=== PATIENT | female | born 1995 | race Two or more races ===

== ENCOUNTER 2023-05-14 10:37 | Outpatient (OUT) | payer BC, SELFPAY ==
--- NOTE | 2023-05-14 | US_ITS ---
[address] [address] Patient Name: EMIGDIO AMES MRN: [id number] date: 1995 Sex: F Assigned Patient Location: US Current Patient Location: LAB Accession/Order Number: [id number] Exam Date: 05/14/2023 10:40 Report Date: 05/14/2023 11:39 At the request of: SKYE GOINS Procedure: US OB transvaginal EXAMINATION: US OB transvaginal HISTORY: ANATOMY COMPARISON: No relevant comparison available. FINDINGS: Claros intrauterine gestation Gestational sac: 4.6 cm, 10 weeks 1 day CRL: 4.2 cm, 11 weeks 1 day Yolk sac: 4.5 mm Heart rate: 162 bpm. Cervix: Closed, 3.2 cm Uterus: Normal, anteverted, anteflexed The ovaries are normal Clinical age: 14 weeks 1 day Clinical GANESH: 11/11/2023 Ultrasound age: 11 weeks 1 day Ultrasound GANESH: 12/02/2023 US/US OB transvaginal IMPRESSION: Viable claros intrauterine gestation measuring 11 weeks 1 day Electronically authenticated by: ZHEN MATT Date: 05/14/2023 11:39
== END 2023-05-14 10:38 | disposition home or self-care (01) ==
LOC: US 10:37
PROVIDERS: Visit Provider Obstetrics & Gynecology
DX: Z34.80 Encounter for supervision of other normal pregnancy, unspecified trimester (principal); Z3A.10 10 weeks gestation of pregnancy; N92.6 Irregular menstruation, unspecified
CPT/HCPCS: 36415; 76817; 83036; 84443; 85025; 86592; 86762; 86803; 86850; 86900; 86901; 87086; 87340; 87389

== ENCOUNTER 2023-05-14 11:35 | Outpatient (OUT) | payer BC, SELFPAY ==
[2023-05-14 12:11] LABS: Basophils Absolute Auto 0.1 10^3/uL (0.0-0.1); Basophils Percent Auto 0.8 % (0.2-2.0); Eosinophils Absolute Auto 0.1 10^3/uL (0.0-0.7); Eosinophils Percent Auto 0.8 % (0.9-7.0); Hematocrit 39.3 % (36.0-48.0); Hemoglobin 13.3 g/dL (12.0-16.0); Immature Granulocytes Abs Auto 0.02 10^3/uL (0.00-0.03); Immature Granulocytes Pct Auto 0.3 % (0.0-0.5); Lymphocytes Absolute Auto 1.6 10^3/uL (1.2-3.8); Lymphocytes Percent Auto 26.5 % (20.5-60.0); Mean Corpuscular HGB Conc 33.8 g/dL (29.9-35.2); Mean Corpuscular Hemoglobin 31.7 pg (26.7-34.0); Mean Corpuscular Volume 93.8 fL (81.0-99.0); Mean Platelet Volume 8.8 fL (9.5-13.5); Monocytes Absolute Auto 0.4 10^3/uL (0.3-0.8); Monocytes Percent Auto 6.2 % (1.7-12.0); Neutrophils Percent Auto 65.4 % (43.0-75.0); Platelet Count 332 10^3/uL (150-450); Red Blood Count 4.19 10^6/uL (4.20-5.40); Red Cell Distribution Width 11.1 % (11.0-15.0); White Blood Count 6.1 10^3/uL (4.0-11.0)
[2023-05-14 12:41] LABS: Estimated Average Glucose 108 mg/dL; Glycohemoglobin A1C 5.4 % (4.5-6.2)
[2023-05-14 12:50] LABS: Thyroid Stimulating Hormone 1.303 uIU/mL (0.358-3.740)
[2023-05-15 06:08] LABS: HBsAg Screen Negative (Negative); HCV Ab Non Reactive (Non Reactive); HIV Ab/p24 Ag Screen Non Reactive (Non Reactive); Rubella Antibodies, IgG 3.23 index (Immune >0.99)
[2023-05-15 11:08] LABS: Rapid Plasma Reagin, Quant Non Reactive titer (NonRea<1:1)
== END 2023-05-14 11:36 | disposition home or self-care (01) ==
LOC: LAB 11:36
PROVIDERS: Visit Provider Obstetrics & Gynecology
DX: Z34.80 Encounter for supervision of other normal pregnancy, unspecified trimester (principal)
CPT/HCPCS: 36415; 83036; 84443; 85025; 86592; 86762; 86803; 86850; 86900; 86901; 87086; 87340; 87389

== ENCOUNTER 2023-06-14 20:32 | Outpatient (REF) | payer BC, SELFPAY ==
[2023-06-17 13:10] LABS: Age Gdln ACOG Testing Note (.); IGP, rfx Aptima HPV ASCU Note (.)
== END 2023-06-14 20:33 | disposition home or self-care (01) ==
LOC: LAB 20:32
PROVIDERS: Visit Provider Obstetrics & Gynecology
DX: Z01.419 Encounter for gynecological examination (general) (routine) without abnormal findings (principal)
CPT/HCPCS: G0145

== ENCOUNTER 2023-09-10 11:15 | Outpatient (OUT) | payer BC, SELFPAY ==
--- OUTSIDE RECORDS SUMMARY | 2023-09-10 11:25 | XMS_ITS | CCD ---
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 0 07/14/2023 Discontinued (Therapy completed) 24 hr buPROPion hydrochloride 150 mg extended release oral tablet (4 sources) Aminoketone take 1 tablet by mouth every twenty-four hours in the morning buPROPion XL (Wellbutrin XL) 150 MG 24 hr tablet Take 150 mg by mouth in the morning. 0 Active dextroamphetamine/amphe tamine (ADDERALL XR ORAL) (2 sources) take 30 mg by mouth every other day, then take 10 mg by mouth every other day dextroamphetamine /amphetamine (ADDERALL XR ORAL) Take 30 mg by mouth every other day. 10mg on every other day 0 Active take 30 mg by mouth in the morning dextroamphetamine/amphetamine (ADDERALL XR ORAL) Take 30 mg by mouth in the morning. 0 Active docusate sodium 100 mg oral capsule (4 sources) Start: 03-31-2023 take 1 capsule by mouth in the morning docusate sodium (Colace) 100 MG capsule Take 100 mg by mouth in the morning. 0 03/31/2023 Active docusate sodium (COLACE ORAL) Take by mouth. 0 Active ondansetron 4 mg oral tablet (2 sources) Serotonin-3 Receptor Antagonist take 1 tablet by mouth every eight hours as needed for nausea and vomiting ondansetron (ZOFRAN) 4 mg tablet Take 1 tablet (4 mg total) by mouth every 8 (eight) hours as needed for nausea or vomiting. 0 Active PNV no.95/ferrous fum/folic ac ( ORAL) (2 sources) PNV no.95/ferrou s fum/folic ac ( ORAL) Take by mouth. 0 Active MV-Min-Fe Fum-FA-DHA ( 1 PO) (2 sources) MV-Min- Fe Fum-FA-DHA ( 1 PO) Take by mouth 0 Active valACYclovir 500 mg oral tablet (4 sources) Herpesvirus Nucleoside Analog DNA Polymerase Inhibitor, Herpes Simplex Virus Nucleoside Analog DNA Polymerase Inhibitor, Herpes Zoster Virus Nucleoside Analog DNA Polymerase Inhibitor take 1 tablet by mouth in the morning valACYclovir (Valtrex) 500 MG tablet Take 500 mg by mouth in the morning. 0 Active valacyclovir HCl (VALTREX ORAL) Take by mouth. 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 ; Translations: [Other mental disorders complicating , unspecified trimester] Onset: 07-05-2023 07-05-2023 Episodic Other complications of (1 source) Maternal drug exposure; Translations: [Supervision of other high risk pregnancies, first trimester] 07-06-2023 Episodic Other and delivery including normal (2 sources) Second trimester ; Translations: [Encounter for supervision of normal , unspecified, second trimester] 07-09-2023 Episodic Other screening for suspected conditions (not mental disorders or infectious disease) (1 source) Patient encounter status; Translations: [Encounter for other specified screening] 07-06-2023 Episodic Residual codes; unclassified (1 source) Gestation period, 18 weeks; Translations: [18 weeks gestation of ] 07-05-2023 Episodic Results Test Name Value Interpretation Reference Range Facil ity Urinalysis macro (dipstick) panel (U)Ordered By: Celia Chou on 07-14-2023 Bilirubin, UA Negative Negative - 4(70) +++ mg/dL [facility] Blood, UA Negative Negative - 50 Jer/mcL [facility] Clarity, UA Clear [facility] Color, UA Yellow [facility] Glucose, UA Negative Negative - 1999(110) ++++ mg/dL [facility] Interpretation and review of laboratory results Abnormal [facility] Ketones, UA Negative Negative - 160(16) ++++ mg/dL [facility] Leukocytes, UA Positive Negative - 500+++ Aretha/mcL [facility] Nitrite, UA Negative Negative - Positive [facility] pH, UA 6.5 5 - 9 [facility] [place] Protein, UA Negative Negative - 1999(20) ++++ mg/dL [facility] Spec Grav, UA 1.010 1 - 1.03 [facility] Urobilinogen, UA 0.2 0.2 - 12 mg/dL [facility] with or without consu lton 07-06-2023 IMPRESSION: 1. Single intrauterine size consistent with dates. 2. Transvaginal Cervical Length = 3.1 cm. RECOMMENDATIONS: 1. Please see M consultation documentation from today's encounter. 2. Subsequent follow up or other follow up as clinically determined by primary OB provider unless otherwise specified by [facility]. 3. Results forwarded to ordering provider so they can follow up with the patient as necessary. [facility] OBSTETRICS REPORT (Signed Final 07/06/2023 11:40) PATIENT INFO: ID #: [id number] : [birth year] (28 yrs)(F) Name: EMIGDIO VAZQUEZ Visit Date: 07/06/2023 10:12 PERFORMED BY: Attending: Frandy Zavala MD Performed By: Dinorah Rivers RDMS Referred By: Juan Weaver. Address: [address] [place] [address] [place] [address] Location: [facility] SERVICE(S) PROVIDED: Comprehensive Anatomic Survey 15567 OB Transvaginal 74028 INDICATIONS: Screening for anatomic survey Z36.89 Screening for cervical length Z36.86 Known or suspected damage to fetus by O35.5XX0 drugs ; adderall use VITAL SIGNS: Weight (lb): 141.2 Height: 5'4 BMI: 24.23 EVALUATION: Num Of Fetuses: 1 Heart Rate(bpm): 149 Cardiac Activity: Present & appears normal Presentation: Cephalic Placenta: Anterior, away from cervical os P. Cord Insertion: Eccentric (>2cm from edge) Amniotic Fluid BRITTNI FV: Subjectively within normal limits BIOMETRY: BPD: 40.7 mm G.Age: 18w 2d 53 % OFD: 53.9 mm HC: 153 mm G.Age: 18w 2d 43 % AC: 130.6 mm G.Age: 18w 4d 58 % FL: 25.8 mm G.Age: 17w 6d 27 % HUM: 25.5 mm G.Age: 18w 0d 46 % CER: 18.6 mm G.Age: 18w 2d 53 % NFT: 4.28 mm LV: 5.7 mm CM: 6.3 mm TIB: 22.9 mm G.Age: 18w 1d 50 % CI: 75.5 % 70 - 86 FL/HC: 16.9 % 15.8 - 18 HC/AC: 1.17 1.07 - 1.29 FL/BPD: 63.4 % FL/AC: 19.8 % 20 - 24 Est. FW: 230 gm 0 lb 8 oz 42 % OB HISTORY: : 2 SAB: 1 GESTATIONAL AGE: LMP: 18w 2d Date: 02/28/23 GANESH: 12/05/23 U/S Today: 18w 2d GANESH: 12/05/23 Best: 18w 2d Det. By: LMP (02/28/23) GANESH: 12/05/23 TARGETED ANATOMY: Central Nervous System Calvarium/Cranial V.: Appears normal Intracranial Eliza: Appears normal Cavum: Appears normal Parenchyma: Appears Normal Lateral Ventricles: Appears normal Choroid Plexus: Appears normal Cereb./Vermis: Appears normal Cisterna Magna: Appears normal Midline Falx: Appears Normal Spine Cervical: Appears normal Thoracic: Appears normal Lumbar: Appears normal Sacral: Appears normal Shape/Curvature: Appears Normal Head/Neck Face: Not well visualized Lips: Appears normal Neck: Could not document Nuchal Fold: Appears normal Nasal Bone: Could Not Document Profile: Could not document Orbits/Eyes: Could not document Mandible: Could not document Maxilla: Could not document Thorax Thoracic Contour: Could not document Lungs: Could not document 4 Chamber View: Appears normal Cardiac Activity: Appears Normal Cardiac Rhythm: Normal Cardiac Situs: Appears normal Rt Outflow Tract: Could not document Lt Outflow Tract: Could not document Aortic Arch: Could not document Ductal Arch: Could not document SVC: Could not document Interventr. Septum: Not well visualized Cardiac [place]: Appears normal Diaphragm: Not well visualized 3 Vessel View: Appears normal 3 V Trachea View: Not well visualized IVC: Could not document Crossing: Could not document Abdomen Ventral Wall: Appears normal Cord Insertion: Appears normal Situs: Ap (more content not included)... [facility] Frandy Zavala MD - 07/06/2023 OBSTETRICS REPORT (Signed Final 07/06/2023 11:40) PATIENT INFO: ID #: [id number] : [birth year] (28 yrs)(F) Name: EMIGDIO VAZQUEZ Visit Date: 07/06/2023 10:12 PERFORMED BY: Attending: Frandy Zavala MD Performed By: Dinorah Rivers RDMS Referred By: Juan Palafox DO Ref. Address: [address] [place] [address] [place] [address] Location: [facility] SERVICE(S) PROVIDED: Comprehensive Anatomic Survey 21202 OB Transvaginal 19733 INDICATIONS: Screening for anatomic survey Z36.89 Screening for cervical length Z36.86 Known or suspected damage to fetus by O35.5XX0 drugs ; adderall use VITAL SIGNS: Weight (lb): 141.2 Height: 5'4 BMI: 24.23 EVALUATION: Num Of Fetuses: 1 Heart Rate(bpm): 149 Cardiac Activity: Present & appears normal Presentation: Cephalic Placenta: Anterior, away from cervical os P. Cord Insertion: Eccentric (>2cm from edge) Amniotic Fluid BRITTNI FV: Subjectively within normal limits BIOMETRY: BPD: 40.7 mm G.Age: 18w 2d 53 % OFD: 53.9 mm HC: 153 mm G.Age: 18w 2d 43 % AC: 130.6 mm G.Age: 18w 4d 58 % FL: 25.8 mm G.Age: 17w 6d 27 % HUM: 25.5 mm G.Age: 18w 0d 46 % CER: 18.6 mm G.Age: 18w 2d 53 % NFT: 4.28 mm LV: 5.7 mm CM: 6.3 mm TIB: 22.9 mm G.Age: 18w 1d 50 % CI: 75.5 % 70 - 86 FL/HC: 16.9 % 15.8 - 18 HC/AC: 1.17 1.07 - 1.29 FL/BPD: 63.4 % FL/AC: 19.8 % 20 - 24 Est. FW: 230 gm 0 lb 8 oz 42 % OB HISTORY: : 2 SAB: 1 GESTATIONAL AGE: LMP: 18w 2d Date: 02/28/23 GANESH: 12/05/23 U/S Today: 18w 2d GANESH: 12/05/23 Best: 18w 2d Det. By: LMP (02/28/23) GANESH: 12/05/23 TARGETED ANATOMY: Central Nervous System Calvarium/Cranial V.: Appears normal Intracranial Eliza: Appears normal Cavum: Appears normal Parenchyma: Appears Normal Lateral Ventricles: Appears normal Choroid Plexus: Appears normal Cereb./Vermis: Appears normal Cisterna Magna: Appears normal Midline Falx: Appears Normal Spine Cervical: Appears normal Thoracic: Appears normal Lumbar: Appears normal Sacral: Appears normal Shape/Curvature: Appears Normal Head/Neck Face: Not well visualized Lips: Appears normal Neck: Could not document Nuchal Fold: Appears normal Nasal Bone: Could Not Document Profile: Could not document Orbits/Eyes: Could not document Mandible: Could not document Maxilla: Could not document Thorax Thoracic Contour: Could not document Lungs: Could not document 4 Chamber View: Appears normal Cardiac Activity: Appears Normal Cardiac Rhythm: Normal Cardiac Situs: Appears normal Rt Outflow Tract: Could not document Lt Outflow Tract: Could not document Aortic Arch: Could not document Ductal Arch: Could not document SVC: Could not document Interventr. Septum: Not well visualized Cardiac [place]: Appears normal Diaphragm: Not well visualized 3 Vessel View: Appears normal 3 V Trachea View: Not well visualized IVC: Could not document Crossing: Could not document Abdomen Ventral Wall: Appears normal Cord Insertion: Appears normal Situs: Appears normal Stomach: Appears normal Lt Kidney: Appears normal Rt Kidney: Appears normal Bladder: Appears normal Bowel: Appears normal Extremities Lt Humerus: Appears normal Rt Humerus: Appears normal Lt Forearm: Appears normal Rt Forearm: Appears normal Lt Hand: Not well visualized Rt Hand: Appears normal Lt Femur: Appears normal Rt Femur: Appears normal Lt Lower Leg: Appears normal Rt Lower Leg: Appears normal Lt Foot: Appears normal Rt Foot: Appears normal Other Umbilical Cord: Appears normal Genitalia: Male CERVIX UTERUS ADNEXA: Cervix Length: 3.11 cm. Appears closed, without funnelling Uterus Gravid uterus Right Ovary Not visualized Left Ovary Not visualized [place] No fluid seen Adnexa No adnexal masses identified COMMENTS: 1. Ultrasound is not diagnostic for feta (more content not included)... [facility] Radiology Study observation (narrative) [facility] Unlisted Genetic Teston 05-01 SEE SCANNED REPORT MANUAL LY TRANSCRIBED RESULTS [facility] HIV 1&2 AB/AG Screen (P24 AG )on 05-18-2023 HIV 1&2 AB/AG Non-Reactive [facility] Hepatitis B surface antigeno n 05-18-2023 Hepatitis B Surface Antigen Negative [facility] No Panel Informationon 05-18 [facility] Rubella IGG immune statuson 05-18-2023 Rubella immune IgG immune [facility] Syphilis Total(Unknown Syphi lis Status)on 05-18-2023 Syphilis Non-Reactive [facility] TSHon 05-14-2023 Thyroid Stimulating (3Rd Generation) Hormone/ Tsh 1.303 [facility] Ultrasound officeon 05-14-20 SEE SCANNED REPORT MANUAL LY TRANSCRIBED RESULTS [facility] Radiology Study observation (narrative) [facility] Vital Signs Date Time Vital Sign Value Performing Clinician Faci lity 07-14-2023 09:45-0500 Body weight 64.77 kg Geovanna HUIZAR Work Phone: [facility] 07-14-2023 09:45-0500 Diastolic blood pressure 70 mm[Hg] Geovanna HUIZAR Work Phone: [facility] 07-14-2023 09:45-0500 Systolic blood pressure 112 mm[Hg] Geovanna HUIZAR Work Phone: [facility] 07-06-2023 10:17-0500 Body height 162.6 cm Frandy Zavala MD Work Phone: [facility] 07-06-2023 10:17-0500 Body mass index (BMI) [Ratio] 24.2 kg/m2 Frandy Zavala MD Work Phone: [facility] 07-06-2023 10:17-0500 Body weight 63.96 kg Frandy Zavala MD Work Phone: [facility] 07-06-2023 10:17-0500 Diastolic blood pressure 82 mm[Hg] Frandy Zavala MD Work Phone: [facility] 07-06-2023 10:17-0500 Heart rate 88 /min Frandy Zavala MD Work Phone: [facility] 07-06-2023 10:17-0500 Systolic blood pressure 127 mm[Hg] Frandy Zavala MD Work Phone: [facility] Encounters Encounter Date Encounter Type Care Provider Facility Start: 07-14-2023 End: 07-14-2023 flow sheet Geovanna HUIZAR Work Phone: [facility] Comment on above: Second trimester pre gnancy Start: 07-06-2023 End: 07-06-2023 Office consultation new/estab patient 60 min Frandy Zavala MD Work Phone: [facility] Comment on above: 18 weeks gestation o f (Primary Dx); Attention deficit hyperactivity disorder (ADHD), unspecified ADHD type; Depression affecting ; Medication exposure during first trimester of ; Encounter for anatomic survey Start: 06-18-2023 Chart abstracting Frandy chilel MD Work Phone: [facility] Procedures Date Procedure Procedure Detail Performing Clinician Start: 07-14-2023 Urnls dip stick/tabl et rgnt non-auto w/o micrscp Geovanna HUIZAR Work Phone: Start: 05-18-2023 HIV 1&2 AB/AG SCREEN (P24 AG) Not In System Ref Prov Start: 05-18-2023 [place] hepatitis b surface antigen Not In System Ref Prov Start: 05-18-2023 Syphilis test non-treponemal antibody qual Not In System Ref Prov Start: 05-14-2023 Assay of thyroid stimulating hormone tsh Not In System Ref Prov Start: 05-14-2023 UNLISTED GENETIC TEST N ot In System Ref Prov Start: 05-14-2023 US OFFICE Not In Sys tem Ref Prov Plan of Treatment Date Care Activity Detail Author Start: 07-06-2024 Adult BMI Screening Adult BMI Screen ing [facility] Start: 07-06-2024 Tobacco Screening Tobacco Screening [facility] Start: 07-06-2024 End: 07-06-2024 US MFM with or without consult US MFM with or without consult Imaging Routine Encounter for anatomic survey Expected: 07/06/2024 (Approximate), Expires: 07/06/2024 [facility] Work Phone: Comment on above: Expected: 07/06/2024 (Approximate), Expires: 07/06/2024 Start: 08-12-2023 End: 08-12-2023 Patient encounter procedure 08/12/2023 2:15 PM EDT Appointment [facility] [address] [place] [address] [facility] Start: 08-11-2023 End: 08-11-2023 Patient encounter procedure 08/11/2023 1:50 PM EDT Routine [facility] [address] [place] [address] Juan Palafox, [address] [place] [address] [facility] Start: 07-06-2023 End: 07-06-2023 Patient encounter procedure 07/06/2023 10:30 AM EST Office Visit [facility] [address] [place] [address] Frandy Zavala MD [address] [facility], [address] [place] [address] [facility] Start: 07-06-2023 End: 07-06-2023 Patient encounter procedure 07/06/2023 9:15 AM EST Appointment [facility] [address] [place] [address] [facility] Start: 01-29-2023 COVID-19 Vaccine ( season) COVID-19 Vaccine ( season) [facility] Start: 01-29-2023 Influenza vaccination Influenza Vacc ine [facility] Start: 01-03-2017 DTaP,Tdap and Td Vaccines (7 - Td or Tdap) DTaP,Tdap and Td Vaccines (7 - Td or Tdap) [facility] Start: 2015 Screening for malign ant neoplasm of cervix Pap Smear [facility] Start: 2013 DTaP,Tdap and Td Vaccines (1 - Tdap) DTaP,Tdap and Td Vaccines (1 - Tdap) [facility] Start: 02-05-2012 Adult BMI Screening Adult BMI Screen ing [facility] Start: 2006 Depression Screening Depression Scre ening [facility] Start: 2006 Tobacco Screening Tobacco Screening [facility] Payers Date Payer Category Payer Unknown [id number] Social History Date Type Detail Facility Start: 06-18-2023 Tobacco smoking stat [facility] Tobacco smoking consumption unknown [facility] Start: 03-11-2023 [facility] Start: 1995 Sex Assigned At Female P [facility] Start: 12-03-2022 Gender identity Identifies as female gender (finding) [facility] Start: 07-06-2023 Sexual orientation Not on file [facility] Start: 07-06-2023 Tobacco smoking stat [facility] Ex-smoker [facility] History of tobacco use Current smoker [facility] History of tobacco use Cigarette Smoker P [facility] Start: 07-06-2023 Tobacco use and exposure Smoke less tobacco non-user [facility] Start: 07-06-2023 Alcohol intake Ex-drinker (finding) [facility] Start: 07-06-2023 History of Social function [facility] Within the past 12 months we worried whether our food would run out before we got money to buy more. Never True [facility] History of Present illness Narrative 07-14-2023 BHUPENDRA Spicer - 07/14/2023 9:30 AM EST Note Date & Type Note Facility 07-14-2023 History of Presen t illness Narrative Reason for Appointment: Patient ID: Emigdio Vazquez is a 28 y.o. female who presents for Routine Visit Patient presents today for Return OB appointment. Current Medications: has a current medication list which includes the following prescription(s): bupropion xl, docusate sodium, mv-min-fe fum-fa-dha, and valacyclovir. Medical History: Active Ambulatory Problems Diagnosis Date Noted No Active Ambulatory Problems Resolved Ambulatory Problems Diagnosis Date Noted No Resolved Ambulatory Problems No Additional Past Medical History Family History Problem Relation Name Age of Onset Cervical cancer Mother Hypertension Mother Heart attack Father Social History Tobacco Use Smoking status: Not on file Smokeless tobacco: Not on file Substance Use Topics Alcohol use: Not on file Drug use: Not on file History reviewed. No pertinent surgical history. No Known Allergies Review of Systems: Review of Systems Constitutional: Negative. HENT: Negative. Eyes: Negative. Respiratory: Negative. Cardiovascular: Negative. Gastrointestinal: Negative. Musculoskeletal: Negative. Skin: Negative. Neurological: Negative. Psychiatric/Behavioral: Negative. All other systems reviewed and are negative. Hematological: Negative. Endocrine: Negative. Objective Physical Exam Constitutional: Appearance: Normal appearance. She is normal weight. HENT: Head: Normocephalic. Cardiovascular: Rate and Rhythm: Normal rate. Pulses: Normal pulses. Pulmonary: Effort: Pulmonary effort is normal. Breath sounds: Normal breath sounds. Abdominal: Palpations: Abdomen is soft. Musculoskeletal: General: Normal range of motion. Neurological: General: No focal deficit present. Mental Status: She is alert and oriented to person, place, and time. Psychiatric: Mood and Affect: Mood normal. Behavior: Behavior normal. Thought Content: Thought content normal. Judgment: Judgment normal. Vitals and nursing note reviewed. Vitals: There is no height or weight on file to calculate BMI. BP: 112/70 Patient's last menstrual period was 2023. Assessment/Plan Encounter Diagnosis Name Primary? Second trimester Patient presents today for a routine obstetrics appointment. Patient is currently 19w6d . Patient states she is doing well but has complaints of being tired due to current . Patient has verbalizes frequent movement. labor precautions was discussed/given. Follow Up: Patient is to return to office in 2 week for routine OB appointment. Patient presents today for a routine obstetrics appointment. Patient is currently 19w6d with a Estimated Date of Delivery: 12/02/23. Documented by BHUPENDRA Spicer on behalf of: BHUPENDRA Spicer documented in this encounter [facility] History of Present illness Narrative 07-06-2023 Frandy Zavala MD - 07/06/2023 10:30 AM Bib Kearney RN - 07/06/2023 10:30 AM EST Note Date & Type Note Facility 07-06-2023 History of Present illness Narrative [facility] Consult Note Reason For Consult: medication management HPI: Emigdio Vazquez is a 28 y.o. at 18w2d with Estimated Date of Delivery: 12/02/23 based on who presented for consultation from Juan Silva DO regarding Chief Complaint Patient presents with Med Management I have reviewed the pertinent available patient records including but not limited to notes, labs and images She presents today with her . She reports that she is doing well. She reports normal movements and she denies leakage of fluid, contractions or vaginal bleeding. She denies fever, chills, nausea, vomiting, shortness of breath, chest pain, headache, blurry vision, right upper quadrant pain or edema. Complications: ADHD on adderall. On adderall 4 years. Depression/anixety on buprioprion 6 years. Reports stable mood denies any SI Denies family history of: Learning difficulties, congenital anomalies, DVT/VTE, early-onset cancer, early-onset cardiac disease or other inherited conditions Denies smoking, alcohol or other substance use in She has had low risk aneuploidy screen for select aneuploidy of chromosomes 21, 13, 18 and sex chromosomes. 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 No pertinent surgical history. Allergies: No Known Allergies Meds: Prior to Admission medications Medication Sig Start Date End Date Taking? Authorizing Provider buPROPion XL (WELLBUTRIN XL) 150 mg 24 hr tablet Take 1 tablet (150 mg total) by mouth in the morning. Not In System Ref Prov dextroamphetamine/amphetamine (ADDERALL XR ORAL) Take 30 mg by mouth in the morning. Not In System Ref Prov docusate sodium (COLACE ORAL) Take by mouth. Not In System Ref Prov ondansetron (ZOFRAN) 4 mg tablet Take 1 tablet (4 mg total) by mouth every 8 (eight) hours as needed for nausea or vomiting. Not In System Ref Prov PNV no.95/ferrous fum/folic ac ( ORAL) Take by mouth. Not In System Ref Prov valacyclovir HCl (VALTREX ORAL) Take by mouth. Not In System Ref Prov SH: Social History Socioeconomic History Marital status: Spouse name: Not on file Number of children: Not on file Years of education: Not on file Highest education level: Not on file Occupational History Not on file Tobacco Use Smoking status: Former Types: Cigarettes Smokeless tobacco: Never Vaping Use Vaping Use: Never used Substance and Sexual Activity Alcohol use: Not Currently Drug use: Never Sexual activity: Yes Partners: Male Other Topics Concern Not on file Social History Narrative Not on file Social Determinants of Health Financial Resource Strain: Not on file Food Insecurity: No Food Insecurity (07/06/2023) Hunger Screening Food Insecurity - Worry: Never True Food Insecurity - Inability: Never True Transportation Needs: Not on file Physical Activity: Not on file Stress: Not on file Social Connections: Not on file Interpersonal Safety: Not on file Housing Instability: Not on file Physical Exam: Vital Signs Vitals: 07/06/23 1017 BP: 127/82 BP Site: Right Arm BP Postition: Lying BP CUFF SIZE: Other Pulse: 88 Weight: 64 kg (141 lb) Height: 162.6 cm (5' 4 ) Physical Exam: Gen: Not in acute distress, alert and oriented. Eyes: Pupils equal and reactive Chest: Nonlabored breathing Cardiac: Pulse was regular on vital signs assessment Abdomen: Gravid Skin/extremities: Appears intact. No visible lesions MS:no visible edema Neuro: No focal deficits Notes/Imaging/Labs reviewed Abstract on 06/18/2023 Component Date Value Ref Range Status Syphilis 05/18/2023 non-reactive Final Rubella immune IgG 05/18/2023 immune Final HIV 1&2 AB/AG 05/18/2023 non-reactive Final Hepatitis B Surface Antigen 05/18/2023 negative Final Thyroid Stimulating (3Rd Generatio* 05/14/2023 1.303 Final Ultrasound findings Pertinent Ultrasound findings are see report Assessment/Plan 28 y.o. @ at 18w2d with Estimated Date of Delivery: 12/02/23 here for consultation regardin. 18 weeks gestation of 2. Attention deficit hyperactivity disorder (ADHD), unspecified ADHD type 3. Depression affecting 4. Medication exposure during first trimester of - [facility] with or without consult; Future I reviewed with the patient the diagnosis of attention deficit hyperactivity disorder as well as depression during the . Amphetamines and their byproducts cross the placenta. Early ADHD medication use was more commonly reported by mothers of infants/fetuses with gastroschisis (crude odds ratio [cOR]: 2.9, 95% confidence interval [CI] = [1.2, 6.9]), omphalocele (cOR: 4.0, 95% CI = [1.2, 13.6]), and transverse limb deficiency (cOR: 3.3, 95% CI = [1.1, 9.6]) [PMID: 52466507]. Also methamphetamine exposure during has been associated with maternal and morbidity and mortality. In studies that controlled for confounders, methamphetamine exposure was associated with a two- to fourfold increase in risk of growth restriction, gestational hypertension, preeclampsia, abruption, , intrauterine demise, , and infant . [PMIDs: 70310230; 47596308;32926054] A meta-analysis of eight studies that compared outcomes for females using methamphetamines with control individuals also reported younger gestational age at , lower weight, smaller head circumference, shorter body length, and lower scores for exposed infants. The meta-analysis did not find significant differences in the rates of preeclampsia and hypertensive disorders. [PMID 62581588]. Amphetamines, including methamphetamine, are excreted into breast milk. Would not recommend if active use. Reviewed with the patient that most of the data regarding exposure in come from studies where the patients were using other substances including but not limited to smoking and alcohol. There are not enough data on the use of ADHD medications in to make a clear statement about their safety. Available evidence for amphetamines suggests no increased risk of malformations with use of therapeutic doses, and inadvertent exposure during is unlikely to be harmful. Exposed infants might have slightly lower weights, but the clinical relevance of this is unclear. I reviewed with the patient that my recommendation is for her to come off Adderall and her ADHD to be closely monitored. During most patients that come off the Adderall do well. If the ADHD becomes poorly-controlled and affects her quality of life then the medication should be readdressed. There have been patients that have been successfully on Adderall during with overall good outcomes, however each patient should be individualized and risks should be readdressed again. The patient agrees to come off the Adderall. She will follow-up with her PCP and OBGYN further. Bupropion is a non - stimulant drug acting as a norepinephrine-dopamine reuptake inhibitor (NDRI), primarily affecting the reward-pleasure mesolimbic dopaminergic system. Bupropion, similar to other antidepressants is not associated with an increased rate of congenital anomalies. Thus, women treated with bupropion can continue treatment during . Practically, there is no data on long-term development. Although cumulative data are limited, maternal bupropion doses of up to 300 mg are associated with low levels of detection in breastmilk that are unlikely to cause adverse effects in infants Reviewed aneuploidy testing that could be performed during . I explained that definitive testing can be obtained by an amniocentesis, which has a 1/800 risk of loss. The limitations of cell free DNA were reviewed. The patient declined amniocentesis Carrier screening in was reviewed. Carrier screening is a type of genetic testing often utilized by those that are or desire that identifies individuals who are heterozygous (carry 1 mutation) in an autosomal recessive or X-linked condition. Carriers are typically asymptomatic and family history is not a good indicator of carrier status. There are many different options as far as how many different conditions can be screened for ranging from the most common conditions (hemoglobinopathies, SMA, and CF) to hundreds of conditions depending on the company. Results take on average 2-3 weeks to receive. Risks, benefits, and limitations of carrier screening were discussed in detail. To think about it. She was given further information Recommendations: Stop Adderall Continue to monitor the patient ADHD symptoms To return in about 4 weeks for completion of the anatomy survey Serial growth ultrasounds every 4 weeks following the anatomy survey can be done in OB office. Weekly NST and DVP from 36 weeks until delivery (to be done in OB office) Continue to address carrier screen with the patient Continue to monitor patient mood. Due to the history of depression she is at risk of depression. Delivery at or after 39 weeks or sooner if clinically indicated Vaginal delivery preferred reserve section for routine indications Notified the sr. merchandise planner about medication exposure Plan reviewed with patient. She vocalized understanding all questions answered. The patient is to continue with routine care in your office Thank you for allowing me to participate in her care. Please contact me if you have any concerns. Frandy Zavala MD, FACOG (she/hers) Maternal- Medicine [facility] [address] [place] [address] This document was created with [email or web address] technology. Though I make every effort to review the dictation as it is transcribed, on occasion the spoken word can be misinterpreted by the technology leading to inappropriate words, phrases, or sentences. This note is addressed to the requesting provider as a consultation for clinical guidance. Specific medical abbreviations are occasionally used and those are generally approved by the [place]?Board of?Obstetrics and?Gynecology?as well as?Kimmie dennison abbreviations. The above plan of care was based solely on the diagnoses for which a consultation was requested. ?More frequent testing may be indicated based on her other medical/obstetrical conditions. The management of other or medical conditions is beyond the scope of requested consultation and will continue to be followed by the primary database management specialist or primary care provider. Note to patient: The Century Cures Act makes medical notes like these available to patients in the interest of transparency. However, be advised this is a medical document. It is intended as peer to peer communication. It is written in medical language and may contain abbreviations or verbiage that are unfamiliar. It may appear blunt or direct. Medical documents are intended to carry relevant information, facts as evident, and the clinical opinion of the practitioner. Headache/epigastric pain/blurry vision/swelling? no Cramping/contractions? no Abnormal vaginal discharge? no Spotting/vaginal bleeding? no Loss of fluid like your water may have broken? no Cats in the home? no Do you change the litter box? Flu vaccine? yes Genetic testing done this here or other office? yes Have you been seen here at [facility] in a previous ? N/a Recent ER visits or hospitalizations? no Bring blood sugar log or meter with you today? (Please bring them with you for every visit at [facility]) n/a Traveled outside the country in the past 6 month no Any concerns that you would like me to mention to the provider today? no documented in this encounter [facility] Instructions 07-06-2023 Patient Instructions Note Date & Type Note Facility 07-06-2023 Instructions Frandy Zavala MD - 07/06/2023 10:30 AM EST [email or web address] documented in this encounter [facility] Note Date & Type Note Facility Evaluation note Diagnosis 18 weeks gestation of - Primary Attention deficit hyperactivity disorder (ADHD), unspecified ADHD type Depression affecting Medication exposure during first trimester of Supervision of other high-risk Encounter for anatomic survey documented in this encounter [facility] note Note Date & Type Note Facility Evaluation note Diagnosis Second trimester state, incidental documented in this encounter [facility] Healthcare Instructions Note Date & Type Note Facility Instructions Not on filedocumented in this en counter [facility] Reason for Referral Specialty Diagnoses / Procedures Referred By Contac t Referred To Contact Maternal and Medicine Diagnoses Encounter for anatomic survey Procedures US MFM with or without consult Frandy Zavala MD [address], [address] [place] [id number] [facility]aternal [facility] [address] [place] [address] Referral ID Status Reason Start Date Expiration Date V isits Requested Visits Authorized [id number] Pending Review 07/06/2023 07/05/2024 1 1 Specialty Diagnoses / Procedures Referred By Jermaine t Referred To Contact Maternal and Medicine Diagnoses Medication exposure during first trimester of Procedures US MFM with or without consult Frandy Zavala MD [address] [place] [id number] [facility] [address] [place] [address] Referral ID Status Reason Start Date Expiration Date V isits Requested Visits Authorized [id number] Pending Review 07/06/2023 07/05/2024 1 1 Additional Source Comments Reason for Visit (unrecogniz ed section and content) Reason Comments Med Management Reason Comments Routine Visit Care Teams (unrecognized sec tion and content) [employer] Relationship Specialty Start Date End Date Pablo Lynch MD [address] [place] [address] PCP - General Family Medicine 01/11/23 FOR RECORDS PERTAINING TO PATIENTS WHO ARE OR HAVE BEEN ENROLLED IN A CHEMICAL DEPENDENCY/SUBSTANCEABUSE PROGRAM, SOME INFORMATION MAY BE OMITTED. This clinical summary was aggregated from multiple sources. Caution should be exercised in using it in the provision of clinical care. This summary normalizes information from multiple sources, and as a consequence, information in this document may materially change the coding, format and clinical context of patient data. In addition, data may be omitted in some cases. CLINICAL DECISIONS SHOULD BE BASED ON THE PRIMARY CLINICAL RECORDS. [employer] provides no warranty or guarantee of the accuracy or completeness of information in this document.
[2023-09-10 12:42] LABS: Basophils Percent Auto 0.4 % (0.2-2.0); Eosinophils Absolute Auto 0.1 10^3/uL (0.0-0.7); Eosinophils Percent Auto 0.5 % (0.9-7.0); Hematocrit 38.2 % (36.0-48.0); Hemoglobin 12.6 g/dL (12.0-16.0); Immature Granulocytes Abs Auto 0.04 10^3/uL (0.00-0.03); Immature Granulocytes Pct Auto 0.4 % (0.0-0.5); Lymphocytes Absolute Auto 1.5 10^3/uL (1.2-3.8); Lymphocytes Percent Auto 15.9 % (20.5-60.0); Mean Corpuscular Hemoglobin 31.4 pg (26.7-34.0); Mean Corpuscular Volume 95.3 fL (81.0-99.0); Mean Platelet Volume 9.4 fL (9.5-13.5); Monocytes Absolute Auto 0.5 10^3/uL (0.3-0.8); Monocytes Percent Auto 5.5 % (1.7-12.0); Neutrophils Absolute Auto 7.3 10^3/uL (1.4-6.5); Neutrophils Percent Auto 77.3 % (43.0-75.0); Platelet Count 278 10^3/uL (150-450); Red Blood Count 4.01 10^6/uL (4.20-5.40); Red Cell Distribution Width 11.9 % (11.0-15.0); White Blood Count 9.5 10^3/uL (4.0-11.0)
[2023-09-10 13:28] LABS: Glucose 1 Hour 120 mg/dL (<130)
== END 2023-09-10 11:16 | disposition home or self-care (01) ==
LOC: LAB 11:15
PROVIDERS: PCP Family Medicine; Visit Provider Obstetrics & Gynecology
DX: Z13.1 Encounter for screening for diabetes mellitus (principal)
CPT/HCPCS: 36415; 82950; 85025

== ENCOUNTER 2023-10-13 07:04 | Outpatient (OUT) | payer OTHER, SELFPAY ==
--- OUTSIDE RECORDS SUMMARY | 2023-10-13 07:06 | XMS_ITS | CCD ---
Author Organization [facility] Care Team Providers Care Fine Arts Instructor Name Role Phone Unavailable Primary Care Provider Pablo Hansen MD Primary Care Provider [phone] Medications Current Medications Medication Drug Class(es) Dates [...] UA Negative Negative - 4(70) +++ mg/dL [facility] Blood, UA Negative Negative - 50 Jer/mcL [facility] Clarity, UA Clear [facility] Color, UA Yellow [facility] Glucose, UA Negative Negative - 1999(110) ++++ mg/dL [facility] Interpretation and review of laboratory results Abnormal [facility] Ketones, UA Negative Negative - 160(16) ++++ mg/dL [facility] Leukocytes, UA Positive Negative - 500+++ Aretha/mcL [facility] Nitrite, UA Negative Negative - Positive [facility] pH, UA 6.5 5 - 9 [facility] Protein, UA Negative Negative - 1999(20) ++++ mg/dL [facility] Spec Grav, UA 1.010 1 - 1.[address] [facility] Urobilinogen, UA 0.2 0.2 - 12 mg/dL [facility] with or without consu lton 07-06-2023 IMPRESSION: 1. Single intrauterine size consistent with dates. 2. Transvaginal Cervical Length = 3.1 cm. RECOMMENDATIONS: 1. Please see M consultation documentation from today's encounter. 2. Subsequent follow up or other follow up as clinically determined by primary OB provider unless otherwise specified by [facility]. 3. Results forwarded to ordering provider so they can follow up with the patient as necessary. [facility] OBSTETRICS REPORT (Signed Final 07/06/2023 11:40) PATIENT INFO: ID #: [id number] : [birth year] (28 yrs)(F) Name: EMIGDIO VAZQUEZ Visit Date: 07/06/2023 10:12 PERFORMED BY: Attending: Frandy Zavala MD Performed By: Dinorah Rivers RDMS Referred By: Juan Weaver. Address: [address] [place] [address] [place] [address] Location: [facility] SERVICE(S) PROVIDED: Comprehensive Anatomic Survey 02622 OB Transvaginal 62723 INDICATIONS: Screening for anatomic survey Z36.89 Screening [...] document Interventr. Septum: Not well visualized Cardiac [place]: Appears normal Diaphragm: Not well visualized 3 Vessel View: Appears normal 3 V Trachea View: Not well visualized IVC: Could not document Crossing: Could not document Abdomen Ventral Wall: Appears normal Cord Insertion: Appears normal Situs: Ap (more content not included)... [facility] Frandy Zavala MD - 07/06/2023 OBSTETRICS REPORT (Signed Final 07/06/2023 11:40) PATIENT INFO: ID #: [id number] : [birth year] (28 yrs)(F) Name: EMIGDIO VAZQUEZ Visit Date: 07/06/2023 10:12 PERFORMED BY: Attending: Frandy Zavala MD Performed By: Dinorah Rivers RDMS Referred By: Juan Palafox DO Ref. Address: [address] [place] [address] [place] [address] Location: [facility] SERVICE(S) PROVIDED: Comprehensive Anatomic Survey 81525 OB Transvaginal 26493 INDICATIONS: Screening for anatomic survey Z36.89 Screening [...] document Interventr. Septum: Not well visualized Cardiac [place]: Appears normal Diaphragm: Not well visualized 3 [...] diagnostic for feta (more content not included)... [facility] Radiology Study observation (narrative) [facility] Unlisted Genetic Teston 05-01 SEE SCANNED REPORT MANUAL LY TRANSCRIBED RESULTS [facility] HIV 1&2 AB/AG Screen (P24 AG )on 05-18-2023 HIV 1&2 AB/AG Non-Reactive [facility] Hepatitis B surface antigeno n 05-18-2023 Hepatitis B Surface Antigen Negative [facility] No Panel Informationon 05-18 [facility] Rubella IGG immune statuson 05-18-2023 Rubella immune IgG immune [facility] Syphilis Total(Unknown Syphi lis Status)on 05-18-2023 Syphilis Non-Reactive [facility] TSHon 05-14-2023 Thyroid Stimulating (3Rd Generation) Hormone/ Tsh 1.303 [facility] Ultrasound officeon 05-14-20 SEE SCANNED REPORT MANUAL LY TRANSCRIBED RESULTS [facility] Radiology Study observation (narrative) [facility] Vital Signs Date Time Vital Sign Value Performing Clinician Faci lity 07-14-2023 09:45-0500 Body weight 64.77 kg Geovanna HUIZAR Work Phone: [facility] 07-14-2023 09:45-0500 Diastolic blood pressure 70 mm[Hg] Geovanna HUIZAR Work Phone: [facility] 07-14-2023 09:45-0500 Systolic blood pressure 112 mm[Hg] Geovanna HUIZAR Work Phone: [facility] 07-06-2023 10:17-0500 Body height 162.6 cm Frandy Zavala MD Work Phone: [facility] 07-06-2023 10:17-0500 Body mass index (BMI) [Ratio] 24.2 kg/m2 Frandy Zavala MD Work Phone: [facility] 07-06-2023 10:17-0500 Body weight 63.96 kg Frandy Zavala MD Work Phone: [facility] 07-06-2023 10:17-0500 Diastolic blood pressure 82 mm[Hg] Frandy Zavala MD Work Phone: [facility] 07-06-2023 10:17-0500 Heart rate 88 /min Frandy Zavala MD Work Phone: [facility] 07-06-2023 10:17-0500 Systolic blood pressure 127 mm[Hg] Frandy Zavala MD Work Phone: [facility] Encounters Encounter Date Encounter Type Care Provider Facility Start: 07-14-2023 End: 07-14-2023 flow sheet Geovanna HUIZAR Work Phone: [facility] Comment on above: Second trimester pre gnancy Start: 07-06-2023 End: 07-06-2023 Office consultation new/estab patient 60 min Frandy Zavala MD Work Phone: [facility] Comment on above: 18 weeks gestation o f (Primary Dx); Attention deficit hyperactivity disorder (ADHD), unspecified ADHD type; Depression affecting ; Medication exposure during first trimester of ; Encounter for anatomic survey Start: 06-18-2023 Chart abstracting Frandy chilel MD Work Phone: [facility] Procedures Date Procedure Procedure Detail Performing Clinician [...] Adult BMI Screening Adult BMI Screen ing [facility] Start: 07-06-2024 Tobacco Screening Tobacco Screening [facility] Start: 07-06-2024 End: 07-06-2024 US [facility] with or without consult US MFM with or without consult Imaging Routine Encounter for anatomic survey Expected: 07/06/2024 (Approximate), Expires: 07/06/2024 [facility] Work Phone: Comment on above: Expected: 07/06/2024 (Approximate), Expires: 07/06/2024 Start: 08-12-2023 End: 08-12-2023 Patient encounter procedure 08/12/2023 2:15 PM EDT Appointment [facility] [address] [place] [address] [facility] Start: 08-11-2023 End: 08-11-2023 Patient encounter procedure 08/11/2023 1:50 PM EDT Routine [facility] [address] [place] [address] Juan Palafox, [address] [place] [address] [facility] Start: 07-06-2023 End: 07-06-2023 Patient encounter procedure 07/06/2023 10:30 AM EST Office Visit [facility] [address] [place] [address] Frandy Zavala MD [address] [facility], [address] [place] [address] [facility] Start: 07-06-2023 End: 07-06-2023 Patient encounter procedure 07/06/2023 9:15 AM EST Appointment [facility] [address] [place] [address] [facility] Start: 01-29-2023 COVID-19 Vaccine ( season) COVID-19 Vaccine ( season) [facility] Start: 01-29-2023 Influenza vaccination Influenza Vacc ine [facility] Start: 01-03-2017 DTaP,Tdap and Td Vaccines (7 - Td or Tdap) DTaP,Tdap and Td Vaccines (7 - Td or Tdap) [facility] Start: 2015 Screening for malign ant neoplasm of cervix Pap Smear [facility] Start: 2013 DTaP,Tdap and Td Vaccines (1 - Tdap) DTaP,Tdap and Td Vaccines (1 - Tdap) [facility] Start: 02-05-2012 Adult BMI Screening Adult BMI Screen ing [facility] Start: 2006 Depression Screening Depression Scre ening [facility] Start: 2006 Tobacco Screening Tobacco Screening [facility] Payers Date Payer Category Payer Unknown [id number] Social History Date Type Detail Facility Start: 06-18-2023 Tobacco smoking stat [facility] Tobacco smoking consumption unknown [facility] Start: 03-11-2023 [facility] Start: 1995 Sex Assigned At Female [facility] Start: 12-03-2022 Gender identity Identifies as female gender (finding) [facility] Start: 07-06-2023 Sexual orientation Not on file [facility] Start: 07-06-2023 Tobacco smoking stat [facility] Ex-smoker [facility] History of tobacco use Current smoker [facility] History of tobacco use Cigarette Smoker [facility] Start: 07-06-2023 Tobacco use and exposure Smoke less tobacco non-user [facility] Start: 07-06-2023 Alcohol intake Ex-drinker (finding) [facility] Start: 07-06-2023 History of Social function [facility] Within the past 12 months we worried whether our food would run out before we got money to buy more. Never True [facility] History of Present illness Narrative 07-14-2023 BHUPENDRA [...] Medication exposure during first trimester of - [facility] with or without consult; Future I reviewed [...] 3.3, 95% CI = [1.1, 9.6]) [PMID: 42534970]. Also methamphetamine exposure during has been associated with maternal and morbidity and mortality. In studies that controlled for confounders, methamphetamine exposure was associated with a two- to fourfold increase in risk of growth restriction, gestational hypertension, preeclampsia, abruption, , intrauterine demise, , and . [PMIDs: 46598762; 28433586;77994070] A meta-analysis of eight studies that compared outcomes for females using methamphetamines with control individuals also reported younger gestational age at , lower weight, smaller head circumference, shorter body length, and lower scores for exposed infants. The meta-analysis did not find significant differences in the rates of preeclampsia and hypertensive disorders. [PMID 91299359]. Amphetamines, including methamphetamine, are excreted into breast [...] reserve section for routine indications Notified the soap press feeder about medication exposure Plan reviewed with patient. She vocalized understanding all questions answered. The patient is to continue with routine care in your office Thank you for allowing me to participate in her care. Please contact me if you have any concerns. Frandy Zavala MD, FACOG (she/hers) Maternal- Medicine [facility] [address] [place] [address] This document was created with [employer] technology. Though I make every effort to review the dictation as it is transcribed, on occasion the spoken word can be misinterpreted by the technology leading to inappropriate words, phrases, or sentences. This note is addressed to the requesting provider as a consultation for clinical guidance. Specific medical abbreviations are occasionally used and those are generally approved by the [place]?Board of?Obstetrics and?Gynecology?as well as?Kimmie dennison abbreviations. The above plan of care was based solely on the diagnoses for which a consultation was requested. ?More frequent testing may be indicated based on her other medical/obstetrical conditions. The management of other or medical conditions is beyond the scope of requested consultation and will continue to be followed by the primary forensic investigator or primary care provider. Note to patient: [...] yes Have you been seen here at [facility] in a previous ? N/a Recent ER visits or hospitalizations? no Bring blood sugar log or meter with you today? (Please bring them with you for every visit at [facility]) n/a Traveled outside the country in the past 6 month no Any concerns that you would like me to mention to the provider today? no documented in this encounter [employer] [facility] Instructions 07-06-2023 Patient Instructions Note Date & Type Note Facility 07-06-2023 Instructions Frandy Zavala MD - 07/06/2023 10:30 AM EST [email or web address] documented in this encounter [facility] Evaluation note Note Date & Type Note Facility Evaluation note Diagnosis 18 weeks gestation of - Primary Attention deficit hyperactivity disorder (ADHD), unspecified ADHD type Depression affecting Medication exposure during first trimester of Supervision of other high-risk Encounter for anatomic survey documented in this encounter [facility] Evaluation note Note Date & Type Note Facility Evaluation note Diagnosis Second trimester state, incidental documented in this encounter [facility] Healthcare Instructions Note Date & Type Note Facility Instructions Not on filedocumented in this en counter [facility] Reason for Referral Specialty Diagnoses / Procedures Referred By Contac t Referred To Contact [facility]aternal [facility] Medicine Diagnoses Encounter for anatomic survey Procedures [facility] with or without consult Frandy Zavala MD [address], [address] [place] [address] [facility] [address] [place] [address] Referral ID Status Reason Start Date Expiration Date V isits Requested Visits Authorized [id number] Pending Review 07/06/2023 07/05/2024 1 1 Specialty Diagnoses / Procedures Referred By Jermaine t Referred To Contact [facility] Diagnoses Medication exposure during first trimester of Procedures US MFM with or without consult Frandy Zavala MD [address] [place] [address] [facility] [address] [place] [address] Referral ID Status Reason Start Date Expiration Date V isits Requested Visits Authorized [id number] Pending Review 07/06/2023 07/05/2024 1 1 Additional Source Comments Reason for Visit (unrecogniz ed section and content) Reason Comments Med Management Reason Comments Routine Visit Care Teams (unrecognized sec tion and content) Fine Arts Instructor Relationship Specialty Start Date End Date Pablo Lynch MD [address] [place] [address] PCP - General Family Medicine 01/11/23 FOR [...] BE BASED ON THE PRIMARY CLINICAL RECORDS. [employer] provides no warranty or guarantee of the accuracy or completeness of information in this document.
--- NOTE | 2023-10-13 09:12 | US_ITS ---
[address] [address] Patient Name: EMIGDIO AMES MRN: [id number] date: 1995 Sex: F Assigned Patient Location: Current Patient Location: [facility] Accession/Order Number: [id number] Exam Date: 10/13/2023 09:15 Report Date: 10/13/2023 09:37 At the request of: SKYE GOINS Procedure: US OB BPP w non-stress EXAMINATION: US OB BPP w non-stress HISTORY: Adderall use F15.10 COMPARISON: No relevant comparison available. TECHNIQUE: Ultrasound biophysical profile was performed in the radiology department. non-reactive stress testing was performed by nursing staff in the birthing center. FINDINGS: BREATHING MOVEMENTS: 2.0 GROSS BODY MOVEMENTS: 2.0 TONE: 2.0 QUALITATIVE AMNIOTIC FLUID VOLUME: 2.0 PRESENTATION: CEPHALIC HEART RATE: 142.9 bpm H.B./min AMNIOTIC FLUID VOLUME: 12.9 cm cm GESTATIONAL AGE: 32 weeks 3 days CONCLUSION: Total biophysical profile score: 8.0 Electronically authenticated by: ZHEN MATT Date: 10/13/2023 09:37
[2023-10-13 09:30] VITALS: BP 140/98; PULSE 95
[2023-10-13 09:53] VITALS: BP 139/90; PULSE 90
--- NOTE | 2023-10-13 10:13 | US_ITS ---
[address] [address] Patient Name: EMIGDIO AMES MRN: [id number] date: 1995 Sex: F Assigned Patient Location: [facility] Current Patient Location: [facility] Accession/Order Number: [id number] Exam Date: 10/13/2023 11:00 Report Date: 10/13/2023 11:31 At the request of: SKYE GOINS Procedure: US OB growth EXAMINATION: US OB growth HISTORY: ADERRALL USE DISORDER COMPARISON: 05/14/2023 FINDINGS: Heart Rate: Not obtained Amniotic Fluid Volume: 12.5 cm Number: 1.0 Position: Cephalic presentation, longitudinal lie Maximum Vertical Pocket: 5.2 cm cm 0.5 cm cm 3.1 cm cm 3.6 cm cm BIOMETRY: BPD: 8.0 cm cm; 32 weeks 2 days; 39% HC: 30.1 cmcm; 33 weeks 2 days , 36% AC: 28.1 cm cm; 32 weeks 1 days, 40% FL: 5.7 cm cm; 30 weeks 1 days; <3.0 % % EFW: 1808.5 grams, 4 lbs. 0 oz., 18% FL/AC: 20.4 FL/BPD: 71.4 HC/AC: 1.1 GESTATIONAL AGE: Age by EDC: 32 weeks 3 days GANESH by EDC: 12/05/2023 Age by US: 32 weeks 0 days GANESH by US: 12/08/2023 US/US OB growth IMPRESSION: Femur length less than the 3rd percentile, otherwise normal interval growth Electronically authenticated by: ZHEN MATT Date: 10/13/2023 11:31
--- NOTE | 2023-10-13 10:28 | PC.NURSE ---
1000: PLAN OF CARE DISCUSSED AND PATIENT DENIES HEADACHE, EPIGASTRIC PAIN, BLURRED VISION OR SWELLING. pHYSICIAN ORDERS EXPLAINED AND GROWTH FROM OFFICE WILL BE DONE HERE.
[2023-10-13 10:54] LABS: Basophils Percent Auto 0.4 % (0.2-2.0); Eosinophils Absolute Auto 0.1 10^3/uL (0.0-0.7); Eosinophils Percent Auto 0.9 % (0.9-7.0); Immature Granulocytes Abs Auto 0.04 10^3/uL (0.00-0.03); Immature Granulocytes Pct Auto 0.4 % (0.0-0.5); Lymphocytes Absolute Auto 1.5 10^3/uL (1.2-3.8); Lymphocytes Percent Auto 14.6 % (20.5-60.0); Mean Corpuscular HGB Conc 34.2 g/dL (29.9-35.2); Mean Corpuscular Hemoglobin 31.3 pg (26.7-34.0); Mean Corpuscular Volume 91.6 fL (81.0-99.0); Mean Platelet Volume 9.6 fL (9.5-13.5); Monocytes Absolute Auto 0.8 10^3/uL (0.3-0.8); Monocytes Percent Auto 7.5 % (1.7-12.0); Neutrophils Absolute Auto 7.6 10^3/uL (1.4-6.5); Neutrophils Percent Auto 76.2 % (43.0-75.0); Platelet Count 288 10^3/uL (150-450); Red Blood Count 4.15 10^6/uL (4.20-5.40); Red Cell Distribution Width 11.8 % (11.0-15.0)
[2023-10-13 11:07] LABS: Alanine Aminotransferase 20 U/L (14-59); Aspartate Amino Transferase 14 U/L (15-37); Estimated GFR (African America >60 (>=60); Estimated GFR (Non-African Ame >60 (>=60); Uric Acid 4.1 mg/dL (2.6-6.0)
[2023-10-13 11:20] VITALS: BP 152/87; PULSE 82
[2023-10-13] MEDS: BETAMETHASONE ACE/BETAMETHASONE SOD PHOS 30 MG/5 ML 12 MG IM (11:22)
[2023-10-13] MEDS: LABETALOL HCL 100 MG TABLET PO (11:23)
[2023-10-13 11:24] LABS: Partial Thromboplastin Time 28.2 sec (22.3-36.2); Prothrombin Time 9.3 sec (9.0-11.6)
[2023-10-13 11:26] LABS: INR <0.93
[2023-10-13 11:37] LABS: Fibrinogen 449 mg/dL (200-400)
[2023-10-13 12:55] VITALS: BP 133/85; PULSE 75
== END 2023-10-13 12:55 | disposition home or self-care (01) ==
LOC: US 07:04 → FBC 09:13
PROVIDERS: PCP Family Medicine; Visit Provider Obstetrics & Gynecology
DX: F15.10 Other stimulant abuse, uncomplicated (principal); Z3A.32 32 weeks gestation of pregnancy
CPT/HCPCS: 36415; 76816; 76818; 82565; 84450; 84460; 84520; 84550; 85025; 85384; 85610; 85730; 96372; J0702

== ENCOUNTER 2023-10-14 07:16 | Outpatient (OUT) | payer OTHER, SELFPAY ==
--- OUTSIDE RECORDS SUMMARY | 2023-10-14 07:19 | XMS_ITS | CCD ---
Author Organization [facility] Care Team Providers Care Compressor Engineer Name Role Phone Unavailable Primary Care Provider Pablo Hansen MD Primary Care Provider [phone] Medications Current Medications Medication Drug Class(es) Dates [...] UA Negative Negative - 4(70) +++ mg/dL [facility] Blood, UA Negative Negative - 50 Jre/mcL [facility] Clarity, UA Clear [facility], UA Yellow [facility] Glucose, UA Negative Negative - 1999(110) ++++ mg/dL [facility] Interpretation and review of laboratory results Abnormal [facility] Ketones, UA Negative Negative - 160(16) ++++ mg/dL [facility] Leukocytes, UA Positive Negative - 500+++ Aretha/mcL [facility] Nitrite, UA Negative Negative - Positive [facility] pH, UA 6.5 5 - 9 [facility] Protein, UA Negative Negative - 1999(20) ++++ mg/dL [facility] Spec Grav, UA 1.010 1 - 1.03 [facility] Urobilinogen, UA 0.2 0.2 - 12 mg/dL [facility] with or without consu lton 07-06-2023 IMPRESSION: 1. Single intrauterine size consistent with dates. 2. Transvaginal Cervical Length = 3.1 cm. RECOMMENDATIONS: 1. Please see M consultation documentation from today's encounter. 2. Subsequent follow up or other follow up as clinically determined by primary OB provider unless otherwise specified by [facility]. 3. Results forwarded to ordering provider so they can follow up with the patient as necessary. [facility] OBSTETR[facility] REPORT (Signed Final 07/06/2023 11:40) PATIENT INFO: ID #: [id number] : [birth year] (28 yrs)(F) Name: EMIGDIO VAZQUEZ Visit Date: 07/06/2023 10:12 PERFORMED BY: Attending: Frandy Zavala MD Performed By: Dinorah Rivers RDMS Referred By: Juan Weaver. Address: [address] [place] [address] [place] [address] Location: [facility] SERVICE(S) PROVIDED: Comprehensive Anatomic Survey 78248 OB Transvaginal 54502 INDICATIONS: Screening for anatomic survey Z36.89 Screening [...] document Interventr. Septum: Not well visualized Cardiac [place]: Appears normal Diaphragm: Not well visualized 3 Vessel View: Appears normal 3 V Trachea View: Not well visualized IVC: Could not document Crossing: Could not document Abdomen Ventral Wall: Appears normal Cord Insertion: Appears normal Situs: Ap (more content not included)... [facility] Frandy Zavala MD - 07/06/2023 OBSTETRICS REPORT (Signed Final 07/06/2023 11:40) PATIENT INFO: ID #: [id number] : [birth year] (28 yrs)(F) Name: EMIGDIO VAZQUEZ Visit Date: 07/06/2023 10:12 PERFORMED BY: Attending: Frandy Zavala MD Performed By: Dinorah Rivers RDMS Referred By: Juan Palafox DO Ref. Address: [address] [place] [address] [place] [address] Location: [facility] SERVICE(S) PROVIDED: Comprehensive Anatomic Survey 54911 OB Transvaginal 88757 INDICATIONS: Screening for anatomic survey Z36.89 Screening [...] document Interventr. Septum: Not well visualized Cardiac [place]: Appears normal Diaphragm: Not well visualized 3 [...] diagnostic for feta (more content not included)... [facility] Radiology Study observation (narrative) [facility] Unlisted Genetic Teston 05-01 SEE SCANNED REPORT MANUAL LY TRANSCRIBED RESULTS [facility] HIV 1&2 AB/AG Screen (P24 AG )on 05-18-2023 HIV 1&2 AB/AG Non-Reactive [facility] Hepatitis B surface antigeno n 05-18-2023 Hepatitis B Surface Antigen Negative [facility] No Panel Informationon 05-18 [facility] Rubella IGG immune statuson 05-18-2023 Rubella immune IgG immune [facility] Syphilis Total(Unknown Syphi lis Status)on 05-18-2023 Syphilis Non-Reactive [facility] TSHon 05-14-2023 Thyroid Stimulating (3Rd Generation) Hormone/ Tsh 1.303 [facility] Ultrasound officeon 05-14-20 SEE SCANNED REPORT MANUAL LY TRANSCRIBED RESULTS [facility] Radiology Study observation (narrative) [facility] Vital Signs Date Time Vital Sign Value Performing Clinician Faci lity 07-14-2023 09:45-0500 Body weight 64.77 kg Geovanna HUIZAR Work Phone: [facility] 07-14-2023 09:45-0500 Diastolic blood pressure 70 mm[Hg] Geovanna HUIZAR Work Phone: [facility] 07-14-2023 09:45-0500 Systolic blood pressure 112 mm[Hg] Geovanna HUIZAR Work Phone: [facility] 07-06-2023 10:17-0500 Body height 162.6 cm Frandy Zavala MD Work Phone: [facility] 07-06-2023 10:17-0500 Body mass index (BMI) [Ratio] 24.2 kg/m2 Frandy Zavala MD Work Phone: [facility] 07-06-2023 10:17-0500 Body weight 63.96 kg Frandy Zavala MD Work Phone: [facility] 07-06-2023 10:17-0500 Diastolic blood pressure 82 mm[Hg] Frandy Zavala MD Work Phone: [facility] 07-06-2023 10:17-0500 Heart rate 88 /min Frandy Zavala MD Work Phone: [facility] 07-06-2023 10:17-0500 Systolic blood pressure 127 mm[Hg] Frandy Zavala MD Work Phone: [facility] Encounters Encounter Date Encounter Type Care Provider Facility Start: 07-14-2023 End: 07-14-2023 flow sheet Geovanna HUIZAR Work Phone: [facility] Comment on above: Second trimester pre gnancy Start: 07-06-2023 End: 07-06-2023 Office consultation new/estab patient 60 min Frandy Zavala MD Work Phone: [facility] Comment on above: 18 weeks gestation o f (Primary Dx); Attention deficit hyperactivity disorder (ADHD), unspecified ADHD type; Depression affecting ; Medication exposure during first trimester of ; Encounter for anatomic survey Start: 06-18-2023 Chart abstracting Frandy chilel MD Work Phone: [facility] Procedures Date Procedure Procedure Detail Performing Clinician [...] Adult BMI Screening Adult BMI Screen ing [facility] Start: 07-06-2024 Tobacco Screening Tobacco Screening [facility] Start: 07-06-2024 End: 07-06-2024 [facility] with or without consult [facility] with or without consult Imaging Routine Encounter for anatomic survey Expected: 07/06/2024 (Approximate), Expires: 07/06/2024 [facility] Work Phone: Comment on above: Expected: 07/06/2024 (Approximate), Expires: 07/06/2024 Start: 08-12-2023 End: 08-12-2023 Patient encounter procedure 08/12/2023 2:15 PM EDT Appointment [facility] [address] [place] [address] [facility] Start: 08-11-2023 End: 08-11-2023 Patient encounter procedure 08/11/2023 1:50 PM EDT Routine [facility] [address] [place] [address] Juan Palafox, [address] [place] [address] [facility] Start: 07-06-2023 End: 07-06-2023 Patient encounter procedure 07/06/2023 10:30 AM EST Office Visit [facility] [address] [place] [address] Frandy Zavala MD [address] [facility], [address] [place] [address] [facility] Start: 07-06-2023 End: 07-06-2023 Patient encounter procedure 07/06/2023 9:15 AM EST Appointment [facility] [address] [place] [address] [facility] Start: 01-29-2023 COVID-19 Vaccine ( season) COVID-19 Vaccine ( season) [facility] Start: 01-29-2023 Influenza vaccination Influenza Vacc ine [facility] Start: 01-03-2017 DTaP,Tdap and Td Vaccines (7 - Td or Tdap) DTaP,Tdap and Td Vaccines (7 - Td or Tdap) [facility] Start: 2015 Screening for malign ant neoplasm of cervix Pap Smear [facility] Start: 2013 DTaP,Tdap and Td Vaccines (1 - Tdap) DTaP,Tdap and Td Vaccines (1 - Tdap) [facility] Start: 02-05-2012 Adult BMI Screening Adult BMI Screen ing [facility] Start: 2006 Depression Screening Depression Scre ening [facility] Start: 2006 Tobacco Screening Tobacco Screening [facility] Payers Date Payer Category Payer Unknown [id number] Social History Date Type Detail Facility Start: 06-18-2023 Tobacco smoking stat [facility] Tobacco smoking consumption unknown [facility] Start: 03-11-2023 [facility] Start: 1995 Sex Assigned At Female [facility] Start: 12-03-2022 Gender identity Identifies as female gender (finding) [facility] Start: 07-06-2023 Sexual orientation Not on file [facility] Start: 07-06-2023 Tobacco smoking stat [facility] Ex-smoker [facility] History of tobacco use Current smoker [facility] History of tobacco use Cigarette Smoker [facility] Start: 07-06-2023 Tobacco use and exposure Smoke less tobacco non-user [facility] Start: 07-06-2023 Alcohol intake Ex-drinker (finding) [facility] Start: 07-06-2023 History of Social function [facility] Within the past 12 months we worried whether our food would run out before we got money to buy more. Never True [facility] History of Present illness Narrative 07-14-2023 [...] Medication exposure during first trimester of - [facility] with or without consult; Future I reviewed [...] 3.3, 95% CI = [1.1, 9.6]) [PMID: 20504377]. Also methamphetamine exposure during has been associated with maternal and morbidity and mortality. In studies that controlled for confounders, methamphetamine exposure was associated with a two- to fourfold increase in risk of growth restriction, gestational hypertension, preeclampsia, abruption, , intrauterine demise, , and . [PMIDs: 64503833; 33050682;13274658] A meta-analysis of eight studies that compared outcomes for females using methamphetamines with control individuals also reported younger gestational age at , lower weight, smaller head circumference, shorter body length, and lower scores for exposed infants. The meta-analysis did not find significant differences in the rates of preeclampsia and hypertensive disorders. [PMID 96623152]. Amphetamines, including methamphetamine, are excreted into breast [...] reserve section for routine indications Notified the peoplesoft fscm developer about medication exposure Plan reviewed with patient. She vocalized understanding all questions answered. The patient is to continue with routine care in your office Thank you for allowing me to participate in her care. Please contact me if you have any concerns. Frandy Zavala MD, FACOG (she/hers) [facility] [address] [place] [address] This document was created with [employer] technology. Though I make every effort to review the dictation as it is transcribed, on occasion the spoken word can be misinterpreted by the technology leading to inappropriate words, phrases, or sentences. This note is addressed to the requesting provider as a consultation for clinical guidance. Specific medical abbreviations are occasionally used and those are generally approved by the [place]?Board of?Obstetrics and?Gynecology?as well as?Kimmie dennison abbreviations. The above plan of care was based solely on the diagnoses for which a consultation was requested. ?More frequent testing may be indicated based on her other medical/obstetrical conditions. The management of other or medical conditions is beyond the scope of requested consultation and will continue to be followed by the primary continuing education instructor or primary care provider. Note to patient: [...] yes Have you been seen here at [facility] in a previous ? N/a Recent ER visits or hospitalizations? no Bring blood sugar log or meter with you today? (Please bring them with you for every visit at [facility]) n/a Traveled outside the country in the past 6 month no Any concerns that you would like me to mention to the provider today? no documented in this encounter [employer] Instructions 07-06-2023 Patient Instructions Note Date & Type Note Facility 07-06-2023 Instructions Frandy Zavala MD - 07/06/2023 10:30 AM EST [email or web address] documented in this encounter [facility] Evaluation note Note Date & Type Note Facility Evaluation note Diagnosis 18 weeks gestation of - Primary Attention deficit hyperactivity disorder (ADHD), unspecified ADHD type Depression affecting Medication exposure during first trimester of Supervision of other high-risk Encounter for anatomic survey documented in this encounter [facility] Evaluation note Note Date & Type Note Facility Evaluation note Diagnosis Second trimester state, incidental documented in this encounter [facility] Healthcare Instructions Note Date & Type Note Facility Instructions Not on filedocumented in this en counter [facility] Reason for Referral Specialty Diagnoses / Procedures Referred By Contac t Referred To Contact Maternal and Medicine Diagnoses Encounter for anatomic survey Procedures [facility] with or without consult Frandy Zavala MD [address], [address] [place] [address] [facility] [address] [place] [address] Referral ID Status Reason Start Date Expiration Date V isits Requested Visits Authorized [id number] Pending Review 07/06/2023 07/05/2024 1 1 Specialty Diagnoses / Procedures Referred By Jermaine t Referred To Contact [facility] Diagnoses Medication exposure during first trimester of Procedures [facility] with or without consult Frandy Zavala MD [address] [place] [address] [facility] [address] [place] [address] Referral ID Status Reason Start Date Expiration Date V isits Requested Visits Authorized [id number] Pending Review 07/06/2023 07/05/2024 1 1 Additional Source Comments Reason for Visit (unrecogniz ed section and content) Reason Comments Med Management Reason Comments Routine Visit Care Teams (unrecognized sec tion and content) Compressor Engineer Relationship Specialty Start Date End Date Pablo Lynch MD [address] [place] [address] PCP - General Family Medicine 01/11/23 FOR [...] BE BASED ON THE PRIMARY CLINICAL RECORDS. [employer] provides no warranty or guarantee of the accuracy or completeness of information in this document.
[2023-10-14 11:16] VITALS: BP 134/81; PULSE 90
[2023-10-14] MEDS: BETAMETHASONE ACE/BETAMETHASONE SOD PHOS 30 MG/5 ML 12 MG IM (11:17)
== END 2023-10-14 11:38 | disposition home or self-care (01) ==
LOC: US 07:17 → FBC 10:59
PROVIDERS: PCP Family Medicine; Visit Provider Obstetrics & Gynecology
DX: F15.10 Other stimulant abuse, uncomplicated (principal)
CPT/HCPCS: J0702

== ENCOUNTER 2023-10-20 07:00 | Outpatient (OUT) | payer OTHER, SELFPAY ==
--- OUTSIDE RECORDS SUMMARY | 2023-10-20 07:23 | XMS_ITS | CCD ---
Author Organization [facility] Inform ion Partnership [facility] Care Team Providers Care Recorder Helper Seismograph Name Role Phone Unavailable Primary Care Provider [...] UA Negative Negative - 4(70) +++ mg/dL [facility] Blood, UA Negative Negative - 50 Jer/mcL [facility] Clarity, UA Clear [facility] Color, UA Yellow [facility] Glucose, UA Negative Negative - 1999(110) ++++ mg/dL [facility] Interpretation and review of laboratory results Abnormal [facility] Ketones, UA Negative Negative - 160(16) ++++ mg/dL [facility] Leukocytes, UA Positive Negative - 500+++ Aretha/mcL [facility] Nitrite, UA Negative Negative - Positive [facility] pH, UA 6.5 5 - 9 [facility] Protein, UA Negative Negative - 1999(20) ++++ mg/dL [facility] Spec Grav, UA 1.010 1 - 1.03 [facility] Urobilinogen, UA 0.2 0.2 - 12 mg/dL [facility] with or without consu lton 07-06-2023 IMPRESSION: 1. Single intrauterine size consistent with dates. 2. Transvaginal Cervical Length = 3.1 cm. RECOMMENDATIONS: 1. Please see M consultation documentation from today's encounter. 2. Subsequent follow up or other follow up as clinically determined by primary OB provider unless otherwise specified by M. 3. Results forwarded to ordering provider so they can follow up with the patient as necessary. [facility] OBSTETR[facility] REPORT (Signed Final 07/06/2023 11:40) PATIENT INFO: ID #: [id number] : [birth year] (28 yrs)(F) Name: EMIGDIO VAZQUEZ Visit Date: 07/06/2023 10:12 PERFORMED BY: Attending: Frandy Zavala MD Performed By: Dinorah Rivers RDMS Referred By: Juan Weaver. Address: [address] [place] [address] [place] [address] Location: [facility] SERVICE(S) PROVIDED: Comprehensive Anatomic Survey 00994 OB Transvaginal 91083 INDICATIONS: Screening for anatomic survey Z36.89 Screening [...] document Interventr. Septum: Not well visualized Cardiac [place]: Appears normal Diaphragm: Not well visualized 3 Vessel View: Appears normal 3 V Trachea View: Not well visualized IVC: Could not document Crossing: Could not document Abdomen Ventral Wall: Appears normal Cord Insertion: Appears normal Situs: Ap (more content not included)... [facility] Frandy Zavala MD - 07/06/2023 OBSTETRICS REPORT (Signed Final 07/06/2023 11:40) PATIENT INFO: ID #: [id number] : [birth year] (28 yrs)(F) Name: EMIGDIO VAZQUEZ Visit Date: 07/06/2023 10:12 PERFORMED BY: Attending: Frandy Zavala MD Performed By: Dinorah Rivers RDMS Referred By: Juan Palafox DO Ref. Address: [address] [place] [address] [place] [address] Location: [facility] SERVICE(S) PROVIDED: Comprehensive Anatomic Survey 59159 OB Transvaginal 87852 INDICATIONS: Screening for anatomic survey Z36.89 Screening [...] document Interventr. Septum: Not well visualized Cardiac [place]: Appears normal Diaphragm: Not well visualized 3 [...] diagnostic for feta (more content not included)... [facility] Radiology Study observation (narrative) [facility] Unlisted Genetic Teston 05-01 SEE SCANNED REPORT MANUAL LY TRANSCRIBED RESULTS [facility] HIV 1&2 AB/AG Screen (P24 AG )on 05-18-2023 HIV 1&2 AB/AG Non-Reactive [facility] Hepatitis B surface antigeno n 05-18-2023 Hepatitis B Surface Antigen Negative [facility] No Panel Informationon 05-18 [facility] Rubella IGG immune statuson 05-18-2023 Rubella immune IgG immune [facility] Syphilis Total(Unknown Syphi lis Status)on 05-18-2023 Syphilis Non-Reactive [facility] TSHon 05-14-2023 Thyroid Stimulating (3Rd Generation) Hormone/ Tsh 1.303 [facility] Ultrasound officeon 05-14-20 23 SEE SCANNED REPORT MANUAL LY TRANSCRIBED RESULTS [facility] Radiology Study observation (narrative) [facility] Vital Signs Date Time Vital Sign Value Performing Clinician Faci lity 07-14-2023 09:45-0500 Body weight 64.77 kg Geovanna HUIZAR Work Phone: [facility] 07-14-2023 09:45-0500 Diastolic blood pressure 70 mm[Hg] Geovanna HUIZAR Work Phone: [facility] 07-14-2023 09:45-0500 Systolic blood pressure 112 mm[Hg] Geovanna HUIZAR Work Phone: [facility] 07-06-2023 10:17-0500 Body height 162.6 cm Frandy Zavala MD Work Phone: [facility] 07-06-2023 10:17-0500 Body mass index (BMI) [Ratio] 24.2 kg/m2 Frandy Zavala MD Work Phone: [facility] 07-06-2023 10:17-0500 Body weight 63.96 kg Frandy Zavala MD Work Phone: [facility] 07-06-2023 10:17-0500 Diastolic blood pressure 82 mm[Hg] Frandy Zavala MD Work Phone: [facility] 07-06-2023 10:17-0500 Heart rate 88 /min Frandy Zavala MD Work Phone: [facility] 07-06-2023 10:17-0500 Systolic blood pressure 127 mm[Hg] Frandy Zavala MD Work Phone: [facility] Encounters Encounter Date Encounter Type Care Provider Facility Start: 07-14-2023 End: 07-14-2023 flow sheet Geovanna HUIZAR Work Phone: [facility] Comment on above: Second trimester pre gnancy Start: 07-06-2023 End: 07-06-2023 Office consultation new/estab patient 60 min Frandy Zavala MD Work Phone: [facility] Comment on above: 18 weeks gestation o f (Primary Dx); Attention deficit hyperactivity disorder (ADHD), unspecified ADHD type; Depression affecting ; Medication exposure during first trimester of ; Encounter for anatomic survey Start: 06-18-2023 Chart abstracting Frandy chilel MD Work Phone: [facility] Procedures Date Procedure Procedure Detail Performing Clinician [...] Adult BMI Screening Adult BMI Screen ing [facility] Start: 07-06-2024 Tobacco Screening Tobacco Screening [facility] Start: 07-06-2024 End: 07-06-2024 US MFM with or without consult US MFM with or without consult Imaging Routine Encounter for anatomic survey Expected: 07/06/2024 (Approximate), Expires: 07/06/2024 [facility] Work Phone: Comment on above: Expected: 07/06/2024 (Approximate), Expires: 07/06/2024 Start: 08-12-2023 End: 08-12-2023 Patient encounter procedure 08/12/2023 2:15 PM EDT Appointment [facility] [address] [place] [address] [facility] Start: 08-11-2023 End: 08-11-2023 Patient encounter procedure 08/11/2023 1:50 PM EDT Routine [facility] [address] [place] [address] Juan Palafox, [address] [place] [address] [facility] Start: 07-06-2023 End: 07-06-2023 Patient encounter procedure 07/06/2023 10:30 AM EST Office Visit [facility] [address] [address] Frandy Zavala MD [address] [address] [facility] Start: 07-06-2023 End: 07-06-2023 Patient encounter procedure 07/06/2023 9:15 AM EST Appointment [facility] [address] [place] [address] [facility] Start: 01-29-2023 COVID-19 Vaccine ( season) COVID-19 Vaccine ( season) [facility] Start: 01-29-2023 Influenza vaccination Influenza Vacc ine [facility] Start: 01-03-2017 DTaP,Tdap and Td Vaccines (7 - Td or Tdap) DTaP,Tdap and Td Vaccines (7 - Td or Tdap) [facility] Start: 2015 Screening for malign ant neoplasm of cervix Pap Smear [facility] Start: 2013 DTaP,Tdap and Td Vaccines (1 - Tdap) DTaP,Tdap and Td Vaccines (1 - Tdap) [facility] Start: 02-05-2012 Adult BMI Screening Adult BMI Screen ing [facility] Start: 2006 Depression Screening Depression Scre ening [facility] Start: 2006 Tobacco Screening Tobacco Screening [facility] Payers Date Payer Category Payer Unknown [id number] Social History Date Type Detail Facility Start: 06-18-2023 Tobacco smoking stat [facility] Tobacco smoking consumption unknown [facility] Start: 03-11-2023 [facility] Start: 1995 Sex Assigned At Female P [facility] Start: 12-03-2022 Gender identity Identifies as female gender (finding) [facility] Start: 07-06-2023 Sexual orientation Not on file [facility] Start: 07-06-2023 Tobacco smoking stat [facility] Ex-smoker [facility] History of tobacco use Current smoker [facility] History of tobacco use Cigarette Smoker P [facility] Start: 07-06-2023 Tobacco use and exposure Smoke less tobacco non-user [facility] Start: 07-06-2023 Alcohol intake Ex-drinker (finding) [facility] Start: 07-06-2023 History of Social function [facility] Within the past 12 months we worried whether our food would run out before we got money to buy more. Never True [facility] History of Present illness Narrative 07-14-2023 [...] Facility 07-06-2023 History of Present illness Narrative [facility] Consult Note Reason For Consult: [...] Medication exposure during first trimester of - [facility] with or without consult; Future I [...] 3.3, 95% CI = [1.1, 9.6]) [PMID: 62839258]. Also methamphetamine exposure during has been associated with maternal and morbidity and mortality. In studies that controlled for confounders, methamphetamine exposure was associated with a two- to fourfold increase in risk of growth restriction, gestational hypertension, preeclampsia, abruption, , intrauterine demise, , and infant . [PMIDs: 87730440; 17278092;44595906] A meta-analysis of eight studies that compared outcomes for females using methamphetamines with control individuals also reported younger gestational age at , lower weight, smaller head circumference, shorter body length, and lower scores for exposed infants. The meta-analysis did not find significant differences in the rates of preeclampsia and hypertensive disorders. [PMID 15424484]. Amphetamines, including methamphetamine, are excreted into breast [...] reserve section for routine indications Notified the cloth shrinking supervisor about medication exposure Plan reviewed with patient. She vocalized understanding all questions answered. The patient is to continue with routine care in your office Thank you for allowing me to participate in her care. Please contact me if you have any concerns. Frandy Zavala MD, FACOG (she/hers) Maternal- Medicine [facility] [address] [facility] 1st [place] [address] This document was created with [employer] technology. Though I make every effort to review the dictation as it is transcribed, on occasion the spoken word can be misinterpreted by the technology leading to inappropriate words, phrases, or sentences. This note is addressed to the requesting provider as a consultation for clinical guidance. Specific medical abbreviations are occasionally used and those are generally approved by the [place]?Board of?Obstetrics and?Gynecology?as well as?Kimmie dennison abbreviations. The above plan of care was based solely on the diagnoses for which a consultation was requested. ?More frequent testing may be indicated based on her other medical/obstetrical conditions. The management of other or medical conditions is beyond the scope of requested consultation and will continue to be followed by the primary mannequin molder or primary care provider. Note to patient: [...] yes Have you been seen here at [facility] in a previous ? N/a Recent ER visits or hospitalizations? no Bring blood sugar log or meter with you today? (Please bring them with you for every visit at [facility]) n/a Traveled outside the country in the past 6 month no Any concerns that you would like me to mention to the provider today? no documented in this encounter [facility] Instructions 07-06-2023 Patient Instructions Note Date & Type Note Facility 07-06-2023 Instructions Frandy Zavala MD - 07/06/2023 10:30 AM EST [email or web address] documented in this encounter [facility] Evaluation note Note Date & Type Note Facility Evaluation note Diagnosis 18 weeks gestation of - Primary Attention deficit hyperactivity disorder (ADHD), unspecified ADHD type Depression affecting Medication exposure during first trimester of Supervision of other high-risk Encounter for anatomic survey documented in this encounter [facility] Evaluation note Note Date & Type Note Facility Evaluation note Diagnosis Second trimester state, incidental documented in this encounter [facility] Instructions Note Date & Type Note Facility Instructions Not on filedocumented in this en [facility] Reason for Referral Specialty Diagnoses / Procedures Referred By Contac t Referred To Contact [facility]aternal [facility] Medicine Diagnoses Encounter for anatomic survey Procedures US MFM with or without consult Frandy Zavala MD [address], [address] [place] [address] [facility] [address] [place] [address] Referral ID Status Reason Start Date Expiration Date V isits Requested Visits Authorized [id number] Pending Review 07/06/2023 07/05/2024 1 1 Specialty Diagnoses / Procedures Referred By Contac t Referred To Contact [facility] Diagnoses Medication exposure during first trimester of Procedures US MFM with or without consult Frandy Zavala MD [address] [place] [address] [facility] [address] [place] [address] Referral ID Status Reason Start Date Expiration Date V isits Requested Visits Authorized [id number] Pending Review 07/06/2023 07/05/2024 1 1 Additional Source Comments Reason for Visit (unrecogniz ed section and content) Reason Comments Med Management Reason Comments Routine Visit Care Teams (unrecognized sec tion and content) Recorder Helper Seismograph Relationship Specialty Start Date End Date Pablo Lynch MD [address] [place], [place] [id number] PCP - General Family Medicine 01/11/23 FOR [...] BE BASED ON THE PRIMARY CLINICAL RECORDS. [facility]. provides no warranty or guarantee of the accuracy or completeness of information in this document.
--- NOTE | 2023-10-20 09:11 | US_ITS ---
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 TECHNIQUE: Ultrasound biophysical profile was performed in the radiology department. non-reactive stress testing was performed by nursing staff in the birthing center. FINDINGS: BREATHING MOVEMENTS: 2 GROSS BODY MOVEMENTS: 2 TONE: 2 QUALITATIVE AMNIOTIC FLUID VOLUME: 2 PRESENTATION: CEPHALIC HEART RATE: 147.5 bpm H.B./min AMNIOTIC FLUID VOLUME: 9.9 cm cm GESTATIONAL AGE: 33 weeks 3 days CONCLUSION: Total biophysical profile score: 8/8 Electronically authenticated by: ZHEN MATT Date: 10/21/2023 08:01
[2023-10-20 09:42] VITALS: BP 129/88; PULSE 83
== END 2023-10-20 10:15 | disposition home or self-care (01) ==
LOC: US 07:21 → FBC 09:11
PROVIDERS: PCP Family Medicine; Visit Provider Obstetrics & Gynecology
DX: F15.10 Other stimulant abuse, uncomplicated (principal); Z3A.33 33 weeks gestation of pregnancy
CPT/HCPCS: 76818

== ENCOUNTER 2023-10-27 07:10 | Outpatient (OUT) | payer OTHER, SELFPAY ==
--- OUTSIDE RECORDS SUMMARY | 2023-10-27 07:41 | XMS_ITS | CCD ---
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 Unavailable Primary Care Provider [...] UA Negative Negative - 4(70) +++ mg/dL [facility] Blood, UA Negative Negative - 50 Jer/mcL [facility] Clarity, UA Clear [facility] Color, UA Yellow [facility] Glucose, UA Negative Negative - 1999(110) ++++ mg/dL [facility] Interpretation and review of laboratory results Abnormal [facility] Ketones, UA Negative Negative - 160(16) ++++ mg/dL [facility] Leukocytes, UA Positive Negative - 500+++ Aretha/mcL [facility] Nitrite, UA Negative Negative - Positive [facility] pH, UA 6.5 5 - 9 [facility] Protein, UA Negative Negative - 1999(20) ++++ mg/dL [facility] Spec Grav, UA 1.010 1 - 1.03 [facility] Urobilinogen, UA 0.2 0.2 - 12 mg/dL [facility] with or without consu lton 07-06-2023 [...] Final 07/06/2023 11:40) PATIENT INFO: ID #: [id number] : [birth year] (28 yrs)(F) Name: EMIGDIO VAZQUEZ Visit Date: 07/06/2023 10:12 PERFORMED BY: Attending: Frandy Zavala MD Performed By: Dinorah Rivers RDMS Referred By: Juan Weaver. Address: [address] [place] [address] [place] [address] Location: [facility] SERVICE(S) PROVIDED: Comprehensive Anatomic Survey 47618 OB Transvaginal 57096 INDICATIONS: Screening for anatomic survey Z36.89 Screening [...] document Interventr. Septum: Not well visualized Cardiac Rosebud: Appears normal Diaphragm: Not well visualized 3 Vessel View: Appears normal 3 V Trachea View: Not well visualized IVC: Could not document Crossing: Could not document Abdomen Ventral Wall: Appears normal Cord Insertion: Appears normal Situs: Ap (more content not included)... SECTRAPACS Frandy Zavala MD - 07/06/2023 OBSTETRICS REPORT (Signed Final 07/06/2023 11:40) PATIENT INFO: ID #: [id number] : [birth year] (28 yrs)(F) Name: EMIGDIO VAZQUEZ Visit Date: 07/06/2023 10:12 PERFORMED BY: Attending: Frandy Zavala MD Performed By: Dinorah Rivers RDMS Referred By: Juan Palafox DO Ref. Address: [address] [place] [address] [place] [address] Location: [facility] SERVICE(S) PROVIDED: Comprehensive Anatomic Survey 39567 OB Transvaginal 93066 INDICATIONS: Screening for anatomic survey Z36.89 Screening [...] document Interventr. Septum: Not well visualized Cardiac Rosebud: Appears normal Diaphragm: Not well visualized 3 [...] diagnostic for feta (more content not included)... [facility] Radiology Study observation (narrative) [facility] Unlisted Genetic Teston 05-01 SEE SCANNED REPORT MANUAL LY TRANSCRIBED RESULTS [facility] HIV 1&2 AB/AG Screen (P24 AG )on 05-18-2023 HIV 1&2 AB/AG Non-Reactive [facility] Hepatitis B surface antigeno n 05-18-2023 Hepatitis B Surface Antigen Negative [facility] No Panel Informationon 05-18 [facility] Rubella IGG immune statuson 05-18-2023 Rubella immune IgG immune [facility] Syphilis Total(Unknown Syphi lis Status)on 05-18-2023 Syphilis Non-Reactive [facility] TSHon 05-14-2023 Thyroid Stimulating (3Rd Generation) Hormone/ Tsh 1.303 [facility] Ultrasound officeon 05-14-20 23 SEE SCANNED REPORT MANUAL LY TRANSCRIBED RESULTS [facility] Radiology Study observation (narrative) [facility] Vital Signs Date Time Vital Sign Value Performing Clinician Faci lity 07-14-2023 09:45-0500 Body weight 64.77 kg Geovanna HUIZAR Work Phone: [facility] 07-14-2023 09:45-0500 Diastolic blood pressure 70 mm[Hg] Geovanna HUIZAR Work Phone: [facility] 07-14-2023 09:45-0500 Systolic blood pressure 112 mm[Hg] Geovanna HUIZAR Work Phone: [facility] 07-06-2023 10:17-0500 Body height 162.6 cm Farndy Zavala MD Work Phone: [facility] 07-06-2023 10:17-0500 Body mass index (BMI) [Ratio] 24.2 kg/m2 Frandy Zavala MD Work Phone: [facility] 07-06-2023 10:17-0500 Body weight 63.96 kg Frandy Zavala MD Work Phone: [facility] 07-06-2023 10:17-0500 Diastolic blood pressure 82 mm[Hg] Frandy Zavala MD Work Phone: [facility] 07-06-2023 10:17-0500 Heart rate 88 /min Frandy Zavala MD Work Phone: [facility] 07-06-2023 10:17-0500 Systolic blood pressure 127 mm[Hg] Frandy Zavala MD Work Phone: [facility] Encounters Encounter Date Encounter Type Care Provider Facility Start: 07-14-2023 End: 07-14-2023 flow sheet Geovanna HUIZAR Work Phone: [facility] Comment on above: Second trimester pre gnancy Start: 07-06-2023 End: 07-06-2023 Office consultation new/estab patient 60 min Frandy Zavala MD Work Phone: [facility] Comment on above: 18 weeks gestation o f (Primary Dx); Attention deficit hyperactivity disorder (ADHD), unspecified ADHD type; Depression affecting ; Medication exposure during first trimester of ; Encounter for anatomic survey Start: 06-18-2023 Chart abstracting Frandy chilel MD Work Phone: [facility] Procedures Date Procedure Procedure Detail Performing Clinician [...] Adult BMI Screening Adult BMI Screen ing [facility] Start: 07-06-2024 Tobacco Screening Tobacco Screening [facility] Start: 07-06-2024 End: 07-06-2024 US MFM with or without consult US MFM with or without consult Imaging Routine Encounter for anatomic survey Expected: 07/06/2024 (Approximate), Expires: 07/06/2024 [facility] Work Phone: Comment on above: Expected: 07/06/2024 (Approximate), Expires: 07/06/2024 Start: 08-12-2023 End: 08-12-2023 Patient encounter procedure 08/12/2023 2:15 PM EDT Appointment [facility] [address] [place] [address] [facility] Start: 08-11-2023 End: 08-11-2023 Patient encounter procedure 08/11/2023 1:50 PM EDT Routine [facility] [address] [place] [address] Juan Palafox, [address] [place] [address] [facility] Start: 07-06-2023 End: 07-06-2023 Patient encounter procedure 07/06/2023 10:30 AM EST Office Visit [facility] [address] [place] [address] Frandy Zavala MD [address] [address] [facility] Start: 07-06-2023 End: 07-06-2023 Patient encounter procedure 07/06/2023 9:15 AM EST Appointment [facility] [address] [place] [address] [facility] Start: 01-29-2023 COVID-19 Vaccine ( season) COVID-19 Vaccine ( season) [facility] Start: 01-29-2023 Influenza vaccination Influenza Vacc ine [facility] Start: 01-03-2017 DTaP,Tdap and Td Vaccines (7 - Td or Tdap) DTaP,Tdap and Td Vaccines (7 - Td or Tdap) [facility] Start: 2015 Screening for malign ant neoplasm of cervix Pap Smear [facility] Start: 2013 DTaP,Tdap and Td Vaccines (1 - Tdap) DTaP,Tdap and Td Vaccines (1 - Tdap) [facility] Start: 02-05-2012 Adult BMI Screening Adult BMI Screen ing [facility] Start: 2006 Depression Screening Depression Scre ening [facility] Start: 2006 Tobacco Screening Tobacco Screening [facility] Payers Date Payer Category Payer Unknown [id number] Social History Date Type Detail Facility Start: 06-18-2023 Tobacco smoking stat [facility] Tobacco smoking consumption unknown [facility] Start: 03-11-2023 [facility] Start: 1995 Sex Assigned At Female [facility] Start: 12-03-2022 Gender identity Identifies as female gender (finding) [facility] Start: 07-06-2023 Sexual orientation Not on file [facility] Start: 07-06-2023 Tobacco smoking stat [facility] Ex-smoker [facility] History of tobacco use Current smoker [facility] History of tobacco use Cigarette Smoker [facility] Start: 07-06-2023 Tobacco use and exposure Smoke less tobacco non-user [facility] Start: 07-06-2023 Alcohol intake Ex-drinker (finding) [facility] Start: 07-06-2023 History of Social function [facility] Within the past 12 months we worried whether our food would run out before we got money to buy more. Never True [facility] History of Present illness Narrative 07-14-2023 BHUPENDRA [...] Medication exposure during first trimester of - [facility] with or without consult; Future [...] 3.3, 95% CI = [1.1, 9.6]) [PMID: 02130057]. Also methamphetamine exposure during has been associated with maternal and morbidity and mortality. In studies that controlled for confounders, methamphetamine exposure was associated with a two- to fourfold increase in risk of growth restriction, gestational hypertension, preeclampsia, abruption, , intrauterine demise, , and infant . [PMIDs: 99442211; 86303496;53240044] A meta-analysis of eight studies that compared outcomes for females using methamphetamines with control individuals also reported younger gestational age at , lower weight, smaller head circumference, shorter body length, and lower scores for exposed infants. The meta-analysis did not find significant differences in the rates of preeclampsia and hypertensive disorders. [PMID 37909418]. Amphetamines, including methamphetamine, are excreted into breast [...] reserve section for routine indications Notified the twist maker about medication exposure Plan reviewed with patient. She vocalized understanding all questions answered. The patient is to continue with routine care in your office Thank you for allowing me to participate in her care. Please contact me if you have any concerns. Frandy Zavala MD, FACOG (she/hers) M[facility] [address] [facility] [address] [place] [address] This document was created with panpan technology. Though I make every effort to review the dictation as it is transcribed, on occasion the spoken word can be misinterpreted by the technology leading to inappropriate words, phrases, or sentences. This note is addressed to the requesting provider as a consultation for clinical guidance. Specific medical abbreviations are occasionally used and those are generally approved by the [place]?Board of?Obstetrics and?Gynecology?as well as?Kimmie dennison abbreviations. The above plan of care was based solely on the diagnoses for which a consultation was requested. ?More frequent testing may be indicated based on her other medical/obstetrical conditions. The management of other or medical conditions is beyond the scope of requested consultation and will continue to be followed by the primary county coroner or primary care provider. Note to patient: [...] yes Have you been seen here at [facility] in a previous ? N/a Recent ER visits or hospitalizations? no Bring blood sugar log or meter with you today? (Please bring them with you for every visit at [facility]) n/a Traveled outside the country in the past 6 month no Any concerns that you would like me to mention to the provider today? no documented in this encounter [facility] Instructions 07-06-2023 Patient Instructions Note Date & Type Note Facility 07-06-2023 Instructions Frandy Zavala MD - 07/06/2023 10:30 AM EST [email or web address] documented in this encounter [facility] Evaluation note Note Date & Type Note Facility Evaluation note Diagnosis 18 weeks gestation of - Primary Attention deficit hyperactivity disorder (ADHD), unspecified ADHD type Depression affecting Medication exposure during first trimester of Supervision of other high-risk Encounter for anatomic survey documented in this encounter [facility] Evaluation note Note Date & Type Note Facility Evaluation note Diagnosis Second trimester state, incidental documented in this encounter [facility] Instructions Note Date & Type Note Facility Instructions Not on filedocumented in this en counter [facility] Reason for Referral Specialty Diagnoses / Procedures Referred By Contac t Referred To Contact [facility] Diagnoses Encounter for anatomic survey Procedures US MFM with or without consult Frandy Zavala MD [address], [address] [place] [address] [facility] [address] [place] [address] Referral ID Status Reason Start Date Expiration Date V isits Requested Visits Authorized [id number] Pending Review 07/06/2023 07/05/2024 1 1 Specialty Diagnoses / Procedures Referred By Contac t Referred To Contact [facility] Diagnoses Medication exposure during first trimester of Procedures US MFM with or without consult Frandy Zavala MD [address] [place] [address] [facility] [address] [place] [address] Referral ID Status Reason Start Date Expiration Date V isits Requested Visits Authorized [id number] Pending Review 07/06/2023 07/05/2024 1 1 Additional Source Comments Reason for Visit (unrecogniz ed section and content) Reason Comments Med Management Reason Comments Routine Visit Care Teams (unrecognized sec tion and content) 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 [facility]. provides no warranty or guarantee of the accuracy or completeness of information in this document.
--- NOTE | 2023-10-27 09:06 | US_ITS ---
[address] [address] Patient Name: EMIGDIO AMES MRN: [id number] date: 1995 Sex: F Assigned Patient Location: Current Patient Location: [facility] Accession/Order Number: [id number] Exam Date: 10/27/2023 09:10 Report Date: 10/27/2023 09:31 At the request of: SKYE GOINS Procedure: US OB BPP w non-stress EXAMINATION: US OB BPP w non-stress HISTORY: Adderall use disorder COMPARISON: No relevant comparison available. TECHNIQUE: Ultrasound biophysical profile was performed in the radiology department. FINDINGS: BREATHING MOVEMENTS: 2.0 GROSS BODY MOVEMENTS: 2.0 TONE: 2.0 QUALITATIVE AMNIOTIC FLUID VOLUME: 2.0 PRESENTATION: CEPHALIC HEART RATE: 154.3 bpm H.B./min AMNIOTIC FLUID VOLUME: 11.7 cm cm GESTATIONAL AGE: 34 weeks 3 days CONCLUSION: Total biophysical profile score: 8.0 Electronically authenticated by: ZHEN MATT Date: 10/27/2023 09:31
[2023-10-27 09:23] VITALS: BP 123/80; PULSE 77
== END 2023-10-27 10:09 | disposition home or self-care (01) ==
LOC: US 07:38 → FBC 09:15
PROVIDERS: PCP Family Medicine; Visit Provider Obstetrics & Gynecology
DX: F15.10 Other stimulant abuse, uncomplicated (principal); Z3A.34 34 weeks gestation of pregnancy
CPT/HCPCS: 76818

== ENCOUNTER 2023-11-03 06:57 | Outpatient (OUT) | payer OTHER, SELFPAY ==
--- NOTE | 2023-11-03 | US_ITS ---
[address] [address] Patient Name: EMIGDIO AMES MRN: [id number] date: 1995 Sex: F Assigned Patient Location: [facility] Current Patient Location: [facility] Accession/Order Number: [id number] Exam Date: 11/03/2023 09:15 Report Date: 11/03/2023 09:43 At the request of: SKYE GOINS Procedure: US OB BPP w non-stress EXAMINATION: US OB BPP w non-stress HISTORY: Adderall use F15.10 COMPARISON: Ultrasound OB biophysical 10/27/2023 TECHNIQUE: Ultrasound biophysical profile was performed in the radiology department. BREATHING MOVEMENTS: 2.0 GROSS BODY MOVEMENTS: 2.0 TONE: 2.0 QUALITATIVE AMNIOTIC FLUID VOLUME: 2.0 PRESENTATION: CEPHALIC HEART RATE: 153.4 bpm bpm. AMNIOTIC FLUID VOLUME: 10.1 cm GESTATIONAL AGE: 35 weeks 3 days CONCLUSION: Total biophysical profile score 8.0. Electronically authenticated by: CHRISTINA ERAZO Date: 11/03/2023 09:43
--- OUTSIDE RECORDS SUMMARY | 2023-11-03 07:00 | XMS_ITS | CCD ---
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 Role Phone Unavailable Primary Care Provider Pablo Hansen MD Primary Care Provider [phone] Medications Current Medications Medication Drug Class(es) Dates [...] Negative Negative - 4(70) +++ mg/dL [facility] Blood, UA Negative Negative - 50 Jer/mcL [facility] Clarity, UA Clear [facility] Color, UA Yellow [facility] Glucose, UA Negative Negative - 1999(110) ++++ mg/dL [facility] Interpretation and review of laboratory results Abnormal [facility] Ketones, UA Negative Negative - 160(16) ++++ mg/dL [facility] Leukocytes, UA Positive Negative - 500+++ Aretha/mcL [facility] Nitrite, UA Negative Negative - Positive [facility] pH, UA 6.5 5 - 9 [facility] Protein, UA Negative Negative - 1999(20) ++++ mg/dL [facility] Spec Grav, UA 1.010 1 - 1.03 [facility] Urobilinogen, UA 0.2 0.2 - 12 mg/dL [facility] with or without consu lton 07-06-2023 [...] Final 07/06/2023 11:40) PATIENT INFO: ID #: [id number] : [birth year] (28 yrs)(F) Name: EMIGDIO VAZQUEZ Visit Date: 07/06/2023 10:12 PERFORMED BY: Attending: Frandy Zavala MD Performed By: Dinorah Rivers RDMS Referred By: Juan Weaver. Address: [address] [place] [address] [place] [address] Location: [facility] SERVICE(S) PROVIDED: Comprehensive Anatomic Survey 74134 OB Transvaginal 48469 INDICATIONS: Screening for anatomic survey Z36.89 Screening [...] document Interventr. Septum: Not well visualized Cardiac [place]: Appears normal Diaphragm: Not well visualized 3 Vessel View: Appears normal 3 V Trachea View: Not well visualized IVC: Could not document Crossing: Could not document Abdomen Ventral Wall: Appears normal Cord Insertion: Appears normal Situs: Ap (more content not included)... SE[facility]APACS Frandy Zavala MD - 07/06/2023 OBSTETRICS REPORT (Signed Final 07/06/2023 11:40) PATIENT INFO: ID #: [id number] : [birth year] (28 yrs)(F) Name: EMIGDIO VAZQUEZ Visit Date: 07/06/2023 10:12 PERFORMED BY: Attending: Frandy Zavala MD Performed By: Dinorah Rivers RDMS Referred By: Juan Palafox DO Ref. Address: [address] [place] [address] [place] [address] Location: [facility] SERVICE(S) PROVIDED: Comprehensive Anatomic Survey 12723 OB Transvaginal 51993 INDICATIONS: Screening for anatomic survey Z36.89 Screening [...] document Interventr. Septum: Not well visualized Cardiac [place]: Appears normal Diaphragm: Not well visualized 3 [...] for feta (more content not included)... [facility] Radiology Study observation (narrative) [facility] Unlisted Genetic Teston 05-01 SEE SCANNED REPORT MANUAL LY TRANSCRIBED RESULTS [facility] HIV 1&2 AB/AG Screen (P24 AG )on 05-18-2023 HIV 1&2 AB/AG Non-Reactive [facility] Hepatitis B surface antigeno n 05-18-2023 Hepatitis B Surface Antigen Negative [facility] No Panel Informationon 05-18 [facility] Rubella IGG immune statuson 05-18-2023 Rubella immune IgG immune [facility] Syphilis Total(Unknown Syphi lis Status)on 05-18-2023 Syphilis Non-Reactive [facility] TSHon 05-14-2023 Thyroid Stimulating (3Rd Generation) Hormone/ Tsh 1.303 [facility] Ultrasound officeon 05-14-20 23 SEE SCANNED REPORT MANUAL LY TRANSCRIBED RESULTS [facility] Radiology Study observation (narrative) [facility] Vital Signs Date Time Vital Sign Value Performing Clinician Faci lity 07-14-2023 09:45-0500 Body weight 64.77 kg Geovanna HUIZAR Work Phone: [facility] 07-14-2023 09:45-0500 Diastolic blood pressure 70 mm[Hg] Geovanna HUIZAR Work Phone: [facility] 07-14-2023 09:45-0500 Systolic blood pressure 112 mm[Hg] Geovanna HUIZAR Work Phone: [facility] 07-06-2023 10:17-0500 Body height 162.6 cm Frandy Zavala MD Work Phone: [facility] 07-06-2023 10:17-0500 Body mass index (BMI) [Ratio] 24.2 kg/m2 Frandy Zavala MD Work Phone: [facility] 07-06-2023 10:17-0500 Body weight 63.96 kg Frandy Zavala MD Work Phone: [facility] 07-06-2023 10:17-0500 Diastolic blood pressure 82 mm[Hg] Frandy Zavala MD Work Phone: [facility] 07-06-2023 10:17-0500 Heart rate 88 /min Frandy Zavala MD Work Phone: [facility] 07-06-2023 10:17-0500 Systolic blood pressure 127 mm[Hg] Frandy Zavala MD Work Phone: [facility] Encounters Encounter Date Encounter Type Care Provider Facility Start: 07-14-2023 End: 07-14-2023 flow sheet Geovanna HUIZAR Work Phone: [facility] Comment on above: Second trimester pre gnancy Start: 07-06-2023 End: 07-06-2023 Office consultation new/estab patient 60 min Frandy Zavala MD Work Phone: [facility] Comment on above: 18 weeks gestation o f (Primary Dx); Attention deficit hyperactivity disorder (ADHD), unspecified ADHD type; Depression affecting ; Medication exposure during first trimester of ; Encounter for anatomic survey Start: 06-18-2023 Chart abstracting Frandy chilel MD Work Phone: [facility] Procedures Date Procedure Procedure Detail Performing Clinician [...] Adult BMI Screening Adult BMI Screen ing [facility] Start: 07-06-2024 Tobacco Screening Tobacco Screening [facility] Start: 07-06-2024 End: 07-06-2024 [facility] M[facility] with or without consult US MFM with or without consult Imaging Routine Encounter for anatomic survey Expected: 07/06/2024 (Approximate), Expires: 07/06/2024 [facility] Work Phone: Comment on above: Expected: 07/06/2024 (Approximate), Expires: 07/06/2024 Start: 08-12-2023 End: 08-12-2023 Patient encounter procedure 08/12/2023 2:15 PM EDT Appointment [facility] [address] [place] [address] [facility] Start: 08-11-2023 End: 08-11-2023 Patient encounter procedure 08/11/2023 1:50 PM EDT Routine [facility] [address] [place] [address] Juan Palafox, [address] [place] [address] [facility] Start: 07-06-2023 End: 07-06-2023 Patient encounter procedure 07/06/2023 10:30 AM EST Office Visit [facility] [address] [address] Frandy Zavala MD [address] [address] [facility] Start: 07-06-2023 End: 07-06-2023 Patient encounter procedure 07/06/2023 9:15 AM EST Appointment [facility] [address] [place] [address] [facility] Start: 01-29-2023 COVID-19 Vaccine ( season) COVID-19 Vaccine ( season) [facility] Start: 01-29-2023 Influenza vaccination Influenza Vacc ine [facility] Start: 01-03-2017 DTaP,Tdap and Td Vaccines (7 - Td or Tdap) DTaP,Tdap and Td Vaccines (7 - Td or Tdap) [facility] Start: 2015 Screening for malign ant neoplasm of cervix Pap Smear [facility] Start: 2013 DTaP,Tdap and Td Vaccines (1 - Tdap) DTaP,Tdap and Td Vaccines (1 - Tdap) [facility] Start: 02-05-2012 Adult BMI Screening Adult BMI Screen ing [facility] Start: 2006 Depression Screening Depression Scre ening [facility] Start: 2006 Tobacco Screening Tobacco Screening [facility] Payers Date Payer Category Payer Unknown [id number] Social History Date Type Detail Facility Start: 06-18-2023 Tobacco smoking stat [facility] Tobacco smoking consumption unknown [facility] Start: 03-11-2023 [facility] Start: 1995 Sex Assigned At Female P [facility] Start: 12-03-2022 Gender identity Identifies as female gender (finding) [facility] Start: 07-06-2023 Sexual orientation Not on file [facility] Start: 07-06-2023 Tobacco smoking stat [facility] Ex-smoker [facility] History of tobacco use Current smoker [facility] History of tobacco use Cigarette Smoker P [facility] Start: 07-06-2023 Tobacco use and exposure Smoke less tobacco non-user [facility] Start: 07-06-2023 Alcohol intake Ex-drinker (finding) [facility] Start: 07-06-2023 History of Social function [facility] Within the past 12 months we worried whether our food would run out before we got money to buy more. Never True [facility] History of Present illness Narrative 07-14-2023 [...] Medication exposure during first trimester of - [facility] with or without consult; Future [...] 3.3, 95% CI = [1.1, 9.6]) [PMID: 82356096]. Also methamphetamine exposure during has been associated with maternal and morbidity and mortality. In studies that controlled for confounders, methamphetamine exposure was associated with a two- to fourfold increase in risk of growth restriction, gestational hypertension, preeclampsia, abruption, , intrauterine demise, , and infant . [PMIDs: 81911821; 36040276;42052865] A meta-analysis of eight studies that compared outcomes for females using methamphetamines with control individuals also reported younger gestational age at , lower weight, smaller head circumference, shorter body length, and lower scores for exposed infants. The meta-analysis did not find significant differences in the rates of preeclampsia and hypertensive disorders. [PMID 82717219]. Amphetamines, including methamphetamine, are excreted into breast [...] reserve section for routine indications Notified the php software engineer about medication exposure Plan reviewed with patient. She vocalized understanding all questions answered. The patient is to continue with routine care in your office Thank you for allowing me to participate in her care. Please contact me if you have any concerns. Frandy Zavala MD, FACOG (she/hers) [facility] [address] [facility] [facility] [address] [place] [address] This document was created with Invoice[employer] technology. Though I make every effort to review the dictation as it is transcribed, on occasion the spoken word can be misinterpreted by the technology leading to inappropriate words, phrases, or sentences. This note is addressed to the requesting provider as a consultation for clinical guidance. Specific medical abbreviations are occasionally used and those are generally approved by the [place]?Board of?Obstetrics and?Gynecology?as well as?Kimmie dennison abbreviations. The above plan of care was based solely on the diagnoses for which a consultation was requested. ?More frequent testing may be indicated based on her other medical/obstetrical conditions. The management of other or medical conditions is beyond the scope of requested consultation and will continue to be followed by the primary powder compounder or primary care provider. Note to patient: [...] yes Have you been seen here at [facility] in a previous ? N/a Recent ER visits or hospitalizations? no Bring blood sugar log or meter with you today? (Please bring them with you for every visit at [facility]) n/a Traveled outside the country in the past 6 month no Any concerns that you would like me to mention to the provider today? no documented in this encounter [facility] Instructions 07-06-2023 Patient Instructions Note Date & Type Note Facility 07-06-2023 Instructions Frandy Zavala MD - 07/06/2023 10:30 AM EST [email or web address] documented in this encounter [facility] Evaluation note Note Date & Type Note Facility Evaluation note Diagnosis 18 weeks gestation of - Primary Attention deficit hyperactivity disorder (ADHD), unspecified ADHD type Depression affecting Medication exposure during first trimester of Supervision of other high-risk Encounter for anatomic survey documented in this encounter [facility] Evaluation note Note Date & Type Note Facility Evaluation note Diagnosis Second trimester state, incidental documented in this encounter [facility] Instructions Note Date & Type Note Facility Instructions Not on filedocumented in this en [facility] Reason for Referral Specialty Diagnoses / Procedures Referred By Contac t Referred To Contact [facility] Diagnoses Encounter for anatomic survey Procedures [facility] with or without consult Frandy Zavala MD [address], [address] [place] [address] [facility] [address] [place] [address] Referral ID Status Reason Start Date Expiration Date V isits Requested Visits Authorized [id number] Pending Review 07/06/2023 07/05/2024 1 1 Specialty Diagnoses / Procedures Referred By Contac t Referred To Contact [facility] Diagnoses Medication exposure during first trimester of Procedures US [facility] with or without consult Frandy Zavala MD [address], [address] [place] [address] [facility] [address] [place] [address] Referral ID Status Reason Start Date Expiration Date V isits Requested Visits Authorized [id number] Pending Review 07/06/2023 07/05/2024 1 1 Additional Source Comments Reason for Visit (unrecogniz ed section and content) Reason Comments Med Management Reason Comments Routine Visit Care Teams (unrecognized sec tion and content) Aircraft Engine Installer Relationship Specialty Start Date End Date Pablo Lynch MD [address] [place], [place] [id number] PCP - General Family Medicine 01/11/23 FOR [...] BE BASED ON THE PRIMARY CLINICAL RECORDS. [facility] [email or web address] [facility]. provides no warranty or guarantee of the accuracy or completeness of information in this document.
[2023-11-03 09:35] VITALS: BP 123/78; PULSE 86
== END 2023-11-03 09:57 | disposition home or self-care (01) ==
LOC: US 06:58 → FBC 09:11
PROVIDERS: PCP Family Medicine; Visit Provider Obstetrics & Gynecology
DX: F15.10 Other stimulant abuse, uncomplicated (principal); Z3A.35 35 weeks gestation of pregnancy
CPT/HCPCS: 76818

== ENCOUNTER 2023-11-10 06:56 | Outpatient (OUT) | payer OTHER, SELFPAY ==
--- OUTSIDE RECORDS SUMMARY | 2023-11-10 06:59 | XMS_ITS | CCD ---
Author Organization [facility] Inform ion Partnership [facility] Care Team Providers Care Core Man Name Role Phone Unavailable Primary Care Provider [...] ity Urinalysis macro (dipstick) panel (U)Ordered By: Cleia Chou on 07-14-2023 Bilirubin, UA Negative Negative - 4(70) +++ mg/dL [facility] Blood, UA Negative Negative - 50 Jer/mcL [facility] Clarity, UA Clear [facility] Color, UA Yellow [facility] Glucose, UA Negative Negative - 1999(110) ++++ mg/dL [facility] Interpretation and review of laboratory results Abnormal [facility] Ketones, UA Negative Negative - 160(16) ++++ mg/dL [facility] Leukocytes, UA Positive Negative - 500+++ Aretha/mcL [facility] Nitrite, UA Negative Negative - Positive [facility] pH, UA 6.5 5 - 9 [facility] Protein, UA Negative Negative - 1999(20) ++++ mg/dL [facility] Spec Grav, UA 1.010 1 - 1.03 [facility] Urobilinogen, UA 0.2 0.2 - 12 mg/dL [facility] with or without consu lton 07-06-2023 [...] Final 07/06/2023 11:40) PATIENT INFO: ID #: [id number] : [birth year] (28 yrs)(F) Name: EMIGDIO VAZQUEZ Visit Date: 07/06/2023 10:12 PERFORMED BY: Attending: Frandy Zavala MD Performed By: Dinorah Rivers RDMS Referred By: Juan Weaver. Address: [address] [place] [address] [place] [address] Location: [facility] SERVICE(S) PROVIDED: Comprehensive Anatomic Survey 58115 OB Transvaginal 97936 INDICATIONS: Screening for anatomic survey Z36.89 Screening [...] document Interventr. Septum: Not well visualized Cardiac Wyckoff: Appears normal Diaphragm: Not well visualized 3 Vessel View: Appears normal 3 V Trachea View: Not well visualized IVC: Could not document Crossing: Could not document Abdomen Ventral Wall: Appears normal Cord Insertion: Appears normal Situs: Ap (more content not included)... SECTRAPACS Frandy Zavala MD - 07/06/2023 OBSTETRICS REPORT (Signed Final 07/06/2023 11:40) PATIENT INFO: ID #: [id number] : [birth year] (28 yrs)(F) Name: EMIGDIO VAZQUEZ Visit Date: 07/06/2023 10:12 PERFORMED BY: Attending: Frandy Zavala MD Performed By: Dinorah Rivers RDMS Referred By: Juan Palafox DO Ref. Address: [address] [place] [address] [place] [address] Location: [facility] SERVICE(S) PROVIDED: Comprehensive Anatomic Survey 04978 OB Transvaginal 43026 INDICATIONS: Screening for anatomic survey Z36.89 Screening [...] document Interventr. Septum: Not well visualized Cardiac Wyckoff: Appears normal Diaphragm: Not well visualized 3 [...] diagnostic for feta (more content not included)... [facility] Radiology Study observation (narrative) [facility] Unlisted Genetic Teston 05-01 SEE SCANNED REPORT MANUAL LY TRANSCRIBED RESULTS [facility] HIV 1&2 AB/AG Screen (P24 AG )on 05-18-2023 HIV 1&2 AB/AG Non-Reactive [facility] Hepatitis B surface antigeno n 05-18-2023 Hepatitis B Surface Antigen Negative [facility] No Panel Informationon 05-18 [facility] Rubella IGG immune statuson 05-18-2023 Rubella immune IgG immune [facility] Syphilis Total(Unknown Syphi lis Status)on 05-18-2023 Syphilis Non-Reactive [facility] TSHon 05-14-2023 Thyroid Stimulating (3Rd Generation) Hormone/ Tsh 1.303 [facility] Ultrasound officeon 05-14-20 23 SEE SCANNED REPORT MANUAL LY TRANSCRIBED RESULTS [facility] Radiology Study observation (narrative) [facility] Vital Signs Date Time Vital Sign Value Performing Clinician Faci lity 07-14-2023 09:45-0500 Body weight 64.77 kg Geovanna HUIZAR Work Phone: [facility] 07-14-2023 09:45-0500 Diastolic blood pressure 70 mm[Hg] Geovanna HUIZAR Work Phone: [facility] 07-14-2023 09:45-0500 Systolic blood pressure 112 mm[Hg] Geovanna HUIZAR Work Phone: [facility] 07-06-2023 10:17-0500 Body height 162.6 cm Frandy Zavala MD Work Phone: [facility] 07-06-2023 10:17-0500 Body mass index (BMI) [Ratio] 24.2 kg/m2 Frandy Zavala MD Work Phone: [facility] 07-06-2023 10:17-0500 Body weight 63.96 kg Frandy Zavala MD Work Phone: [facility] 07-06-2023 10:17-0500 Diastolic blood pressure 82 mm[Hg] Frandy Zavala MD Work Phone: [facility] 07-06-2023 10:17-0500 Heart rate 88 /min Frandy Zavala MD Work Phone: [facility] 07-06-2023 10:17-0500 Systolic blood pressure 127 mm[Hg] Frandy Zavala MD Work Phone: [facility] Encounters Encounter Date Encounter Type Care Provider Facility Start: 07-14-2023 End: 07-14-2023 flow sheet Geovanna HUIZAR Work Phone: [facility] Comment on above: Second trimester pre gnancy Start: 07-06-2023 End: 07-06-2023 Office consultation new/estab patient 60 min Frandy Zavala MD Work Phone: [facility] Comment on above: 18 weeks gestation o f (Primary Dx); Attention deficit hyperactivity disorder (ADHD), unspecified ADHD type; Depression affecting ; Medication exposure during first trimester of ; Encounter for anatomic survey Start: 06-18-2023 Chart abstracting Frandy chilel MD Work Phone: [facility] Procedures Date Procedure Procedure Detail Performing Clinician [...] Adult BMI Screening Adult BMI Screen ing [facility] Start: 07-06-2024 Tobacco Screening Tobacco Screening [facility] Start: 07-06-2024 End: 07-06-2024 US MFM with or without consult US MFM with or without consult Imaging Routine Encounter for anatomic survey Expected: 07/06/2024 (Approximate), Expires: 07/06/2024 [facility] Work Phone: Comment on above: Expected: 07/06/2024 (Approximate), Expires: 07/06/2024 Start: 08-12-2023 End: 08-12-2023 Patient encounter procedure 08/12/2023 2:15 PM EDT Appointment [facility] [address] [place] [address] [facility] Start: 08-11-2023 End: 08-11-2023 Patient encounter procedure 08/11/2023 1:50 PM EDT Routine [facility] [address] [place] [address] Juan Palafox, [address] [place] [address] [facility] Start: 07-06-2023 End: 07-06-2023 Patient encounter procedure 07/06/2023 10:30 AM EST Office Visit [facility] [address] [address] Frandy Zavala MD [address] [address] [facility] Start: 07-06-2023 End: 07-06-2023 Patient encounter procedure 07/06/2023 9:15 AM EST Appointment [facility] [address] [place] [address] [facility] Start: 01-29-2023 COVID-19 Vaccine ( season) COVID-19 Vaccine ( season) [facility] Start: 01-29-2023 Influenza vaccination Influenza Vacc ine [facility] Start: 01-03-2017 DTaP,Tdap and Td Vaccines (7 - Td or Tdap) DTaP,Tdap and Td Vaccines (7 - Td or Tdap) [facility] Start: 2015 Screening for malign ant neoplasm of cervix Pap Smear [facility] Start: 2013 DTaP,Tdap and Td Vaccines (1 - Tdap) DTaP,Tdap and Td Vaccines (1 - Tdap) [facility] Start: 02-05-2012 Adult BMI Screening Adult BMI Screen ing [facility] Start: 2006 Depression Screening Depression Scre ening [facility] Start: 2006 Tobacco Screening Tobacco Screening [facility] Payers Date Payer Category Payer Unknown [id number] Social History Date Type Detail Facility Start: 06-18-2023 Tobacco smoking stat [facility] Tobacco smoking consumption unknown [facility] Start: 03-11-2023 [facility] Start: 1995 Sex Assigned At Female [facility] Start: 12-03-2022 Gender identity Identifies as female gender (finding) [facility] Start: 07-06-2023 Sexual orientation Not on file [facility] Start: 07-06-2023 Tobacco smoking stat [facility] Ex-smoker [facility] History of tobacco use Current smoker [facility] History of tobacco use Cigarette Smoker [facility] Start: 07-06-2023 Tobacco use and exposure Smoke less tobacco non-user [facility] Start: 07-06-2023 Alcohol intake Ex-drinker (finding) [facility] Start: 07-06-2023 History of Social function [facility] Within the past 12 months we worried whether our food would run out before we got money to buy more. Never True [facility] History of Present illness Narrative 07-14-2023 [...] Medication exposure during first trimester of - [facility] with or without consult; Future [...] 3.3, 95% CI = [1.1, 9.6]) [PMID: 55745927]. Also methamphetamine exposure during has been associated with maternal and morbidity and mortality. In studies that controlled for confounders, methamphetamine exposure was associated with a two- to fourfold increase in risk of growth restriction, gestational hypertension, preeclampsia, abruption, , intrauterine demise, , and . [PMIDs: 93935649; 72925472;67845252] A meta-analysis of eight studies that compared outcomes for females using methamphetamines with control individuals also reported younger gestational age at , lower weight, smaller head circumference, shorter body length, and lower scores for exposed infants. The meta-analysis did not find significant differences in the rates of preeclampsia and hypertensive disorders. [PMID 52805326]. Amphetamines, including methamphetamine, are excreted into breast [...] reserve section for routine indications Notified the fashion director about medication exposure Plan reviewed with patient. She vocalized understanding all questions answered. The patient is to continue with routine care in your office Thank you for allowing me to participate in her care. Please contact me if you have any concerns. Frandy Zavala MD, FACOG (she/hers) Maternal- [facility] [address] [facility] [address] [place] [address] This document was created with [email or web address] technology. Though I make every effort to review the dictation as it is transcribed, on occasion the spoken word can be misinterpreted by the technology leading to inappropriate words, phrases, or sentences. This note is addressed to the requesting provider as a consultation for clinical guidance. Specific medical abbreviations are occasionally used and those are generally approved by the [place]?Board of?Obstetrics and?Gynecology?as well as?Kimmie dennison abbreviations. The above plan of care was based solely on the diagnoses for which a consultation was requested. ?More frequent testing may be indicated based on her other medical/obstetrical conditions. The management of other or medical conditions is beyond the scope of requested consultation and will continue to be followed by the primary room service supervisor or primary care provider. Note to patient: [...] yes Have you been seen here at [facility] in a previous ? N/a Recent ER visits or hospitalizations? no Bring blood sugar log or meter with you today? (Please bring them with you for every visit at [facility]) n/a Traveled outside the country in the past 6 month no Any concerns that you would like me to mention to the provider today? no documented in this encounter [facility] Instructions 07-06-2023 Patient Instructions Note Date & Type Note Facility 07-06-2023 Instructions Frandy Zavala MD - 07/06/2023 10:30 AM EST [email or web address] in this encounter [facility] Evaluation note Note Date & Type Note Facility Evaluation note Diagnosis 18 weeks gestation of - Primary Attention deficit hyperactivity disorder (ADHD), unspecified ADHD type Depression affecting Medication exposure during first trimester of Supervision of other high-risk Encounter for anatomic survey documented in this encounter [facility] Evaluation note Note Date & Type Note Facility Evaluation note Diagnosis Second trimester state, incidental documented in this encounter [facility] Instructions Note Date & Type Note Facility Instructions Not on filedocumented in this en counter [facility] Reason for Referral Specialty Diagnoses / Procedures Referred By Contac t Referred To Contact [facility] Diagnoses Encounter for anatomic survey Procedures US MFM with or without consult Frandy Zavala MD [address], [address] [place] [address] [facility] [address] [place] [address] Referral ID Status Reason Start Date Expiration Date V isits Requested Visits Authorized [id number] Pending Review 07/06/2023 07/05/2024 1 1 Specialty Diagnoses / Procedures Referred By Contac t Referred To Contact [facility] Diagnoses Medication exposure during first trimester of Procedures US MFM with or without consult Frandy Zavala MD [address] [place] [address] [facility] Maternal Med [address] [place] [address] Referral ID Status Reason Start Date Expiration Date V isits Requested Visits Authorized [id number] Pending Review 07/06/2023 07/05/2024 1 1 Additional Source Comments Reason for Visit (unrecogniz ed section and content) Reason Comments Med Management Reason Comments Routine Visit Care Teams (unrecognized sec tion and content) Core Man Relationship Specialty Start Date End Date Pablo Lynch MD [address] [place], [place] [id number] PCP - General Family Medicine 01/11/23 FOR [...] BE BASED ON THE PRIMARY CLINICAL RECORDS. [facility]. provides no warranty or guarantee of the accuracy or completeness of information in this document.
--- NOTE | 2023-11-10 09:14 | US_ITS ---
[address] [address] Patient Name: EMIGDIO AMES MRN: [id number] date: 1995 Sex: F Assigned Patient Location: [facility] Current Patient Location: Accession/Order Number: [id number] Exam Date: 11/10/2023 09:16 Report Date: 11/10/2023 10:12 At the request of: SKYE GOINS Procedure: US OB BPP w non-stress EXAMINATION: US OB BPP w non-stress HISTORY: Adderall use disorder F15.10 COMPARISON: No relevant comparison available. TECHNIQUE: Ultrasound biophysical profile was performed in the radiology department. FINDINGS: BREATHING MOVEMENTS: 2.0 GROSS BODY MOVEMENTS: 2.0 TONE: 2.0 QUALITATIVE AMNIOTIC FLUID VOLUME: 2.0 PRESENTATION: CEPHALIC HEART RATE: 139.2 bpm H.B./min AMNIOTIC FLUID VOLUME: 8.0 cm cm GESTATIONAL AGE: 36 weeks 3 days CONCLUSION: Total biophysical profile score: 8.0 Electronically authenticated by: ZHEN MATT Date: 11/10/2023 10:12
--- NOTE | 2023-11-10 09:14 | US_ITS ---
[address] [address] Patient Name: EMIGDIO AMES MRN: [id number] date: 1995 Sex: F Assigned Patient Location: [facility] Current Patient Location: Accession/Order Number: [id number] Exam Date: 11/10/2023 09:16 Report Date: 11/10/2023 11:59 At the request of: SKYE GOINS Procedure: US OB growth EXAMINATION: US OB growth HISTORY: Adderall use disorder F15.10 COMPARISON: FINDINGS: Heart Rate: 139.2 bpm Amniotic Fluid Volume: 8.0 cm Number: 1.0 Position: Cephalic presentation, longitudinal lie Maximum Vertical Pocket: 2.1 cm cm 1.2 cm cm 3.4 cm cm 1.3 cm cm BIOMETRY: BPD: 8.9 cm cm; 35 weeks 6 days; 46% HC: 32.6 cmcm; 37 weeks 0 days , 34% AC: 30.9 cm cm; 34 weeks 6 days, 18% FL: 6.5 cm cm; 33 weeks 3 days; <3.0 % % EFW: 2512.6 grams, 5 lbs. 9 oz., 14% FL/AC: 21.1 FL/BPD: 73.2 HC/AC: 1.1 GESTATIONAL AGE: Age by EDC: 36 weeks 3 days GANESH by EDC: 12/05/2023 Age by US: 35 weeks 2 days GANESH by US: 12/13/2023 US/US OB growth IMPRESSION: Femur length less than the 3rd percentile Otherwise normal interval growth Electronically authenticated by: ZHEN MATT Date: 11/10/2023 11:59
[2023-11-10 09:37] VITALS: BP 130/78; PULSE 81
== END 2023-11-10 10:04 | disposition home or self-care (01) ==
LOC: US 06:57 → FBC 09:13
PROVIDERS: PCP Family Medicine; Visit Provider Obstetrics & Gynecology
DX: Z34.93 Encounter for supervision of normal pregnancy, unspecified, third trimester (principal); Z3A.36 36 weeks gestation of pregnancy; F15.10 Other stimulant abuse, uncomplicated
CPT/HCPCS: 76816; 76818; 87081

== ENCOUNTER 2023-11-10 20:56 | Outpatient (REF) | payer OTHER, SELFPAY ==
--- OUTSIDE RECORDS SUMMARY | 2023-11-10 21:02 | XMS_ITS | CCD ---
Author Organization [facility] Inform ion Partnership [facility] Care Team Providers Care Accident Report Clerk Name Role Phone Unavailable Primary Care Provider [...] UA Negative Negative - 4(70) +++ mg/dL [facility] Blood, UA Negative Negative - 50 Jer/mcL [facility] Clarity, UA Clear [facility] Color, UA Yellow [facility] Glucose, UA Negative Negative - 1999(110) ++++ mg/dL [facility] Interpretation and review of laboratory results Abnormal [facility] Ketones, UA Negative Negative - 160(16) ++++ mg/dL [facility] Leukocytes, UA Positive Negative - 500+++ Aretha/mcL [facility] Nitrite, UA Negative Negative - Positive [facility] pH, UA 6.5 5 - 9 [facility] Protein, UA Negative Negative - 1999(20) ++++ mg/dL [facility] Spec Grav, UA 1.010 1 - 1.03 [facility] Urobilinogen, UA 0.2 0.2 - 12 mg/dL [facility] with or without consu lton 07-06-2023 IMPRESSION: [...] Final 07/06/2023 11:40) PATIENT INFO: ID #: [id number] : [birth year] (28 yrs)(F) Name: EMIGDIO VAZQUEZ Visit Date: 07/06/2023 10:12 PERFORMED BY: Attending: Frandy Zavala MD Performed By: Dinorah Rivers RDMS Referred By: Juan Weaver. Address: [address] [place] [address] [place] [address] Location: [facility] SERVICE(S) PROVIDED: Comprehensive Anatomic Survey 02332 OB Transvaginal 90619 INDICATIONS: Screening for anatomic survey Z36.89 Screening [...] document Interventr. Septum: Not well visualized Cardiac Noble: Appears normal Diaphragm: Not well visualized 3 Vessel View: Appears normal 3 V Trachea View: Not well visualized IVC: Could not document Crossing: Could not document Abdomen Ventral Wall: Appears normal Cord Insertion: Appears normal Situs: Ap (more content not included)... SE[facility]RAPACS Frandy Zavala MD - 07/06/2023 OBSTETRICS REPORT (Signed Final 07/06/2023 11:40) PATIENT INFO: ID #: [id number] : [birth year] (28 yrs)(F) Name: EMIGDIO VAZQUEZ Visit Date: 07/06/2023 10:12 PERFORMED BY: Attending: Frandy Zavala MD Performed By: Dinorah Rivers RDMS Referred By: Juan Palafox DO Ref. Address: [address] [place] [address] [place] [address] Location: [facility] SERVICE(S) PROVIDED: Comprehensive Anatomic Survey 20838 OB Transvaginal 74384 INDICATIONS: Screening for anatomic survey Z36.89 Screening [...] document Interventr. Septum: Not well visualized Cardiac Noble: Appears normal Diaphragm: Not well visualized 3 [...] diagnostic for feta (more content not included)... [facility] Radiology Study observation (narrative) [facility] Unlisted Genetic Teston 05-01 SEE SCANNED REPORT MANUAL LY TRANSCRIBED RESULTS [facility] HIV 1&2 AB/AG Screen (P24 AG )on 05-18-2023 HIV 1&2 AB/AG Non-Reactive [facility] Hepatitis B surface antigeno n 05-18-2023 Hepatitis B Surface Antigen Negative [facility] No Panel Informationon 05-18 [facility] Rubella IGG immune statuson 05-18-2023 Rubella immune IgG immune [facility] Syphilis Total(Unknown Syphi lis Status)on 05-18-2023 Syphilis Non-Reactive [facility] TSHon 05-14-2023 Thyroid Stimulating (3Rd Generation) Hormone/ Tsh 1.303 [facility] Ultrasound officeon 05-14-20 23 SEE SCANNED REPORT MANUAL LY TRANSCRIBED RESULTS [facility] Radiology Study observation (narrative) [facility] Vital Signs Date Time Vital Sign Value Performing Clinician Faci lity 07-14-2023 09:45-0500 Body weight 64.77 kg Geovanna HUIZAR Work Phone: [facility] 07-14-2023 09:45-0500 Diastolic blood pressure 70 mm[Hg] Geovanna HUIZAR Work Phone: [facility] 07-14-2023 09:45-0500 Systolic blood pressure 112 mm[Hg] Geovanna HUIZAR Work Phone: [facility] 07-06-2023 10:17-0500 Body height 162.6 cm Frandy Zavala MD Work Phone: [facility] 07-06-2023 10:17-0500 Body mass index (BMI) [Ratio] 24.2 kg/m2 Frandy Zavala MD Work Phone: [facility] 07-06-2023 10:17-0500 Body weight 63.96 kg Frandy Zavala MD Work Phone: [facility] 07-06-2023 10:17-0500 Diastolic blood pressure 82 mm[Hg] Frandy Zavala MD Work Phone: [facility] 07-06-2023 10:17-0500 Heart rate 88 /min Frandy Zavala MD Work Phone: [facility] 07-06-2023 10:17-0500 Systolic blood pressure 127 mm[Hg] Frandy Zavala MD Work Phone: [facility] Encounters Encounter Date Encounter Type Care Provider Facility Start: 07-14-2023 End: 07-14-2023 flow sheet Geovanna HUIZAR Work Phone: [facility] Comment on above: Second trimester pre gnancy Start: 07-06-2023 End: 07-06-2023 Office consultation new/estab patient 60 min Frandy Zavala MD Work Phone: [facility] [place] Comment on above: 18 weeks gestation o f (Primary Dx); Attention deficit hyperactivity disorder (ADHD), unspecified ADHD type; Depression affecting ; Medication exposure during first trimester of ; Encounter for anatomic survey Start: 06-18-2023 Chart abstracting Frandy chilel MD Work Phone: [facility] [place] Procedures Date Procedure Procedure Detail Performing Clinician [...] Screen ing [facility] Start: 07-06-2024 Tobacco Screening Tobacco Screening [facility] Start: 07-06-2024 End: 07-06-2024 [facility] with or without consult [facility] with or without consult Imaging Routine Encounter for anatomic survey Expected: 07/06/2024 (Approximate), Expires: 07/06/2024 [facility] Work Phone: Comment on above: Expected: 07/06/2024 (Approximate), Expires: 07/06/2024 Start: 08-12-2023 End: 08-12-2023 Patient encounter procedure 08/12/2023 2:15 PM EDT Appointment [facility] [address] [place] [address] [facility] Start: 08-11-2023 End: 08-11-2023 Patient encounter procedure 08/11/2023 1:50 PM EDT Routine [facility] [address] [place] [address] Juan Palafox, [address] [facility] [address] [place] [address] [facility] Start: 07-06-2023 End: 07-06-2023 Patient encounter procedure 07/06/2023 10:30 AM EST Office Visit [facility] [place] [address] [place] [address] Frandy Zavala MD [address] [address] [facility] [place] Start: 07-06-2023 End: 07-06-2023 Patient encounter procedure 07/06/2023 9:15 AM EST Appointment [facility] [place] [address] [place] [place] [address] [facility] Start: 01-29-2023 COVID-19 Vaccine ( season) COVID-19 Vaccine ( season) [facility] Start: 01-29-2023 Influenza vaccination Influenza Vacc ine [facility] Start: 01-03-2017 DTaP,Tdap and Td Vaccines (7 - Td or Tdap) DTaP,Tdap and Td Vaccines (7 - Td or Tdap) [facility] Start: 2015 Screening for malign ant neoplasm of cervix Pap Smear [facility] Start: 2013 DTaP,Tdap and Td Vaccines (1 - Tdap) DTaP,Tdap and Td Vaccines (1 - Tdap) [facility] Start: 02-05-2012 Adult BMI Screening Adult BMI Screen ing [facility] Start: 2006 Depression Screening Depression Scre ening [facility] Start: 2006 Tobacco Screening Tobacco Screening [facility] Payers Date Payer Category Payer Unknown [id number] Social History Date Type Detail Facility Start: 06-18-2023 Tobacco smoking stat [facility] Tobacco smoking consumption unknown [facility] Start: 03-11-2023 [facility] Start: 1995 Sex Assigned At Female P [facility] Start: 12-03-2022 Gender identity Identifies as female gender (finding) [facility] Start: 07-06-2023 Sexual orientation Not on file [facility] Start: 07-06-2023 Tobacco smoking stat [facility] Ex-smoker [facility] History of tobacco use Current smoker [facility] History of tobacco use Cigarette Smoker P [facility] Start: 07-06-2023 Tobacco use and exposure Smoke less tobacco non-user [facility] Start: 07-06-2023 Alcohol intake Ex-drinker (finding) [facility] Start: 07-06-2023 History of Social function [facility] Within the past 12 months we worried whether our food would run out before we got money to buy more. Never True [facility] History of Present illness Narrative 07-14-2023 BHUPENDRA [...] Medication exposure during first trimester of - [facility] with or without consult; Future [...] 3.3, 95% CI = [1.1, 9.6]) [PMID: 79447274]. Also methamphetamine exposure during has been associated with maternal and morbidity and mortality. In studies that controlled for confounders, methamphetamine exposure was associated with a two- to fourfold increase in risk of growth restriction, gestational hypertension, preeclampsia, abruption, , intrauterine demise, , and . [PMIDs: 63063979; 24578626;08601551] A meta-analysis of eight studies that compared outcomes for females using methamphetamines with control individuals also reported younger gestational age at , lower weight, smaller head circumference, shorter body length, and lower scores for exposed infants. The meta-analysis did not find significant differences in the rates of preeclampsia and hypertensive disorders. [PMID 01627911]. Amphetamines, including methamphetamine, are excreted into breast [...] reserve section for routine indications Notified the manager transplant about medication exposure Plan reviewed with patient. She vocalized understanding all questions answered. The patient is to continue with routine care in your office Thank you for allowing me to participate in her care. Please contact me if you have any concerns. Frandy Zavala MD, FACOG (she/hers) [facility] [address] [facility] [address] [place] [address] This document was created with [employer] technology. Though I make every effort to review the dictation as it is transcribed, on occasion the spoken word can be misinterpreted by the technology leading to inappropriate words, phrases, or sentences. This note is addressed to the requesting provider as a consultation for clinical guidance. Specific medical abbreviations are occasionally used and those are generally approved by the [place]?Board of?Obstetrics and?Gynecology?as well as?Kimmie dennison abbreviations. The above plan of care was based solely on the diagnoses for which a consultation was requested. ?More frequent testing may be indicated based on her other medical/obstetrical conditions. The management of other or medical conditions is beyond the scope of requested consultation and will continue to be followed by the primary risk management intern or primary care provider. Note to patient: [...] yes Have you been seen here at [facility] in a previous ? N/a Recent ER visits or hospitalizations? no Bring blood sugar log or meter with you today? (Please bring them with you for every visit at [facility]) n/a Traveled outside the country in the past 6 month no Any concerns that you would like me to mention to the provider today? no documented in this encounter [facility] Instructions 07-06-2023 Patient Instructions Note Date & Type Note Facility 07-06-2023 Instructions Frandy Zavala MD - 07/06/2023 10:30 AM EST [email or web address] documented in this encounter [facility] Evaluation note Note Date & Type Note Facility Evaluation note Diagnosis 18 weeks gestation of - Primary Attention deficit hyperactivity disorder (ADHD), unspecified ADHD type Depression affecting Medication exposure during first trimester of Supervision of other high-risk Encounter for anatomic survey documented in this encounter [facility] Evaluation note Note Date & Type Note Facility Evaluation note Diagnosis Second trimester state, incidental documented in this encounter [facility] Instructions Note Date & Type Note Facility Instructions Not on filedocumented in this en counter [facility] Reason for Referral Specialty Diagnoses / Procedures Referred By Contac t Referred To Contact [facility] Diagnoses Encounter for anatomic survey Procedures [facility] with or without consult Frandy Zavala MD [address], [address] [place] [address] [facility] [address] [place] [address] Referral ID Status Reason Start Date Expiration Date V isits Requested Visits Authorized [id number] Pending Review 07/06/2023 07/05/2024 1 1 Specialty Diagnoses / Procedures Referred By Contac t Referred To Contact [facility] Diagnoses Medication exposure during first trimester of Procedures US [facility] with or without consult Frandy Zavala MD [address] [place] [address] [facility] [address] [place] [address] Referral ID Status Reason Start Date Expiration Date V isits Requested Visits Authorized [id number] Pending Review 07/06/2023 07/05/2024 1 1 Additional Source Comments Reason for Visit (unrecogniz ed section and content) Reason Comments Med Management Reason Comments Routine Visit Care Teams (unrecognized sec tion and content) Accident Report Clerk Relationship Specialty Start Date End Date Pablo Lynch MD [address] [place], [place] [id number] PCP - General Family Medicine 01/11/23 FOR [...] BE BASED ON THE PRIMARY CLINICAL RECORDS. [facility]. provides no warranty or guarantee of the accuracy or completeness of information in this document.
== END 2023-11-10 20:57 | disposition home or self-care (01) ==
LOC: LAB 20:56
PROVIDERS: PCP Family Medicine; Visit Provider Obstetrics & Gynecology
DX: Z34.93 Encounter for supervision of normal pregnancy, unspecified, third trimester (principal); Z3A.36 36 weeks gestation of pregnancy
CPT/HCPCS: 87081

== ENCOUNTER 2023-11-11 06:58 | Outpatient (OUT) | payer OTHER, SELFPAY ==
--- OUTSIDE RECORDS SUMMARY | 2023-11-11 07:00 | XMS_ITS | CCD ---
Author Organization [facility] Inform ion Partnership [facility] Care Team Providers Care Supervisor Loading Name Role Phone Unavailable Primary Care Provider [...] Negative - 4(70) +++ mg/dL [facility] Blood, UA Negative Negative - 50 Jer/mcL [facility] Clarity, UA Clear [facility] Color, UA Yellow [facility] Glucose, UA Negative Negative - 1999(110) ++++ mg/dL [facility] Interpretation and review of laboratory results Abnormal [facility] Ketones, UA Negative Negative - 160(16) ++++ mg/dL [facility] Leukocytes, UA Positive Negative - 500+++ Aretha/mcL [facility] Nitrite, UA Negative Negative - Positive [facility] pH, UA 6.5 5 - 9 [facility] Protein, UA Negative Negative - 1999(20) ++++ mg/dL [facility] Spec Grav, UA 1.010 1 - 1.03 [facility] Urobilinogen, UA 0.2 0.2 - 12 mg/dL [facility] with or without consu lton 07-06-2023 [...] Final 07/06/2023 11:40) PATIENT INFO: ID #: [id number] : [birth year] (28 yrs)(F) Name: EMIGDIO VAZQUEZ Visit Date: 07/06/2023 10:12 PERFORMED BY: Attending: Frandy Zavala MD Performed By: Dinorah Rivers RDMS Referred By: Juan Weaver. Address: [address] [place] [address] [place] [address] Location: [facility] SERVICE(S) PROVIDED: Comprehensive Anatomic Survey 53214 OB Transvaginal 54410 INDICATIONS: Screening for anatomic survey Z36.89 Screening [...] document Interventr. Septum: Not well visualized Cardiac [place]: Appears normal Diaphragm: Not well visualized 3 Vessel View: Appears normal 3 V Trachea View: Not well visualized IVC: Could not document Crossing: Could not document Abdomen Ventral Wall: Appears normal Cord Insertion: Appears normal Situs: Ap (more content not included)... SE[facility]RAPACS Frandy Zavala MD - 07/06/2023 OBSTETRICS REPORT (Signed Final 07/06/2023 11:40) PATIENT INFO: ID #: [id number] : [birth year] (28 yrs)(F) Name: EMIGDIO VAZQUEZ Visit Date: 07/06/2023 10:12 PERFORMED BY: Attending: Frandy Zavala MD Performed By: Dinorah Rivers RDMS Referred By: Juan Palafox DO Ref. Address: [address] [place] [address] [place] [address] Location: [facility] SERVICE(S) PROVIDED: Comprehensive Anatomic Survey 96828 OB Transvaginal 25679 INDICATIONS: Screening for anatomic survey Z36.89 Screening [...] document Interventr. Septum: Not well visualized Cardiac [place]: Appears normal Diaphragm: Not well visualized 3 [...] diagnostic for feta (more content not included)... [facility] Radiology Study observation (narrative) [facility] Unlisted Genetic Teston 05-01 SEE SCANNED REPORT MANUAL LY TRANSCRIBED RESULTS [facility] HIV 1&2 AB/AG Screen (P24 AG )on 05-18-2023 HIV 1&2 AB/AG Non-Reactive [facility] Hepatitis B surface antigeno n 05-18-2023 Hepatitis B Surface Antigen Negative [facility] No Panel Informationon 05-18 [facility] Rubella IGG immune statuson 05-18-2023 Rubella immune IgG immune [facility] Syphilis Total(Unknown Syphi lis Status)on 05-18-2023 Syphilis Non-Reactive [facility] TSHon 05-14-2023 Thyroid Stimulating (3Rd Generation) Hormone/ Tsh 1.303 [facility] Ultrasound officeon 05-14-20 23 SEE SCANNED REPORT MANUAL LY TRANSCRIBED RESULTS [facility] Radiology Study observation (narrative) [facility] Vital Signs Date Time Vital Sign Value Performing Clinician Faci lity 07-14-2023 09:45-0500 Body weight 64.77 kg Geovanna HUIZAR Work Phone: [facility] 07-14-2023 09:45-0500 Diastolic blood pressure 70 mm[Hg] Geovanna HUIZAR Work Phone: [facility] 07-14-2023 09:45-0500 Systolic blood pressure 112 mm[Hg] Geovanna HUIZAR Work Phone: [facility] 07-06-2023 10:17-0500 Body height 162.6 cm Frandy [...] Frandy Zavala MD Work Phone: [facility] Comment on above: 18 weeks gestation o f (Primary Dx); Attention deficit hyperactivity disorder (ADHD), unspecified ADHD type; Depression affecting ; Medication exposure during first trimester of ; Encounter for anatomic survey Start: 06-18-2023 Chart abstracting Frandy chilel MD Work Phone: [facility] Procedures Date Procedure Procedure Detail Performing Clinician [...] 08/12/2023 2:15 PM EDT Appointment [facility] [address] [place] [address] [facility] Start: 08-11-2023 End: 08-11-2023 Patient encounter procedure 08/11/2023 1:50 PM EDT Routine [facility] [address] [place] [address] Juan Palafox, [address] [place] [address] [facility] Start: 07-06-2023 End: 07-06-2023 Patient encounter procedure 07/06/2023 10:30 AM EST Office Visit [facility] [address] [place] [address] Farndy Zavala MD [address] [address] [facility] Start: 07-06-2023 End: 07-06-2023 Patient encounter procedure 07/06/2023 9:15 AM EST Appointment [facility] [address] [place] [address] [facility] Start: 01-29-2023 COVID-19 Vaccine ( season) COVID-19 [...] Hospital Payers Date Payer Category Payer Unknown [id number] Social History Date Type Detail Facility Start: 06-18-2023 Tobacco smoking stat [facility] Tobacco smoking consumption unknown [facility] Start: 03-11-2023 [facility] Start: 1995 Sex Assigned At Female P [facility] Start: 12-03-2022 Gender identity Identifies as female gender (finding) [facility] Start: 07-06-2023 Sexual orientation Not on file [facility] Start: 07-06-2023 Tobacco smoking stat [facility] Ex-smoker [facility] History of tobacco use Current smoker [facility] History of tobacco use Cigarette Smoker P [facility] Start: 07-06-2023 Tobacco use and exposure [...] Medication exposure during first trimester of - [facility] with or without consult; Future [...] 3.3, 95% CI = [1.1, 9.6]) [PMID: 51439234]. Also methamphetamine exposure during has been associated with maternal and morbidity and mortality. In studies that controlled for confounders, methamphetamine exposure was associated with a two- to fourfold increase in risk of growth restriction, gestational hypertension, preeclampsia, abruption, , intrauterine demise, , and . [PMIDs: 17969832; 98339705;44647949] A meta-analysis of eight studies that compared outcomes for females using methamphetamines with control individuals also reported younger gestational age at , lower weight, smaller head circumference, shorter body length, and lower scores for exposed infants. The meta-analysis did not find significant differences in the rates of preeclampsia and hypertensive disorders. [PMID 75553358]. Amphetamines, including methamphetamine, are excreted into breast [...] reserve section for routine indications Notified the binder and box builder about medication exposure Plan reviewed with patient. She vocalized understanding all questions answered. The patient is to continue with routine care in your office Thank you for allowing me to participate in her care. Please contact me if you have any concerns. Frandy Zavala MD, FACOG (she/hers) Maternal- Medicine [facility] [address] [facility] 1[address] [place] [address] This document was created with [employer] technology. Though I make every effort to review the dictation as it is transcribed, on occasion the spoken word can be misinterpreted by the technology leading to inappropriate words, phrases, or sentences. This note is addressed to the requesting provider as a consultation for clinical guidance. Specific medical abbreviations are occasionally used and those are generally approved by the [place]?Board of?Obstetrics and?Gynecology?as well as?Kimmie dennison abbreviations. The above plan of care was based solely on the diagnoses for which a consultation was requested. ?More frequent testing may be indicated based on her other medical/obstetrical conditions. The management of other or medical conditions is beyond the scope of requested consultation and will continue to be followed by the primary commercial title examiner or primary care provider. Note to patient: [...] yes Have you been seen here at [facility] in a previous ? N/a Recent ER visits or hospitalizations? no Bring blood sugar log or meter with you today? (Please bring them with you for every visit at [facility]) n/a Traveled outside the country in the past 6 month no Any concerns that you would like me to mention to the provider today? no documented in this encounter [facility] Instructions 07-06-2023 Patient Instructions Note Date & Type Note Facility 07-06-2023 Instructions Frandy Zavala MD - 07/06/2023 10:30 AM EST [email or web address] [email or web address] documented in this encounter [facility] Evaluation note Note Date & Type Note Facility Evaluation note Diagnosis 18 weeks gestation of - Primary Attention deficit hyperactivity disorder (ADHD), unspecified ADHD type Depression affecting Medication exposure during first trimester of Supervision of other high-risk Encounter for anatomic survey documented in this encounter [facility] Evaluation note Note Date & Type Note Facility Evaluation note Diagnosis Second trimester state, incidental documented in this encounter [facility] Instructions Note Date & Type Note Facility Instructions Not on filedocumented in this en counter [facility] Reason for Referral Specialty Diagnoses / Procedures Referred By Contac t Referred To Contact [facility]aternal [facility] Diagnoses Encounter for anatomic survey Procedures [facility] with or without consult Frandy Zavala MD [address], [address] [place] [address] [facility] [address] [place] [address] Referral ID Status Reason Start Date Expiration Date V isits Requested Visits Authorized [id number] Pending Review 07/06/2023 07/05/2024 1 1 Specialty Diagnoses / Procedures Referred By Contac t Referred To Contact [facility] Diagnoses Medication exposure during first trimester of Procedures US [facility] with or without consult Frandy Zavala MD [address] [place] [address] [facility] [address] [place] [address] Referral ID Status Reason Start Date Expiration Date V isits Requested Visits Authorized [id number] Pending Review 07/06/2023 07/05/2024 1 1 Additional Source Comments Reason for Visit (unrecogniz ed section and content) Reason Comments Med Management Reason Comments Routine Visit Care Teams (unrecognized sec tion and content) Supervisor Loading Relationship Specialty Start Date End Date Pablo Lynch MD [address] [place], [place] [id number] PCP - General Family Medicine 01/11/23 FOR [...] BE BASED ON THE PRIMARY CLINICAL RECORDS. [facility]. provides no warranty or guarantee of the accuracy or completeness of information in this document.
--- NOTE | 2023-11-11 10:16 | US_ITS ---
[address] [address] Patient Name: EMIGDIO AMES MRN: [id number] date: 1995 Sex: F Assigned Patient Location: [facility] Current Patient Location: [facility] Accession/Order Number: [id number] Exam Date: 11/11/2023 10:24 Report Date: 11/11/2023 11:10 At the request of: SKYE GOINS Procedure: US OB BPP w non-stress EXAMINATION: US OB BPP w non-stress HISTORY: cat of 8.0 yesterday- repeat COMPARISON: No relevant comparison available. TECHNIQUE: Ultrasound biophysical profile was performed in the radiology department FINDINGS: BREATHING MOVEMENTS: 2.0 GROSS BODY MOVEMENTS: 2.0 TONE: 2.0 QUALITATIVE AMNIOTIC FLUID VOLUME: 2.0 PRESENTATION: CEPHALIC HEART RATE: 132.4 bpm H.B./min AMNIOTIC FLUID VOLUME: 6.8 cm cm GESTATIONAL AGE: 36 weeks 4 days CONCLUSION: Total biophysical profile score: 8.0 Oligohydramnios Electronically authenticated by: ZHEN MATT Date: 11/11/2023 11:10
[2023-11-11 10:54] VITALS: BP 128/87; PULSE 78
--- NOTE | 2023-11-11 12:00 | US_ITS ---
[address] [address] Patient Name: EMIGDIO AMES MRN: [id number] date: 1995 Sex: F Assigned Patient Location: [facility] Current Patient Location: Accession/Order Number: [id number] Exam Date: 11/11/2023 12:05 Report Date: 11/11/2023 12:49 At the request of: SKYE GOINS Procedure: US OB umbilical artery EXAMINATION: US OB umbilical artery HISTORY: low amniotic fluid COMPARISON: No relevant comparison available. TECHNIQUE: Duplex Doppler evaluation of the umbilical arteries. FINDINGS: position: Cephalic presentation, longitudinal lie Placenta: Anterior. Heart rate: 131 beats minute Proximal umbilical artery: PSV/EDV: 97/20 cm/s. Resistive index 0.71. Ratio 3.5. Mid umbilical artery PSV/EDV: 75/33 cm/s. Resistive index 0.56. Ratio 2.3 Distal umbilical artery PSV/EDV: 56/30 cm/s. Resistive index 0.47. Ratio 1.9 Forefoot identified throughout diastole Clinical age: 36 weeks 4 days Clinical GANESH: 12/05/2023 US/US OB umbilical artery IMPRESSION: Normal exam. Class 0 Umbilical Artery: Class 0 = Normal umbilical artery blood velocity Class I = increased RI or PI, but still forward flow in diastole Class II = Absent end diastolic flow (AEDF) Class III = Reversal of end diastolic flow (REDF) Resistive Index (RI)<1 Systolic/Diastolic ratio (S:D): An S:D ratio of 2-3 after 34 wks is normal Systolic/Diastolic ratio (S:D): Age 16: 3.01 for the 10th percentile, 4.25 for the 50th percentile, 6.07 for the 90th percentile Age 20: 3.16 for the 10th percentile, 4.04 for the 50th percentile, 5.24 for the 90th percentile Age 24: 2.70 for the 10th percentile, 3.50 for the 50th percentile, 4.75 for the 90th percentile Age 28: 2.41 for the 10th percentile, 3.02 for the 50th percentile, 3.97 for the 90th percentile Age 30: 2.43 for the 10th percentile, 3.04 for the 50th percentile, 3.80 for the 90th percentile Age 32: 2.27 for the 10th percentile, 2.73 for the 50th percentile, 3.57 for the 90th percentile Age 34: 2.08 for the 10th percentile, 2.52 for the 50th percentile, 3.41 for the 90th percentile Age 36: 1.96 for the 10th percentile, 2.35 for the 50th percentile, 3.15 for the 90th percentile Age 38: 1.89 for the 10th percentile, 2.24 for the 50th percentile, 3.10 for the 90th percentile Age 40: 1.88 for the 10th percentile, 2.22 for the 50th percentile, 2.68 for the 90th percentile Age 41: 1.93 for the 10th percentile, 2.21 for the 50th percentile, 2.55 for the 90th percentile Age 42: 1.91 for the 10th percentile, 2.51 for the 50th percentile, 3.21 for the 90th percentile Uteroplacental Artery: Resistive Index (RI): Normal=<0.55 High Resistance=Bilateral notches (after 26 wks) and RI>0.55. Unilateral notches (after 26 wks) and RI>0.65 Systolic/Diastolic ratio (S:D) = 2-3 is normal after 32 weeks. Electronically authenticated by: ZHEN MATT Date: 11/11/2023 12:49
== END 2023-11-11 12:41 | disposition home or self-care (01) ==
LOC: FBCO 06:58 → FBC 10:12
PROVIDERS: PCP Family Medicine; Visit Provider Obstetrics & Gynecology
DX: O26.893 Other specified pregnancy related conditions, third trimester (principal); Z3A.36 36 weeks gestation of pregnancy; O41.03X0 Oligohydramnios, third trimester, not applicable or unspecified
CPT/HCPCS: 76818; 76820

== ENCOUNTER 2023-11-15 06:55 | Outpatient (OUT) | payer OTHER, SELFPAY ==
--- OUTSIDE RECORDS SUMMARY | 2023-11-15 06:58 | XMS_ITS | CCD ---
Author Organization [facility] Inform ion Partnership [facility] Care Team Providers Care Museum Or Zoo Director Name Role Phone Unavailable Primary Care Provider [...] UA Negative Negative - 4(70) +++ mg/dL [facility] Blood, UA Negative Negative - 50 Jer/mcL [facility] Clarity, UA Clear [facility] Color, UA Yellow [facility] Glucose, UA Negative Negative - 1999(110) ++++ mg/dL [facility] Interpretation and review of laboratory results Abnormal [facility] Ketones, UA Negative Negative - 160(16) ++++ mg/dL [facility] Leukocytes, UA Positive Negative - 500+++ Aretha/mcL [facility] Nitrite, UA Negative Negative - Positive [facility] pH, UA 6.5 5 - 9 [facility] Protein, UA Negative Negative - 1999(20) ++++ mg/dL [facility] Spec Grav, UA 1.010 1 - 1.03 [facility] Urobilinogen, UA 0.2 0.2 - 12 mg/dL [facility] with or without consu lton 07-06-2023 [...] Final 07/06/2023 11:40) PATIENT INFO: ID #: [id number] : [birth year] (28 yrs)(F) Name: EIMGDIO VAZQUEZ Visit Date: 07/06/2023 10:12 PERFORMED BY: Attending: Frandy Zavala MD Performed By: Dinorah Rivers RDMS Referred By: Juan Weaver. Address: [address] [place] [address] [place] [address] Location: [facility] SERVICE(S) PROVIDED: Comprehensive Anatomic Survey 74018 OB Transvaginal 98894 INDICATIONS: Screening for anatomic survey Z36.89 Screening [...] document Interventr. Septum: Not well visualized Cardiac Muldrow: Appears normal Diaphragm: Not well visualized 3 Vessel View: Appears normal 3 V Trachea View: Not well visualized IVC: Could not document Crossing: Could not document Abdomen Ventral Wall: Appears normal Cord Insertion: Appears normal Situs: Ap (more content not included)... SECTRAPACS Frandy Zavala MD - 07/06/2023 OBSTETRICS REPORT (Signed Final 07/06/2023 11:40) PATIENT INFO: ID #: [id number] : [birth year] (28 yrs)(F) Name: EMIGDIO VAZQUEZ Visit Date: 07/06/2023 10:12 PERFORMED BY: Attending: Frandy Zavala MD Performed By: Dinorah Rivers RDMS Referred By: Juan Palafox DO Ref. Address: [address] [place] [address] [place] [address] Location: [facility] SERVICE(S) PROVIDED: Comprehensive Anatomic Survey 62727 OB Transvaginal 12793 INDICATIONS: Screening for anatomic survey Z36.89 Screening [...] document Interventr. Septum: Not well visualized Cardiac Muldrow: Appears normal Diaphragm: Not well visualized 3 [...] diagnostic for feta (more content not included)... [facility] Radiology Study observation (narrative) [facility] Unlisted Genetic Teston 05-01 SEE SCANNED REPORT MANUAL LY TRANSCRIBED RESULTS [facility] HIV 1&2 AB/AG Screen (P24 AG )on 05-18-2023 HIV 1&2 AB/AG Non-Reactive [facility] Hepatitis B surface antigeno n 05-18-2023 Hepatitis B Surface Antigen Negative [facility] No Panel Informationon 05-18 [facility] Rubella IGG immune statuson 05-18-2023 Rubella immune IgG immune [facility] Syphilis Total(Unknown Syphi lis Status)on 05-18-2023 Syphilis Non-Reactive [facility] TSHon 05-14-2023 Thyroid Stimulating (3Rd Generation) Hormone/ Tsh 1.303 [facility] Ultrasound officeon 05-14-20 23 SEE SCANNED REPORT MANUAL LY TRANSCRIBED RESULTS [facility] Radiology Study observation (narrative) [facility] Vital Signs Date Time Vital Sign Value Performing Clinician Faci lity 07-14-2023 09:45-0500 Body weight 64.77 kg Geovanna HUIZAR Work Phone: [facility] 07-14-2023 09:45-0500 Diastolic blood pressure 70 mm[Hg] Geovanna HUIZAR Work Phone: [facility] 07-14-2023 09:45-0500 Systolic blood pressure 112 mm[Hg] Geovanna HUIZAR Work Phone: [facility] 07-06-2023 10:17-0500 Body height 162.6 cm Frandy Zavala MD Work Phone: [facility] 07-06-2023 10:17-0500 Body mass index (BMI) [Ratio] 24.2 kg/m2 Frandy Zavala MD Work Phone: [facility] 07-06-2023 10:17-0500 Body weight 63.96 kg Frandy Zavala MD Work Phone: [facility] 07-06-2023 10:17-0500 Diastolic blood pressure 82 mm[Hg] Frandy Zavala MD Work Phone: [facility] 07-06-2023 10:17-0500 Heart rate 88 /min Frandy Zavala MD Work Phone: [facility] 07-06-2023 10:17-0500 Systolic blood pressure 127 mm[Hg] Frandy Zavala MD Work Phone: [facility] Encounters Encounter Date Encounter Type Care Provider Facility Start: 07-14-2023 End: 07-14-2023 flow sheet Geovanna HUIZAR Work Phone: [facility] Comment on above: Second trimester pre gnancy Start: 07-06-2023 End: 07-06-2023 Office consultation new/estab patient 60 min Frandy Zavala MD Work Phone: [facility] Comment on above: 18 weeks gestation o f (Primary Dx); Attention deficit hyperactivity disorder (ADHD), unspecified ADHD type; Depression affecting ; Medication exposure during first trimester of ; Encounter for anatomic survey Start: 06-18-2023 Chart abstracting Frandy chilel MD Work Phone: [facility] Procedures Date Procedure Procedure Detail Performing Clinician [...] Adult BMI Screening Adult BMI Screen ing [facility] Start: 07-06-2024 Tobacco Screening Tobacco Screening [facility] Start: 07-06-2024 End: 07-06-2024 US MFM with or without consult US MFM with or without consult Imaging Routine Encounter for anatomic survey Expected: 07/06/2024 (Approximate), Expires: 07/06/2024 [facility] Work Phone: Comment on above: Expected: 07/06/2024 (Approximate), Expires: 07/06/2024 Start: 08-12-2023 End: 08-12-2023 Patient encounter procedure 08/12/2023 2:15 PM EDT Appointment [facility] [address] [place] [address] [facility] Start: 08-11-2023 End: 08-11-2023 Patient encounter procedure 08/11/2023 1:50 PM EDT Routine [facility] [address] [place] [address] Juan Palafox, [address] [place] [address] [facility] Start: 07-06-2023 End: 07-06-2023 Patient encounter procedure 07/06/2023 10:30 AM EST Office Visit [facility] [address] [place] [address] Frandy Zavala MD [address] [address] [facility] Start: 07-06-2023 End: 07-06-2023 Patient encounter procedure 07/06/2023 9:15 AM EST Appointment [facility] [address] [place] [address] [facility] Start: 01-29-2023 COVID-19 Vaccine ( season) COVID-19 Vaccine ( season) [facility] Start: 01-29-2023 Influenza vaccination Influenza Vacc ine [facility] Start: 01-03-2017 DTaP,Tdap and Td Vaccines (7 - Td or Tdap) DTaP,Tdap and Td Vaccines (7 - Td or Tdap) [facility] Start: 2015 Screening for malign ant neoplasm of cervix Pap Smear [facility] Start: 2013 DTaP,Tdap and Td Vaccines (1 - Tdap) DTaP,Tdap and Td Vaccines (1 - Tdap) [facility] Start: 02-05-2012 Adult BMI Screening Adult BMI Screen ing [facility] Start: 2006 Depression Screening Depression Scre ening [facility] Start: 2006 Tobacco Screening Tobacco Screening [facility] Payers Date Payer Category Payer Unknown [id number] Social History Date Type Detail Facility Start: 06-18-2023 Tobacco smoking stat [facility] Tobacco smoking consumption unknown [facility] Start: 03-11-2023 [facility] Start: 1995 Sex Assigned At Female P [facility] Start: 12-03-2022 Gender identity Identifies as female gender (finding) [facility] Start: 07-06-2023 Sexual orientation Not on file [facility] Start: 07-06-2023 Tobacco smoking stat [facility] Ex-smoker [facility] History of tobacco use Current smoker [facility] History of tobacco use Cigarette Smoker [facility] Start: 07-06-2023 Tobacco use and exposure Smoke less tobacco non-user [facility] Start: 07-06-2023 Alcohol intake Ex-drinker (finding) [facility] Start: 07-06-2023 History of Social function [facility] Within the past 12 months we worried whether our food would run out before we got money to buy more. Never True [facility] History of Present illness Narrative 07-14-2023 [...] Medication exposure during first trimester of - [facility] with or without consult; Future I reviewed [...] 3.3, 95% CI = [1.1, 9.6]) [PMID: 03150357]. Also methamphetamine exposure during has been associated with maternal and morbidity and mortality. In studies that controlled for confounders, methamphetamine exposure was associated with a two- to fourfold increase in risk of growth restriction, gestational hypertension, preeclampsia, abruption, , intrauterine demise, , and . [PMIDs: 21865901; 12351868;95532355] A meta-analysis of eight studies that compared outcomes for females using methamphetamines with control individuals also reported younger gestational age at , lower weight, smaller head circumference, shorter body length, and lower scores for exposed infants. The meta-analysis did not find significant differences in the rates of preeclampsia and hypertensive disorders. [PMID 01850243]. Amphetamines, including methamphetamine, are excreted into breast [...] reserve section for routine indications Notified the medical lab technologist about medication exposure Plan reviewed with patient. She vocalized understanding all questions answered. The patient is to continue with routine care in your office Thank you for allowing me to participate in her care. Please contact me if you have any concerns. Frandy Zavala MD, FACOG (she/hers) [facility] [address] [facility] [address] [place] [address] This document was created with [employer] technology. Though I make every effort to review the dictation as it is transcribed, on occasion the spoken word can be misinterpreted by the technology leading to inappropriate words, phrases, or sentences. This note is addressed to the requesting provider as a consultation for clinical guidance. Specific medical abbreviations are occasionally used and those are generally approved by the [place]?Board of?Obstetrics and?Gynecology?as well as?Kimmie dennison abbreviations. The above plan of care was based solely on the diagnoses for which a consultation was requested. ?More frequent testing may be indicated based on her other medical/obstetrical conditions. The management of other or medical conditions is beyond the scope of requested consultation and will continue to be followed by the primary escrow manager or primary care provider. Note to patient: [...] Have you been seen here at [facility] in a previous ? N/a Recent ER visits or hospitalizations? no Bring blood sugar log or meter with you today? (Please bring them with you for every visit at [facility]) n/a Traveled outside the country in the past 6 month no Any concerns that you would like me to mention to the provider today? no documented in this encounter [employer] [facility] Instructions 07-06-2023 Patient Instructions Note Date & Type Note Facility 07-06-2023 Instructions Frandy Zavala MD - 07/06/2023 10:30 AM EST [email or web address] documented in this encounter [employer] [facility] Evaluation note Note Date & Type Note Facility Evaluation note Diagnosis 18 weeks gestation of - Primary Attention deficit hyperactivity disorder (ADHD), unspecified ADHD type Depression affecting Medication exposure during first trimester of Supervision of other high-risk Encounter for anatomic survey documented in this encounter [employer] [facility] Evaluation note Note Date & Type Note Facility Evaluation note Diagnosis Second trimester state, incidental documented in this encounter [facility] Instructions Note Date & Type Note Facility Instructions Not on filedocumented in this en counter [facility] Reason for Referral Specialty Diagnoses / Procedures Referred By Contac t Referred To Contact [facility] Diagnoses Encounter for anatomic survey Procedures [facility]FM with or without consult Frandy Zavala MD [address], [address] [place] [address] [facility] [address] [place] [address] Referral ID Status Reason Start Date Expiration Date V isits Requested Visits Authorized [id number] Pending Review 07/06/2023 07/05/2024 1 1 Specialty Diagnoses / Procedures Referred By Contac t Referred To Contact [facility] Diagnoses Medication exposure during first trimester of Procedures US MFM with or without consult Frandy Zavala MD [address] [place] [address] [facility] [address] [place] [address] Referral ID Status Reason Start Date Expiration Date V isits Requested Visits Authorized [id number] Pending Review 07/06/2023 07/05/2024 1 1 Additional Source Comments Reason for Visit (unrecogniz ed section and content) Reason Comments Med Management Reason Comments Routine Visit Care Teams (unrecognized sec tion and content) Museum [facility] Director Relationship Specialty Start Date End Date Pablo Lynch MD [address] [place], [place] [id number] PCP - General Family Medicine 01/11/23 FOR [...] BE BASED ON THE PRIMARY CLINICAL RECORDS. [facility] [employer] [facility]. provides no warranty or guarantee of the accuracy or completeness of information in this document.
--- NOTE | 2023-11-15 09:02 | US_ITS ---
[address] [address] Patient Name: EMIGDIO AMES MRN: [id number] date: 1995 Sex: F Assigned Patient Location: US Current Patient Location: Accession/Order Number: [id number] Exam Date: 11/15/2023 09:03 Report Date: 11/15/2023 10:12 At the request of: SKYE GOINS Procedure: US OB BPP w non-stress EXAMINATION: US OB BPP w non-stress HISTORY: History of ADHD medication. COMPARISON: Ultrasound OB biophysical 11/11/2023 TECHNIQUE: Ultrasound biophysical profile was performed in the radiology department. BREATHING MOVEMENTS: 2.0 GROSS BODY MOVEMENTS: 2.0 TONE: 2.0 QUALITATIVE AMNIOTIC FLUID VOLUME: 2.0 PRESENTATION: CEPHALIC HEART RATE: 107.2 bpm bpm. AMNIOTIC FLUID VOLUME: 7.0 cm GESTATIONAL AGE: 37 weeks 1 days CONCLUSION: 1. Total biophysical profile score 8.0. 2. Heart rate was seen as low as 81 bpm, but returned to 131 bpm. Electronically authenticated by: CHRISTINA ERAZO Date: 11/15/2023 10:12
[2023-11-15 09:29] VITALS: BP 125/83; PULSE 86
== END 2023-11-15 10:08 | disposition home or self-care (01) ==
LOC: US 06:56 → FBC 09:03
PROVIDERS: PCP Family Medicine; Visit Provider Obstetrics & Gynecology
DX: F15.10 Other stimulant abuse, uncomplicated (principal); Z3A.37 37 weeks gestation of pregnancy
CPT/HCPCS: 76818

== ENCOUNTER 2023-11-19 08:07 | Outpatient (OUT) | payer OTHER, SELFPAY ==
--- NOTE | 2023-11-19 08:09 | US_ITS ---
[address] [address] Patient Name: EMIGDIO AMES MRN: [id number] date: 1995 Sex: F Assigned Patient Location: [facility] Current Patient Location: [facility] Accession/Order Number: [id number] Exam Date: 11/19/2023 08:09 Report Date: 11/19/2023 09:46 At the request of: SKYE GOINS Procedure: US OB BPP wo non-stress EXAMINATION: US OB BPP wo non-stress HISTORY: ADDERALL USE IN COMPARISON: No relevant comparison available. TECHNIQUE: Ultrasound biophysical profile was performed in the radiology department. FINDINGS: BREATHING MOVEMENTS: 2 GROSS BODY MOVEMENTS: 2 TONE: 2 QUALITATIVE AMNIOTIC FLUID VOLUME: 2 PRESENTATION: CEPHALIC HEART RATE: 139 bpm AMNIOTIC FLUID VOLUME: 7.28 cm GESTATIONAL AGE: 37 weeks 5 days US/US OB BPP wo non-stress IMPRESSION: Total biophysical profile score: 8 Electronically authenticated by: ZHEN MATT Date: 11/19/2023 09:46
--- OUTSIDE RECORDS SUMMARY | 2023-11-19 08:12 | XMS_ITS | CCD ---
Author Organization [facility] Inform ion Partnership [facility] Care Team Providers Care Kiln Transfer Operator Name Role Phone Unavailable Primary Care Provider Pablo Hansen MD Primary Care Provider [phone] Medications Current Medications Medication Drug Class(es) Dates [...] Negative - 4(70) +++ mg/dL [facility] Blood, UA Negative Negative - 50 Jer/mcL [facility] Clarity, UA Clear [facility] Color, UA Yellow [facility] Glucose, UA Negative Negative - 1999(110) ++++ mg/dL [facility] Interpretation and review of laboratory results Abnormal [facility] Ketones, UA Negative Negative - 160(16) ++++ mg/dL [facility] Leukocytes, UA Positive Negative - 500+++ Aretha/mcL [facility] Nitrite, UA Negative Negative - Positive [facility] pH, UA 6.5 5 - 9 [facility] Protein, UA Negative Negative - 1999(20) ++++ mg/dL [facility] Spec Grav, UA 1.010 1 - 1.03 [facility] Urobilinogen, UA 0.2 0.2 - 12 mg/dL [facility] with or without consu lton 07-06-2023 [...] Final 07/06/2023 11:40) PATIENT INFO: ID #: [id number] : [birth year] (28 yrs)(F) Name: EMIGDIO VAZQUEZ Visit Date: 07/06/2023 10:12 PERFORMED BY: Attending: Frandy Zavala MD Performed By: Dinorah Rivers RDMS Referred By: Juan Weaver. Address: [address] [place] [address] [place] [address] [facility] SERVICE(S) PROVIDED: Comprehensive Anatomic Survey 82721 OB Transvaginal [id number] INDICATIONS: Screening for anatomic survey Z36.89 Screening [...] document Interventr. Septum: Not well visualized Cardiac Lenox: Appears normal Diaphragm: Not well visualized 3 Vessel View: Appears normal 3 V Trachea View: Not well visualized IVC: Could not document Crossing: Could not document Abdomen Ventral Wall: Appears normal Cord Insertion: Appears normal Situs: Ap (more content not included)... SECTRAPACS Frandy Zavala MD - 07/06/2023 OBSTETRICS REPORT (Signed Final 07/06/2023 11:40) PATIENT INFO: ID #: [id number] : [birth year] (28 yrs)(F) Name: EMIGDIO VAZQUEZ Visit Date: 07/06/2023 10:12 PERFORMED BY: Attending: Frandy Zavala MD Performed By: Dinorah Rivers RDMS Referred By: Juan Weaver. Address: [address] [place] [address] [place] [address] Location: [facility] SERVICE(S) PROVIDED: Comprehensive Anatomic Survey 26855 OB Transvaginal 17438 INDICATIONS: Screening for anatomic survey Z36.89 Screening [...] document Interventr. Septum: Not well visualized Cardiac Lenox: Appears normal Diaphragm: Not well visualized 3 [...] diagnostic for feta (more content not included)... [facility] Radiology Study observation (narrative) [facility] Unlisted Genetic Teston 05-01 SEE SCANNED REPORT MANUAL LY TRANSCRIBED RESULTS [facility] HIV 1&2 AB/AG Screen (P24 AG )on 05-18-2023 HIV 1&2 AB/AG Non-Reactive [facility] Hepatitis B surface antigeno n 05-18-2023 Hepatitis B Surface Antigen Negative [facility] No Panel Informationon 05-18 [facility] Rubella IGG immune statuson 05-18-2023 Rubella immune IgG immune [facility] Syphilis Total(Unknown Syphi lis Status)on 05-18-2023 Syphilis Non-Reactive [facility] TSHon 05-14-2023 Thyroid Stimulating (3Rd Generation) Hormone/ Tsh 1.303 [facility] Ultrasound officeon 05-14-20 23 SEE SCANNED REPORT MANUAL LY TRANSCRIBED RESULTS [facility] Radiology Study observation (narrative) [facility] Vital Signs Date Time Vital Sign Value Performing Clinician Faci lity 07-14-2023 09:45-0500 Body weight 64.77 kg Geovanna HUIZAR Work Phone: [facility] 07-14-2023 09:45-0500 Diastolic blood pressure 70 mm[Hg] Geovanna HUIZAR Work Phone: [facility] 07-14-2023 09:45-0500 Systolic blood pressure 112 mm[Hg] Geovanna HUIZAR Work Phone: [facility] 07-06-2023 10:17-0500 Body height 162.6 cm Frandy Zavala MD Work Phone: [facility] 07-06-2023 10:17-0500 Body mass index (BMI) [Ratio] 24.2 kg/m2 Frandy Zavala MD Work Phone: [facility] 07-06-2023 10:17-0500 Body weight 63.96 kg Frandy Zavala MD Work Phone: [facility] 07-06-2023 10:17-0500 Diastolic blood pressure 82 mm[Hg] Frandy Zavala MD Work Phone: [facility] 07-06-2023 10:17-0500 Heart rate 88 /min Frandy Zavala MD Work Phone: [facility] 07-06-2023 10:17-0500 Systolic blood pressure 127 mm[Hg] Frandy Zavala MD Work Phone: [facility] Encounters Encounter Date Encounter Type Care Provider Facility Start: 07-14-2023 End: 07-14-2023 flow sheet Geovanna HUIZAR Work Phone: [facility] Comment on above: Second trimester pre gnancy Start: 07-06-2023 End: 07-06-2023 Office consultation new/estab patient 60 min Frandy Zavala MD Work Phone: [facility] Comment on above: 18 weeks gestation o f (Primary Dx); Attention deficit hyperactivity disorder (ADHD), unspecified ADHD type; Depression affecting ; Medication exposure during first trimester of ; Encounter for anatomic survey Start: 06-18-2023 Chart abstracting Frandy chilel MD Work Phone: [facility] Procedures Date Procedure Procedure Detail Performing Clinician [...] Adult BMI Screening Adult BMI Screen ing [facility] Start: 07-06-2024 Tobacco Screening Tobacco Screening [facility] Start: 07-06-2024 End: 07-06-2024 US MFM with or without consult US MFM with or without consult Imaging Routine Encounter for anatomic survey Expected: 07/06/2024 (Approximate), Expires: 07/06/2024 [facility] Work Phone: Comment on above: Expected: 07/06/2024 (Approximate), Expires: 07/06/2024 Start: 08-12-2023 End: 08-12-2023 Patient encounter procedure 08/12/2023 2:15 PM EDT Appointment [facility] [address] [place] [address] [facility] Start: 08-11-2023 End: 08-11-2023 Patient encounter procedure 08/11/2023 1:50 PM EDT Routine [facility] [address] [place] [address] Juan Palafox DO [address] [place] [address] [facility] Start: 07-06-2023 End: 07-06-2023 Patient encounter procedure 07/06/2023 10:30 AM EST Office Visit [facility] [address] [place] [address] Frandy Zavala MD [address] [address] [facility] Start: 07-06-2023 End: 07-06-2023 Patient encounter procedure 07/06/2023 9:15 AM EST Appointment [facility] [address] [place] [address] [facility] Start: 01-29-2023 COVID-19 Vaccine ( season) COVID-19 Vaccine ( season) [facility] Start: 01-29-2023 Influenza vaccination Influenza Vacc ine [facility] Start: 01-03-2017 DTaP,Tdap and Td Vaccines (7 - Td or Tdap) DTaP,Tdap and Td Vaccines (7 - Td or Tdap) [facility] Start: 2015 Screening for malign ant neoplasm of cervix Pap Smear [facility] Start: 2013 DTaP,Tdap and Td Vaccines (1 - Tdap) DTaP,Tdap and Td Vaccines (1 - Tdap) [facility] Start: 02-05-2012 Adult BMI Screening Adult BMI Screen ing [facility] Start: 2006 Depression Screening Depression Scre ening [facility] Start: 2006 Tobacco Screening Tobacco Screening [facility] Payers Date Payer Category Payer Unknown [id number] Social History Date Type Detail Facility Start: 06-18-2023 Tobacco smoking stat [facility] Tobacco smoking consumption unknown [facility] Start: 03-11-2023 [facility] Start: 1995 Sex Assigned At Female [facility] Start: 12-03-2022 Gender identity Identifies as female gender (finding) [facility] Start: 07-06-2023 Sexual orientation Not on file [facility] Start: 07-06-2023 Tobacco smoking stat [facility] Ex-smoker [facility] History of tobacco use Current smoker [facility] History of tobacco use Cigarette Smoker [facility] Start: 07-06-2023 Tobacco use and exposure Smoke less tobacco non-user [facility] Start: 07-06-2023 Alcohol intake Ex-drinker (finding) [facility] Start: 07-06-2023 History of Social function [facility] Within the past 12 months we worried whether our food would run out before we got money to buy more. Never True [facility] History of Present illness Narrative 07-14-2023 [...] 3.3, 95% CI = [1.1, 9.6]) [PMID: 90133358]. Also methamphetamine exposure during has been associated with maternal and morbidity and mortality. In studies that controlled for confounders, methamphetamine exposure was associated with a two- to fourfold increase in risk of growth restriction, gestational hypertension, preeclampsia, abruption, , intrauterine demise, , and . [PMIDs: 27838354; 86844920;51008772] A meta-analysis of eight studies that compared outcomes for females using methamphetamines with control individuals also reported younger gestational age at , lower weight, smaller head circumference, shorter body length, and lower scores for exposed infants. The meta-analysis did not find significant differences in the rates of preeclampsia and hypertensive disorders. [PMID 25294061]. Amphetamines, including methamphetamine, are excreted into breast [...] reserve section for routine indications Notified the moth proofer about medication exposure Plan reviewed with patient. She vocalized understanding all questions answered. The patient is to continue with routine care in your office Thank you for allowing me to participate in her care. Please contact me if you have any concerns. Frandy Zavala MD, FACOG (she/hers) Maternal- Medicine [facility] [address] [place] [address] This document was created with [employer] technology. Though I make every effort to review the dictation as it is transcribed, on occasion the spoken word can be misinterpreted by the technology leading to inappropriate words, phrases, or sentences. This note is addressed to the requesting provider as a consultation for clinical guidance. Specific medical abbreviations are occasionally used and those are generally approved by the [place]?Board of?Obstetrics and?Gynecology?as well as?Kimmie dennison abbreviations. The above plan of care was based solely on the diagnoses for which a consultation was requested. ?More frequent testing may be indicated based on her other medical/obstetrical conditions. The management of other or medical conditions is beyond the scope of requested consultation and will continue to be followed by the primary sales engineer engineered products or primary care provider. Note to patient: [...] yes Have you been seen here at [facility] in a previous ? N/a Recent ER visits or hospitalizations? no Bring blood sugar log or meter with you today? (Please bring them with you for every visit at [facility]) n/a Traveled outside the country in the past 6 month no Any concerns that you would like me to mention to the provider today? no documented in this encounter [facility] Instructions 07-06-2023 Patient Instructions Note Date & Type Note Facility 07-06-2023 Instructions Frandy Zavala MD - 07/06/2023 10:30 AM EST [email or web address] documented in this encounter [facility] note Note Date & Type Note Facility Evaluation note Diagnosis 18 weeks gestation of - Primary Attention deficit hyperactivity disorder (ADHD), unspecified ADHD type Depression affecting Medication exposure during first trimester of Supervision of other high-risk Encounter for anatomic survey [facility] this encounter [facility] Evaluation note Note Date & Type Note Facility Evaluation note Diagnosis Second trimester state, incidental documented in this encounter [facility] Instructions Note Date & Type Note Facility Instructions Not on filedocumented in this en counter [facility] Reason for Referral Specialty Diagnoses / Procedures Referred By Contac t Referred To Contact [facility] Diagnoses Encounter for anatomic survey Procedures [facility] with or without consult Frandy Zavala MD [address], [address] [place] [address] [facility] [address] [place] [address] Referral ID Status Reason Start Date Expiration Date V isits Requested Visits Authorized [id number] Pending Review 07/06/2023 07/05/2024 1 1 Specialty Diagnoses / Procedures Referred By Contren t Referred To Contact [facility] Diagnoses Medication exposure during first trimester of Procedures [facility] with or without consult Frandy Zavala MD [address] [place] [address] [facility] [address] [place] [address] Referral ID Status Reason Start Date Expiration Date V isits Requested Visits Authorized [id number] Pending Review 07/06/2023 07/05/2024 1 1 Additional Source Comments Reason for Visit (unrecogniz ed section and content) Reason Comments Med Management Reason Comments Routine Visit Care Teams (unrecognized sec tion and content) Kiln Transfer Operator Relationship Specialty Start Date End Date Pablo Lynch MD [address] [place], [place] [id number] PCP - General Family Medicine 01/11/23 FOR [...] BE BASED ON THE PRIMARY CLINICAL RECORDS. [facility] [employer] [facility]. provides no warranty or guarantee of the accuracy or completeness of information in this document.
== END 2023-11-19 08:08 | disposition home or self-care (01) ==
LOC: NOMS 08:07
PROVIDERS: PCP Family Medicine; Visit Provider Obstetrics & Gynecology
DX: F15.10 Other stimulant abuse, uncomplicated (principal); Z3A.37 37 weeks gestation of pregnancy
CPT/HCPCS: 76819

== ENCOUNTER 2023-11-20 10:18 | Outpatient (OUT) | payer OTHER, SELFPAY ==
--- OUTSIDE RECORDS SUMMARY | 2023-11-20 10:21 | XMS_ITS | CCD ---
Author Organization [facility] Inform ion Partnership [facility] Care Team Providers Care Bindery Leadperson Name Role Phone Unavailable Primary Care Provider Pablo Hansen MD Primary Care Provider [phone] Medications Current Medications Medication Drug Class(es) Dates [...] [facility] pH, UA 6.5 5 - 9 [facility] Protein, UA Negative Negative - 1999(20) ++++ mg/dL [facility] Spec Grav, UA 1.010 1 - 1.03 [facility] Urobilinogen, UA 0.2 0.2 - 12 mg/dL [facility] with or without consu lton 07-06-2023 IMPRESSION: [...] Final 07/06/2023 11:40) PATIENT INFO: ID #: [id number] : [birth year] (28 yrs)(F) Name: EMIGDIO VAZQUEZ Visit Date: 07/06/2023 10:12 PERFORMED BY: Attending: Frandy Zavala MD Performed By: Dinorah Rivers RDMS Referred By: Juan Weaver. Address: [address] [place] [address] [place] [address] [facility] SERVICE(S) PROVIDED: Comprehensive Anatomic Survey 60085 OB Transvaginal 66994 INDICATIONS: Screening for anatomic survey Z36.89 Screening [...] document Interventr. Septum: Not well visualized Cardiac [place]: Appears normal Diaphragm: Not well visualized 3 Vessel View: Appears normal 3 V Trachea View: Not well visualized IVC: Could not document Crossing: Could not document Abdomen Ventral Wall: Appears normal Cord Insertion: Appears normal Situs: Ap (more content not included)... SECTRAPACS Frandy Zavala MD - 07/06/2023 OBSTETRICS REPORT (Signed Final 07/06/2023 11:40) PATIENT INFO: ID #: [id number] : [birth year] (28 yrs)(F) Name: EMIGDIO VAZQUEZ Visit Date: 07/06/2023 10:12 PERFORMED BY: Attending: Frandy Zavala MD Performed By: Dinorah Rivers RDMS Referred By: Juan Weaver. Address: [address] [place] [address] [place] [address] Location: [facility] SERVICE(S) PROVIDED: Comprehensive Anatomic Survey 33224 OB Transvaginal 26038 INDICATIONS: Screening for anatomic survey Z36.89 Screening [...] document Interventr. Septum: Not well visualized Cardiac [place]: Appears normal Diaphragm: Not well visualized 3 [...] diagnostic for feta (more content not included)... [facility] Radiology Study observation (narrative) [facility] Unlisted Genetic Teston 05-01 SEE SCANNED REPORT MANUAL LY TRANSCRIBED RESULTS [facility] HIV 1&2 AB/AG Screen (P24 AG )on 05-18-2023 HIV 1&2 AB/AG Non-Reactive [facility] Hepatitis B surface antigeno n 05-18-2023 Hepatitis B Surface Antigen Negative [facility] No Panel Informationon 05-18 [facility] Rubella IGG immune statuson 05-18-2023 Rubella immune IgG immune [facility] Syphilis Total(Unknown Syphi lis Status)on 05-18-2023 Syphilis Non-Reactive [facility] TSHon 05-14-2023 Thyroid Stimulating (3Rd Generation) Hormone/ Tsh 1.303 [facility] Ultrasound officeon 05-14-20 23 SEE SCANNED REPORT MANUAL LY TRANSCRIBED RESULTS [facility] Radiology Study observation (narrative) [facility] Vital Signs Date Time Vital Sign Value Performing Clinician Faci lity 07-14-2023 09:45-0500 Body weight 64.77 kg Geovanna HUIZAR Work Phone: [facility] 07-14-2023 09:45-0500 Diastolic blood pressure 70 mm[Hg] Geovanna HUIZAR Work Phone: [facility] 07-14-2023 09:45-0500 Systolic blood pressure 112 mm[Hg] Geovanna HUIZAR Work Phone: [facility] 07-06-2023 10:17-0500 Body height 162.6 cm Frandy Zavala MD Work Phone: [facility] 07-06-2023 10:17-0500 Body mass index (BMI) [Ratio] 24.2 kg/m2 Frandy Zavala MD Work Phone: [facility] 07-06-2023 10:17-0500 Body weight 63.96 kg Frandy Zavala MD Work Phone: [facility] 07-06-2023 10:17-0500 Diastolic blood pressure 82 mm[Hg] Frandy Zavala MD Work Phone: [facility] 07-06-2023 10:17-0500 Heart rate 88 /min Frandy Zavala MD Work Phone: [facility] 07-06-2023 10:17-0500 Systolic blood pressure 127 mm[Hg] Frandy Zavala MD Work Phone: [facility] Encounters Encounter Date Encounter Type Care Provider Facility Start: 07-14-2023 End: 07-14-2023 flow sheet Geovanna HUIZAR Work Phone: [facility] Comment on above: Second trimester pre gnancy Start: 07-06-2023 End: 07-06-2023 Office consultation new/estab patient 60 min Frandy Zavala MD Work Phone: [facility] Comment on above: 18 weeks gestation o f (Primary Dx); Attention deficit hyperactivity disorder (ADHD), unspecified ADHD type; Depression affecting ; Medication exposure during first trimester of ; Encounter for anatomic survey Start: 06-18-2023 Chart abstracting Frandy chilel MD Work Phone: [facility] Procedures Date Procedure Procedure Detail Performing Clinician [...] Adult BMI Screening Adult BMI Screen ing [facility] Start: 07-06-2024 Tobacco Screening Tobacco Screening [facility] Start: 07-06-2024 End: 07-06-2024 US MFM with or without consult US MFM with or without consult Imaging Routine Encounter for anatomic survey Expected: 07/06/2024 (Approximate), Expires: 07/06/2024 [facility] Work Phone: Comment on above: Expected: 07/06/2024 (Approximate), Expires: 07/06/2024 Start: 08-12-2023 End: 08-12-2023 Patient encounter procedure 08/12/2023 2:15 PM EDT Appointment [facility] [address] [place] [address] [facility] Start: 08-11-2023 End: 08-11-2023 Patient encounter procedure 08/11/2023 1:50 PM EDT Routine [facility] [address] [place] [address] Juan Palafox DO [address] [place] [address] [facility] Start: 07-06-2023 End: 07-06-2023 Patient encounter procedure 07/06/2023 10:30 AM EST Office Visit [facility] [address] [place] [address] Frandy Zavala MD [address] [address] [facility] Start: 07-06-2023 End: 07-06-2023 Patient encounter procedure 07/06/2023 9:15 AM EST Appointment [facility] [address] [place] [address] [facility] Start: 01-29-2023 COVID-19 Vaccine ( season) COVID-19 Vaccine ( season) [facility] Start: 01-29-2023 Influenza vaccination Influenza Vacc ine [facility] Start: 01-03-2017 DTaP,Tdap and Td Vaccines (7 - Td or Tdap) DTaP,Tdap and Td Vaccines (7 - Td or Tdap) [facility] Start: 2015 Screening for malign ant neoplasm of cervix Pap Smear [facility] Start: 2013 DTaP,Tdap and Td Vaccines (1 - Tdap) DTaP,Tdap and Td Vaccines (1 - Tdap) [facility] Start: 02-05-2012 Adult BMI Screening Adult BMI Screen ing [facility] Start: 2006 Depression Screening Depression Scre ening [facility] Start: 2006 Tobacco Screening Tobacco Screening [facility] Payers Date Payer Category Payer Unknown [id number] Social History Date Type Detail Facility Start: 06-18-2023 Tobacco smoking stat [facility] Tobacco smoking consumption unknown [facility] Start: 03-11-2023 [facility] Start: 1995 Sex Assigned At Female P [facility] Start: 12-03-2022 Gender identity Identifies as female gender (finding) [facility] Start: 07-06-2023 Sexual orientation Not on file [facility] Start: 07-06-2023 Tobacco smoking stat [facility] Ex-smoker [facility] History of tobacco use Current smoker [facility] History of tobacco use Cigarette Smoker P [facility] Start: 07-06-2023 Tobacco use and exposure Smoke less tobacco non-user [facility] Start: 07-06-2023 Alcohol intake Ex-drinker (finding) [facility] Start: 07-06-2023 History of Social function [facility] Within the past 12 months we worried whether our food would run out before we got money to buy more. Never True [facility] History of Present illness Narrative 07-14-2023 BHUPENDRA [...] Medication exposure during first trimester of - [facility] with or without consult; Future I reviewed [...] 3.3, 95% CI = [1.1, 9.6]) [PMID: 79044464]. Also methamphetamine exposure during has been associated with maternal and morbidity and mortality. In studies that controlled for confounders, methamphetamine exposure was associated with a two- to fourfold increase in risk of growth restriction, gestational hypertension, preeclampsia, abruption, , intrauterine demise, , and . [PMIDs: 00106409; 83482975;[id number]] A meta-analysis of eight studies that compared outcomes for females using methamphetamines with control individuals also reported younger gestational age at , lower weight, smaller head circumference, shorter body length, and lower scores for exposed infants. The meta-analysis did not find significant differences in the rates of preeclampsia and hypertensive disorders. [PMID 46501451]. Amphetamines, including methamphetamine, are excreted into breast [...] reserve section for routine indications Notified the acoustical logging engineer about medication exposure Plan reviewed with patient. She vocalized understanding all questions answered. The patient is to continue with routine care in your office Thank you for allowing me to participate in her care. Please contact me if you have any concerns. Frandy Zavala MD, FACOG (she/hers) Maternal- Medicine [facility] [address] [place] [address] This document was created with [employer] technology. Though I make every effort to review the dictation as it is transcribed, on occasion the spoken word can be misinterpreted by the technology leading to inappropriate words, phrases, or sentences. This note is addressed to the requesting provider as a consultation for clinical guidance. Specific medical abbreviations are occasionally used and those are generally approved by the [place]?Board of?Obstetrics and?Gynecology?as well as?Kimmie dennison abbreviations. The above plan of care was based solely on the diagnoses for which a consultation was requested. ?More frequent testing may be indicated based on her other medical/obstetrical conditions. The management of other or medical conditions is beyond the scope of requested consultation and will continue to be followed by the primary mandrel maker or primary care provider. Note to patient: [...] yes Have you been seen here at [facility] in a previous ? N/a Recent ER visits or hospitalizations? no Bring blood sugar log or meter with you today? (Please bring them with you for every visit at [facility]) n/a Traveled outside the country in the past 6 month no Any concerns that you would like me to mention to the provider today? no documented in this encounter [facility] Instructions 07-06-2023 Patient Instructions Note Date & Type Note Facility 07-06-2023 Instructions Frandy Zavala MD - 07/06/2023 10:30 AM EST [email or web address] documented [facility] Note Date & Type Note Facility Evaluation note Diagnosis 18 weeks gestation of - Primary Attention deficit hyperactivity disorder (ADHD), unspecified ADHD type Depression affecting Medication exposure during first trimester of Supervision of other high-risk Encounter for anatomic survey [facility] Note Date & Type Note Facility Evaluation note Diagnosis Second trimester state, incidental documented in this encounter [facility] Instructions Note Date & Type Note Facility Instructions Not on filedocumented in this en counter [facility] Reason for Referral Specialty Diagnoses / Procedures Referred By Contac t Referred To Contact [facility]aternal [facility] Medicine Diagnoses Encounter for anatomic survey Procedures US MFM with or without consult Frandy Zavala MD [address], [address] [place] [address] [facility] [address] [place] [address] Referral ID Status Reason Start Date Expiration Date V isits Requested Visits Authorized [id number] Pending Review 07/06/2023 07/05/2024 1 1 Specialty Diagnoses / Procedures Referred By Contren t Referred To Contact [facility] Diagnoses Medication exposure during first trimester of Procedures US [facility]FM with or without consult Frandy Zavala MD [address] [place] [address] [facility] [address] [place] [place] [address] Referral ID Status Reason Start Date Expiration Date V isits Requested Visits Authorized [id number] Pending Review 07/06/2023 07/05/2024 1 1 Additional Source Comments Reason for Visit (unrecogniz ed section and content) Reason Comments Med Management Reason Comments Routine Visit Care Teams (unrecognized sec tion and content) Bindery Leadperson Relationship Specialty Start Date End Date Pablo Lynch MD [address] [place], [place] [id number] PCP - General Family Medicine 01/11/23 FOR [...] BE BASED ON THE PRIMARY CLINICAL RECORDS. [employer] [facility]. provides no warranty or guarantee of the accuracy or completeness of information in this document.
[2023-11-20 10:24] VITALS: BP 127/84; PULSE 84
== END 2023-11-20 10:54 | disposition home or self-care (01) ==
LOC: FBCO 10:19 → FBC 10:20
PROVIDERS: PCP Family Medicine; Visit Provider Obstetrics & Gynecology
DX: O26.893 Other specified pregnancy related conditions, third trimester (principal); Z3A.37 37 weeks gestation of pregnancy
CPT/HCPCS: 59025

== ENCOUNTER 2023-11-24 07:01 | Outpatient (OUT) | payer OTHER, SELFPAY ==
--- OUTSIDE RECORDS SUMMARY | 2023-11-24 07:03 | XMS_ITS | CCD ---
Author Organization [facility] Inform ion Partnership [facility] Care Team Providers Care Masonry Inspector Name Role Phone Unavailable Primary Care Provider [...] Negative - 4(70) +++ mg/dL [facility] Blood, UA Negative Negative - 50 Jer/mcL [facility] Clarity, UA Clear [facility] Color, UA Yellow [facility] Glucose, UA Negative Negative - 1999(110) ++++ mg/dL [facility] Interpretation and review of laboratory results Abnormal [facility] Ketones, UA Negative Negative - 160(16) ++++ mg/dL [facility] Leukocytes, UA Positive Negative - 500+++ Aretha/mcL [facility] Nitrite, UA Negative Negative - Positive [facility] pH, UA 6.5 5 - 9 [facility] Protein, UA Negative Negative - 1999(20) ++++ mg/dL [facility] Spec Grav, UA 1.010 1 - 1.03 [facility] Urobilinogen, UA 0.2 0.2 - 12 mg/dL [facility] with or without consu lton 07-06-2023 [...] Final 07/06/2023 11:40) PATIENT INFO: ID #: [id number] : [birth year] (28 yrs)(F) Name: EMIGDIO VAZQUEZ Visit Date: 07/06/2023 10:12 PERFORMED BY: Attending: Frandy Zavala MD Performed By: Dinorah Rivers RDMS Referred By: Juan Weaver. Address: [address] [place] [address] [place] [address] [facility] PROVIDED: Comprehensive Anatomic Survey 81375 OB Transvaginal 15026 INDICATIONS: Screening for anatomic survey Z36.89 Screening [...] document Interventr. Septum: Not well visualized Cardiac [place]: Appears normal Diaphragm: Not well visualized 3 Vessel View: Appears normal 3 V Trachea View: Not well visualized IVC: Could not document Crossing: Could not document Abdomen Ventral Wall: Appears normal Cord Insertion: Appears normal Situs: Ap (more content not included)... SECTRAPACS Frandy Zavala MD - 07/06/2023 OBSTETRICS REPORT (Signed Final 07/06/2023 11:40) PATIENT INFO: ID #: [id number] : [birth year] (28 yrs)(F) Name: EMIGDIO VAZQUEZ Visit Date: 07/06/2023 10:12 PERFORMED BY: Attending: Frandy Zavala MD Performed By: Dinorah Rivers RDMS Referred By: Juan Weaver. Address: [address] [place] [address] [place] [address] Location: [facility] SERVICE(S) PROVIDED: Comprehensive Anatomic Survey 03126 OB Transvaginal 90761 INDICATIONS: Screening for anatomic survey Z36.89 Screening [...] document Interventr. Septum: Not well visualized Cardiac [place]: Appears normal Diaphragm: Not well visualized 3 [...] diagnostic for feta (more content not included)... [facility] Radiology Study observation (narrative) [facility] Unlisted Genetic Teston 05-01 SEE SCANNED REPORT MANUAL LY TRANSCRIBED RESULTS [facility] HIV 1&2 AB/AG Screen (P24 AG )on 05-18-2023 HIV 1&2 AB/AG Non-Reactive [facility] Hepatitis B surface antigeno n 05-18-2023 Hepatitis B Surface Antigen Negative [facility] No Panel Informationon 05-18 [facility] Rubella IGG immune statuson 05-18-2023 Rubella immune IgG immune [facility] Syphilis Total(Unknown Syphi lis Status)on 05-18-2023 Syphilis Non-Reactive [facility] TSHon 05-14-2023 Thyroid Stimulating (3Rd Generation) Hormone/ Tsh 1.303 [facility] Ultrasound officeon 05-14-20 23 SEE SCANNED REPORT MANUAL LY TRANSCRIBED RESULTS [facility] Radiology Study observation (narrative) [facility] Vital Signs Date Time Vital Sign Value Performing Clinician Faci lity 07-14-2023 09:45-0500 Body weight 64.77 kg Geovanna HUIZAR Work Phone: [facility] 07-14-2023 09:45-0500 Diastolic blood pressure 70 mm[Hg] Geovanna HUIZAR Work Phone: [facility] 07-14-2023 09:45-0500 Systolic blood pressure 112 mm[Hg] Geovanna HUIZAR Work Phone: [facility] 07-06-2023 10:17-0500 Body height 162.6 cm Frandy Zavala MD Work Phone: [facility] 07-06-2023 10:17-0500 Body mass index (BMI) [Ratio] 24.2 kg/m2 Frandy Zavala MD Work Phone: [facility] 07-06-2023 10:17-0500 Body weight 63.96 kg Frandy Zavala MD Work Phone: [facility] 07-06-2023 10:17-0500 Diastolic blood pressure 82 mm[Hg] Frandy Zavala MD Work Phone: [facility] 07-06-2023 10:17-0500 Heart rate 88 /min Frandy Zavala MD Work Phone: [facility] 07-06-2023 10:17-0500 Systolic blood pressure 127 mm[Hg] Frandy Zavala MD Work Phone: [facility] Encounters Encounter Date Encounter Type Care Provider Facility Start: 07-14-2023 End: 07-14-2023 flow sheet Geovanna HUIZAR Work Phone: [facility] Comment on above: Second trimester pre gnancy Start: 07-06-2023 End: 07-06-2023 Office consultation new/estab patient 60 min Frandy Zavala MD Work Phone: [facility] Comment on above: 18 weeks gestation o f (Primary Dx); Attention deficit hyperactivity disorder (ADHD), unspecified ADHD type; Depression affecting ; Medication exposure during first trimester of ; Encounter for anatomic survey Start: 06-18-2023 Chart abstracting Frandy chilel MD Work Phone: [facility] Procedures Date Procedure Procedure Detail Performing Clinician [...] Adult BMI Screening Adult BMI Screen ing [facility] Start: 07-06-2024 Tobacco Screening Tobacco Screening [facility] Start: 07-06-2024 End: 07-06-2024 US MFM with or without consult US MFM with or without consult Imaging Routine Encounter for anatomic survey Expected: 07/06/2024 (Approximate), Expires: 07/06/2024 [facility] Work Phone: Comment on above: Expected: 07/06/2024 (Approximate), Expires: 07/06/2024 Start: 08-12-2023 End: 08-12-2023 Patient encounter procedure 08/12/2023 2:15 PM EDT Appointment [facility] [address] [place] [address] [facility] Start: 08-11-2023 End: 08-11-2023 Patient encounter procedure 08/11/2023 1:50 PM EDT Routine [facility] [address] [place] [address] Juan Palafox DO [address] [place] [address] [facility] Start: 07-06-2023 End: 07-06-2023 Patient encounter procedure 07/06/2023 10:30 AM EST Office Visit [facility] [address] [place] [address] Fradny Zavala MD [address] [address] [facility] Start: 07-06-2023 End: 07-06-2023 Patient encounter procedure 07/06/2023 9:15 AM EST Appointment [facility] [address] [place] [address] [facility] Start: 01-29-2023 COVID-19 Vaccine ( season) COVID-19 Vaccine ( season) [facility] Start: 01-29-2023 Influenza vaccination Influenza Vacc ine [facility] Start: 01-03-2017 DTaP,Tdap and Td Vaccines (7 - Td or Tdap) DTaP,Tdap and Td Vaccines (7 - Td or Tdap) [facility] Start: 2015 Screening for malign ant neoplasm of cervix Pap Smear [facility] Start: 2013 DTaP,Tdap and Td Vaccines (1 - Tdap) DTaP,Tdap and Td Vaccines (1 - Tdap) [facility] Start: 02-05-2012 Adult BMI Screening Adult BMI Screen ing [facility] Start: 2006 Depression Screening Depression Scre ening [facility] Start: 2006 Tobacco Screening Tobacco Screening [facility] Payers Date Payer Category Payer Unknown [id number] Social History Date Type Detail Facility Start: 06-18-2023 Tobacco smoking stat [facility] Tobacco smoking consumption unknown [facility] Start: 03-11-2023 [facility] Start: 1995 Sex Assigned At Female [facility] Start: 12-03-2022 Gender identity Identifies as female gender (finding) [facility] Start: 07-06-2023 Sexual orientation Not on file [facility] Start: 07-06-2023 Tobacco smoking stat [facility] Ex-smoker [facility] History of tobacco use Current smoker [facility] History of tobacco use Cigarette Smoker [facility] Start: 07-06-2023 Tobacco use and exposure Smoke less tobacco non-user [facility] Start: 07-06-2023 Alcohol intake Ex-drinker (finding) [facility] Start: 07-06-2023 History of Social function [facility] Within the past 12 months we worried whether our food would run out before we got money to buy more. Never True [facility] History of Present illness Narrative [...] Medication exposure during first trimester of - [facility] with or without consult; Future I [...] 3.3, 95% CI = [1.1, 9.6]) [PMID: 17234699]. Also methamphetamine exposure during has been associated with maternal and morbidity and mortality. In studies that controlled for confounders, methamphetamine exposure was associated with a two- to fourfold increase in risk of growth restriction, gestational hypertension, preeclampsia, abruption, , intrauterine demise, , and . [PMIDs: 33702133; 89843613;78102708] A meta-analysis of eight studies that compared outcomes for females using methamphetamines with control individuals also reported younger gestational age at , lower weight, smaller head circumference, shorter body length, and lower scores for exposed infants. The meta-analysis did not find significant differences in the rates of preeclampsia and hypertensive disorders. [PMID 49105190]. Amphetamines, including methamphetamine, are excreted into breast [...] reserve section for routine indications Notified the ultrasonic hand solderer about medication exposure Plan reviewed with patient. She vocalized understanding all questions answered. The patient is to continue with routine care in your office Thank you for allowing me to participate in her care. Please contact me if you have any concerns. Frandy Zavala MD, FACOG (she/hers) [facility] [address] [place] [address] This document was created with [employer] technology. Though I make every effort to review the dictation as it is transcribed, on occasion the spoken word can be misinterpreted by the technology leading to inappropriate words, phrases, or sentences. This note is addressed to the requesting provider as a consultation for clinical guidance. Specific medical abbreviations are occasionally used and those are generally approved by the [place]?Board of?Obstetrics and?Gynecology?as well as?Kimmie dennison abbreviations. The above plan of care was based solely on the diagnoses for which a consultation was requested. ?More frequent testing may be indicated based on her other medical/obstetrical conditions. The management of other or medical conditions is beyond the scope of requested consultation and will continue to be followed by the primary welcome center attendant or primary care provider. Note to patient: [...] yes Have you been seen here at [facility] in a previous ? N/a Recent ER visits or hospitalizations? no Bring blood sugar log or meter with you today? (Please bring them with you for every visit at [facility]) n/a Traveled outside the country in the past 6 month no Any concerns that you would like me to mention to the provider today? no documented in this encounter [facility] Instructions 07-06-2023 Patient Instructions Note Date & Type Note Facility 07-06-2023 Instructions Frandy Zavala MD - 07/06/2023 10:30 AM EST [email or web address] documented in this encounter [facility] Note Date & Type Note Facility Evaluation note Diagnosis 18 weeks gestation of - Primary Attention deficit hyperactivity disorder (ADHD), unspecified ADHD type Depression affecting Medication exposure during first trimester of Supervision of other high-risk Encounter for anatomic survey [facility] Note Date & Type Note Facility Evaluation note Diagnosis Second trimester state, incidental documented in this encounter [facility] Instructions Note Date & Type Note Facility Instructions Not on filedocumented in this en counter [facility] Reason for Referral Specialty Diagnoses / Procedures Referred By Contac t Referred To Contact [facility] Diagnoses Encounter for anatomic survey Procedures US MFM with or without consult Frandy Zavala MD [address], [address] [place] [address] [facility] [address] [place] [address] Referral ID Status Reason Start Date Expiration Date V isits Requested Visits Authorized [id number] Pending Review 07/06/2023 07/05/2024 1 1 Specialty Diagnoses / Procedures Referred By Contren t Referred To Contact [facility] Diagnoses Medication exposure during first trimester of Procedures US MFM with or without consult Frandy Zavala MD [address] [place] [address] [facility] [address] [place] [address] Referral ID Status Reason Start Date Expiration Date V isits Requested Visits Authorized [id number] Pending Review 07/06/2023 07/05/2024 1 1 Additional Source Comments Reason for Visit (unrecogniz ed section and content) Reason Comments Med Management Reason Comments Routine Visit Care Teams (unrecognized sec tion and content) Masonry Inspector Relationship Specialty Start Date End Date Pablo Lynch MD [address] [place], [place] [id number] PCP - General Family Medicine 01/11/23 FOR [...] BE BASED ON THE PRIMARY CLINICAL RECORDS. [facility]. provides no warranty or guarantee of the accuracy or completeness of information in this document.
--- NOTE | 2023-11-24 09:12 | US_ITS ---
[address] [address] Patient Name: EMIGDIO AMES MRN: [id number] date: 1995 Sex: F Assigned Patient Location: Current Patient Location: Accession/Order Number: [id number] Exam Date: 11/24/2023 09:15 Report Date: 11/24/2023 10:32 At the request of: SKYE GOINS Procedure: US OB BPP w non-stress EXAMINATION: US OB BPP w non-stress HISTORY: Adderall use disorder F15.10 COMPARISON: No relevant comparison available. TECHNIQUE: Ultrasound biophysical profile was performed in the radiology department. FINDINGS: BREATHING MOVEMENTS: 2 GROSS BODY MOVEMENTS: 2 TONE: 2 QUALITATIVE AMNIOTIC FLUID VOLUME: 2 PRESENTATION: CEPHALIC HEART RATE: 147.54 bpm AMNIOTIC FLUID VOLUME: 1.5 cm GESTATIONAL AGE: 38 weeks 3 days US/US OB BPP w non-stress IMPRESSION: Total biophysical profile score: 8 Electronically authenticated by: ZHEN MATT Date: 11/24/2023 10:32
[2023-11-24 09:57] VITALS: BP 121/80; PULSE 78
== END 2023-11-24 10:30 | disposition home or self-care (01) ==
LOC: US 07:01 → FBC 09:12
PROVIDERS: PCP Family Medicine; Visit Provider Obstetrics & Gynecology
DX: F15.10 Other stimulant abuse, uncomplicated (principal)
CPT/HCPCS: 76818

== ENCOUNTER 2023-11-26 15:55 | Inpatient (IN) | payer OTHER, SELFPAY ==
[2023-11-26] VITALS (28 sets, daily range): BP systolic 117–158; BP diastolic 69–101; PULSE 64–100; TEMP 35.2–36.6
--- OUTSIDE RECORDS SUMMARY | 2023-11-26 16:01 | XMS_ITS ---
Patient Summarization (C-CDA 2.1 CCD) Created on: November 26, 2023 Emigdio Vazquez : 1995 Sex: Female Author Organization Sample organization Care Team Providers Care Cisco Administrator Name Role Phone Unavailable Primary Care Provider Pablo Hansen MD Primary Care Provider Encounters Encounter Date Encounter Type Care Provider Facility Start: 07-14-2023 End: 07-14-2023 flow sheet Geovanna HUIZAR Work Phone: [facility] Comment on above: Second trimester pre gnancy Start: 07-06-2023 End: 07-06-2023 Office consultation new/estab patient 60 min Frandy Zavala MD Work Phone: [facility] [place] Comment on above: 18 weeks gestation o f (Primary Dx); Attention deficit hyperactivity disorder (ADHD), unspecified ADHD type; Depression affecting ; Medication exposure during first trimester of ; Encounter for anatomic survey Start: 06-18-2023 Chart abstracting Frandy chilel MD Work Phone: [facility] [place] Medications Current Medications Medication Drug Class(es) Dates [...] ([employer]) Take by mouth. 0 Active Payers Date Payer Category Payer Unknown [id number] Plan of Treatment Date Care Activity Detail Author Start: 07-06-2024 Adult BMI Screening Adult BMI Screen ing [facility] Start: 07-06-2024 Tobacco Screening Tobacco Screening [facility] Start: 07-06-2024 End: 07-06-2024 US MFM with or without consult US MFM with or without consult Imaging Routine Encounter for anatomic survey Expected: 07/06/2024 (Approximate), Expires: 07/06/2024 [employer] Work Phone: Comment on above: Expected: 07/06/2024 (Approximate), Expires: 07/06/2024 Start: 08-12-2023 End: 08-12-2023 Patient encounter procedure 08/12/2023 2:15 PM EDT Appointment [facility] [place] [phone] [facility] [place] Start: 08-11-2023 End: 08-11-2023 Patient encounter procedure 08/11/2023 1:50 PM EDT Routine [facility] [address] [place] [address] Juan Palafox DO [address] [place] [address] [facility] Start: 07-06-2023 End: 07-06-2023 Patient encounter procedure 07/06/2023 10:30 AM EST Office Visit [place] [address] Frandy Zavala MD [address] [facility], [address] [place] [phone] [facility] [place] Start: 07-06-2023 End: 07-06-2023 Patient encounter procedure 07/06/2023 9:15 AM EST Appointment [place] [place] [phone] [facility] [place] Start: 01-29-2023 COVID-19 Vaccine () COVID-19 Vaccine () [facility] Start: 01-29-2023 Influenza vaccination Influenza Vacc ine [facility] Start: 01-03-2017 DTaP,Tdap and Td Vaccines (7 - Td or Tdap) DTaP,Tdap and Td Vaccines (7 - Td or Tdap) [facility] Start: 2015 Screening for malign ant neoplasm of cervix Pap Smear [facility] Start: 2013 DTaP,Tdap and Td Vaccines (1 - Tdap) DTaP,Tdap and Td Vaccines (1 - Tdap) [facility] Start: 02-05-2012 Adult BMI Screening Adult BMI Screen ing [facility] Start: 2006 Depression Screening Depression Scre ening [facility] Start: 2006 Tobacco Screening Tobacco Screening [facility] Problems Problem Classification Problem Date Documented Date [...] [18 weeks gestation of ] 07-05-2023 Episodic Procedures Date Procedure Procedure Detail Performing Clinician [...] OFFICE Not In Sys tem Ref Prov Results Test Name Value Interpretation Reference Range Facil ity Urinalysis macro (dipstick) panel (U)Ordered By: Celia Chou on 07-14-2023 Bilirubin, UA Negative Negative - 4(70) +++ mg/dL [facility] Blood, UA Negative Negative - 50 Jer/mcL [facility] Clarity, UA Clear [facility] Healthma re Color, UA Yellow [facility] Glucose, UA Negative Negative - 1999(110) ++++ mg/dL [facility] Interpretation and review of laboratory results Abnormal [facility] Ketones, UA Negative Negative - 160(16) ++++ mg/dL [facility] Leukocytes, UA Positive Negative - 500+++ Aretha/mcL [facility] Nitrite, UA Negative Negative - Positive [facility] pH, UA 6.5 5 - 9 [facility] [employer] Protein, UA Negative Negative - 1999(20) ++++ mg/dL [facility] Spec Grav, UA 1.010 1 - 1.03 [facility] Urobilinogen, UA 0.2 0.2 - 12 mg/dL [facility] with or without consu lton 07-06-2023 Radiology Study observation (narrative) [facility] IMPRESSION: 1. Single intrauterine size consistent with dates. 2. Transvaginal Cervical Length = 3.1 cm. RECOMMENDATIONS: 1. Please see MFM consultation documentation from today's encounter. 2. Subsequent follow up or other follow up as clinically determined by primary OB provider unless otherwise specified by MFM. 3. Results forwarded to ordering provider so they can follow up with the patient as necessary. [facility] REPORT (Signed Final 07/06/2023 11:40) PATIENT INFO: ID #: [id number] : [birth year] (28 yrs)(F) Name: EMIGDIO VAZQUEZ Visit Date: 07/06/2023 10:12 PERFORMED BY: Attending: Frandy Zavala MD Performed By: Dinorah Rivers RDMS Referred By: Juan Weaver. Address: [address] [place] [address] [place] [address] Location: [place] [facility] SERVICE(S) PROVIDED: Comprehensive Anatomic Survey 46489 OB Transvaginal 32257 INDICATIONS: Screening for anatomic survey Z36.89 Screening [...] document Interventr. Septum: Not well visualized Cardiac [place]: Appears normal Diaphragm: Not well visualized 3 Vessel View: Appears normal 3 V Trachea View: Not well visualized IVC: Could not document Crossing: Could not document Abdomen Ventral Wall: Appears normal Cord Insertion: Appears normal Situs: Ap (more content not included)... SECTRAFrandy Calderon MD - 07/06/2023 OBSTETRICS REPORT (Signed Final 07/06/2023 11:40) PATIENT INFO: ID #: [id number] : [birth year] (28 yrs)(F) Name: EMIGDIO VAZQUEZ Visit Date: 07/06/2023 10:12 PERFORMED BY: Attending: Frandy Zavala MD Performed By: Dinorah Rivers RDMS Referred By: Juan Palafox DO Ref. Address: [address] [place] [address] [place] [address] Location: [facility] SERVICE(S) PROVIDED: Comprehensive Anatomic Survey 92591 OB Transvaginal 14528 INDICATIONS: Screening for anatomic survey Z36.89 Screening [...] document Interventr. Septum: Not well visualized Cardiac [place]: Appears normal Diaphragm: Not well visualized 3 [...] diagnostic for feta (more content not included)... [employer] Unlisted Genetic Teston 05-01 SEE SCANNED REPORT MANUAL LY TRANSCRIBED RESULTS [facility] HIV 1&2 AB/AG Screen (P24 AG )on 05-18-2023 HIV 1&2 AB/AG Non-Reactive [facility] Hepatitis B surface antigeno n 05-18-2023 Hepatitis B Surface Antigen Negative [facility] No Panel Informationon 05-18 [facility] Rubella IGG immune statuson 05-18-2023 Rubella immune IgG immune [facility] Syphilis Total(Unknown Syphi lis Status)on 05-18-2023 Syphilis Non-Reactive [facility] TSHon 05-14-2023 Thyroid Stimulating (3Rd Generation) Hormone/ Tsh 1.303 [facility] Ultrasound officeon 05-14-20 Radiology Study observation (narrative) [facility] SEE SCANNED REPORT MANUAL LY TRANSCRIBED RESULTS [facility] Social History Date Type Detail Facility Start: 07-06-2023 Sexual orientation Not on file [facility] Start: 07-06-2023 Tobacco smoking stat [facility] Ex-smoker [facility] Start: 07-06-2023 Tobacco use and exposure Smoke less tobacco non-user [facility] Start: 07-06-2023 Alcohol intake Ex-drinker (finding) [facility] Start: 07-06-2023 History of Social function [facility] Start: 06-18-2023 Tobacco smoking stat [facility] Tobacco smoking consumption unknown [facility] Start: 03-11-2023 [facility] Start: 12-03-2022 Gender identity Identifies as female gender (finding) [facility] Start: 1995 Sex Assigned At Female P [facility] History of tobacco use Current smoker [facility] History of tobacco use Cigarette Smoker [facility] Within the past 12 months we worried whether our food would run out before we got money to buy more. Never True [facility] Vital Signs Date Time Vital Sign Value Performing Clinician Faci lity 07-14-2023 09:45-0500 Body weight 64.77 kg Geovanna HUIZAR Work Phone: [facility] 07-14-2023 09:45-0500 Diastolic blood pressure 70 mm[Hg] Geovanna HUIZAR Work Phone: [facility] 07-14-2023 09:45-0500 Systolic blood pressure 112 mm[Hg] Geovanna HUIZAR Work Phone: [facility] 07-06-2023 10:17-0500 Body height 162.6 cm Frandy Zavala MD Work Phone: [facility] 07-06-2023 10:17-0500 Body mass index (BMI) [Ratio] 24.2 kg/m2 Frandy Zavala MD Work Phone: [facility] 07-06-2023 10:17-0500 Body weight 63.96 kg Frandy Zavala MD Work Phone: [facility] 07-06-2023 10:17-0500 Diastolic blood pressure 82 mm[Hg] Frandy Zavala MD Work Phone: [facility] 07-06-2023 10:17-0500 Heart rate 88 /min Frandy Zavala MD Work Phone: [facility] 07-06-2023 10:17-0500 Systolic blood pressure 127 mm[Hg] Frandy Zavala MD Work Phone: [facility] History of Present illness Narrative 07-14-2023 BHUPENDRA [...] 3.3, 95% CI = [1.1, 9.6]) [PMID: 28179279]. Also methamphetamine exposure during has been associated with maternal and morbidity and mortality. In studies that controlled for confounders, methamphetamine exposure was associated with a two- to fourfold increase in risk of growth restriction, gestational hypertension, preeclampsia, abruption, , intrauterine demise, , and . [PMIDs: 84098790; 84097267;31895643] A meta-analysis of eight studies that compared outcomes for females using methamphetamines with control individuals also reported younger gestational age at , lower weight, smaller head circumference, shorter body length, and lower scores for exposed infants. The meta-analysis did not find significant differences in the rates of preeclampsia and hypertensive disorders. [PMID 80052486]. Amphetamines, including methamphetamine, are excreted into breast [...] reserve section for routine indications Notified the recreation program specialist about medication exposure Plan reviewed with patient. She vocalized understanding all questions answered. The patient is to continue with routine care in your office Thank you for allowing me to participate in her care. Please contact me if you have any concerns. Frandy Zavala MD, FACOG (she/hers) Maternal- Medicine [facility] [address] [place] [address] This document was created with [employer] technology. Though I make every effort to review the dictation as it is transcribed, on occasion the spoken word can be misinterpreted by the technology leading to inappropriate words, phrases, or sentences. This note is addressed to the requesting provider as a consultation for clinical guidance. Specific medical abbreviations are occasionally used and those are generally approved by the [place]?Board of?Obstetrics and?Gynecology?as well as?Kimmie dennison abbreviations. The above plan of care was based solely on the diagnoses for which a consultation was requested. ?More frequent testing may be indicated based on her other medical/obstetrical conditions. The management of other or medical conditions is beyond the scope of requested consultation and will continue to be followed by the primary paste plant supervisor or primary care provider. Note to patient: The 21st Century Cures Act makes medical notes like [...] yes Have you been seen here at [facility] in a previous ? N/a Recent ER visits or hospitalizations? no Bring blood sugar log or meter with you today? (Please bring them with you for every visit at [facility]) n/a Traveled outside the country in the past 6 month no Any concerns that you would like me to mention to the provider today? no documented in this encounter [facility] 07-06-2023 Patient Instructions Note Date & Type Note Facility 07-06-2023 Instructions Frandy Zavala MD - 07/06/2023 10:30 AM EST [email or web address] in this encounter [facility] Evaluation note Note Date & Type Note Facility Evaluation note Diagnosis 18 weeks gestation of - Primary Attention deficit hyperactivity disorder (ADHD), unspecified ADHD type Depression affecting Medication exposure during first trimester of Supervision of other high-risk Encounter for anatomic survey documented in this encounter [facility] Evaluation note Note Date & Type Note Facility Evaluation note Diagnosis Second trimester state, incidental documented in this encounter [facility] Instructions Note Date & Type Note Facility Instructions Not on filedocumented in this en counter [facility] Reason for Referral Specialty Diagnoses / Procedures Referred By Contac t Referred To Contact Maternal and Medicine Diagnoses Encounter for anatomic survey Procedures US MFM with or without consult Frandy Zavala MD [address], [address] [place] [address] [facility] [address] [place] [address] Referral ID Status Reason Start Date Expiration Date V isits Requested Visits Authorized [id number] Pending Review 07/06/2023 07/05/2024 1 1 Specialty Diagnoses / Procedures Referred By Jermaine t Referred To Contact Maternal and Medicine Diagnoses Medication exposure during first trimester of Procedures US MFM with or without consult Frandy Zavala MD [address] [place] [address] [facility] [address] [place] [address] Referral ID Status Reason Start Date Expiration Date V isits Requested Visits Authorized [id number] Pending Review 07/06/2023 07/05/2024 1 1 Additional Source Comments Reason for Visit (unrecogniz ed section and content) Reason Comments Med Management Reason Comments Routine Visit Care Teams (unrecognized sec tion and content) Cisco Administrator Relationship Specialty Start Date End Date Pablo Lynch MD [address] [place] [address] PCP - General Family Medicine 01/11/23 FOR [...] BE BASED ON THE PRIMARY CLINICAL RECORDS. [employer] provides no warranty or guarantee of the accuracy or completeness of information in this document.
[2023-11-26] MEDS: 0.9 % SODIUM CHLORIDE 1,000 ML 125 ML IV (16:10)
[2023-11-26 16:32] LABS: Hematocrit 39.4 % (36.0-48.0); Hemoglobin 13.3 g/dL (12.0-16.0); Mean Corpuscular HGB Conc 33.8 g/dL (29.9-35.2); Mean Corpuscular Volume 91.8 fL (81.0-99.0); Mean Platelet Volume 10.3 fL (9.5-13.5); Platelet Count 298 10^3/uL (150-450); Red Blood Count 4.29 10^6/uL (4.20-5.40); Red Cell Distribution Width 12.5 % (11.0-15.0)
[2023-11-26] MEDS: NALBUPHINE HCL 10 MG/ML AMPULE IV (17:35)
[2023-11-26] MEDS: ONDANSETRON PF 4 MG/2 ML VIAL IV (18:52)
--- NOTE | 2023-11-26 19:25 | PM.OBHP ---
OB - H&P: HPI History of Present Illness Chief complaint: Rule out labor : 2 Para: 0 Date of last menstrual period: 02/04/2023 Gestational age based on last menstrual period: 38 10/04 History of Present Dating criteria: LMP confirmed by 1st trimester US care: good care Ultrasounds: normal 1st trimester US and normal mid trimester US Medical complications OB: none Labs Blood type: O (+) positive Rubella: immune RPR/VDLR: nonreactive GBS status: negative HBsAG: negative Review of Systems ROS Status of ROS: 10 or more systems reviewed and unremarkable except as noted in history and below Meds Home Medications and Allergies Home Medications ?Medication ?Instructions ?Recorded ?Confirmed ?Type bupropion HCl 150 mg 24 hr tablet, 150 mg PO DAILY 10/27/23 11/26/23 History extended release (Wellbutrin XL) docusate sodium 100 mg capsule 100 mg PO DAILY 10/27/23 11/26/23 History (Colace) labetalol 100 mg PO BID 10/27/23 11/26/23 History magnesium oxide 400 mg PO DAILY 10/27/23 11/26/23 History vitamins no.159-iron 1 tab PO DAILY 10/27/23 11/26/23 History fumarate 28 mg-folic acid 800 mcg tablet valacyclovir 500 mg tablet 500 mg PO DAILY 10/27/23 11/26/23 History dextroamphetamine-amphetamine 30 30 mg PO DAILY 11/11/23 11/26/23 History mg tablet Allergies Allergy/AdvReac Type Severity Reaction Status Date / Time No Known Drug Allergies Allergy Verified 10/13/23 10:31 Exam Narrative Exam Narrative: Uncomfortable with contractions Constitutional Vital Signs, click to edit/add: Last Vital Signs Temp 95.9 F L 11/26/23 18:26 Pulse 70 11/26/23 18:28 Resp 18 11/26/23 16:13 BP 141/93 H 11/26/23 18:28 Documenting provider has reviewed patient's vital signs: yes Common normals: oriented x3, healthy appearing and well nourished Exam limitations: altered mental status HENMT Common normals: normocephalic Eye Common normals: PERRL Neck & C-Spine Common normals: full ROM General: normal visual inspection Chest Common normals: inspection of chest normal Respiratory Common normals: normal respiratory effort Cardio Common normals: regular rate GI Common normals: Normal to inspection, nondistended, normoactive bowel sounds present Common normals: external appearance normal and appearance of the vagina normal Other: cervix 3cm on admission Back & Pelvis Common normals: no CVA tenderness Extremity Common normals: normal to inspection Neuro Common normals: oriented x3 Results Labs Labs: Short CBC 11/26/23 Range/Units 15:50 WBC 18.0 H (4.0-11.0) 10^3/uL Hgb 13.3 (12.0-16.0) g/dL Hct 39.4 (36.0-48.0) % Plt Count 298 (150-450) 10^3/uL OB - A/P Assessment and Plan (1) Term : Assessment and Plan: Term in labor Plan Admit Expectant Management
--- NOTE | 2023-11-26 19:34 | PM.OBPN ---
OB - PN: Subj Subjective Interval history: Patient thins ready for epidural Exam Constitutional Vital Signs, click to edit/add: Last Vital Signs Temp 95.9 F L 11/26/23 18:26 Pulse 70 11/26/23 18:28 Resp 18 11/26/23 16:13 BP 141/93 H 11/26/23 18:28 Other: 6cm per nurse NST - reassuring Results Labs Labs: Short CBC 11/26/23 Range/Units 15:50 WBC 18.0 H (4.0-11.0) 10^3/uL Hgb 13.3 (12.0-16.0) g/dL Hct 39.4 (36.0-48.0) % Plt Count 298 (150-450) 10^3/uL OB - PN: A/P Assessment and Plan (1) Term : Assessment and Plan: Ok for epidural Expectant Management Plan Ok for epidural Expectant management Time Spent with Patient Time: Total time spent is greater than 50% in coordination of care (as documented) at patient's floor/unit and/or counseling patient: Total time spent with greater than 50% in coordination of care (as documented) at patient's floor/unit and/or counseling patient: less than 15 minutes
[2023-11-26] MEDS: ROPIVACAINE HCL/PF 400 MG/200 ML PREMIX 6 MG EPIDURAL (20:13)
[2023-11-26] MEDS: LABETALOL HCL 100 MG TABLET PO (20:14)
[2023-11-26 22:45] LABS: Amphetamine Screen Urine POSITIVE (NEGATIVE); Barbiturates Screen Urine NEGATIVE (NEGATIVE); Benzodiazepines Screen Urine NEGATIVE (NEGATIVE); Buprenorphine Screen Urine NEGATIVE (NEGATIVE); Cannabinoid Screen Urine NEGATIVE (NEGATIVE); Cocaine Screen Urine NEGATIVE (NEGATIVE); Methadone Screen Urine NEGATIVE (NEGATIVE); Methamphetamines Screen Urine NEGATIVE (NEGATIVE); Opiate Screen Urine NEGATIVE (NEGATIVE); Oxycodone Screen Urine NEGATIVE (NEGATIVE); Phencyclidine Screen Urine NEGATIVE (NEGATIVE); Tricyclic Antidepressant Urine NEGATIVE (NEGATIVE)
--- NOTE | 2023-11-26 22:57 | PM.OBPN ---
OB - PN: Subj Subjective Interval history: Patient thins ready for epidural Exam Constitutional Vital Signs, click to edit/add: Last Vital Signs Temp 97.9 F 11/26/23 21:48 Pulse 87 11/26/23 22:48 Resp 16 11/26/23 21:48 BP 125/80 11/26/23 22:48 Results Labs Labs: Short CBC 11/26/23 Range/Units 15:50 WBC 18.0 H (4.0-11.0) 10^3/uL Hgb 13.3 (12.0-16.0) g/dL Hct 39.4 (36.0-48.0) % Plt Count 298 (150-450) 10^3/uL OB - PN: A/P Assessment and Plan (1) Term : Time Spent with Patient Time: Total time spent is greater than 50% in coordination of care (as documented) at patient's floor/unit and/or counseling patient: Total time spent with greater than 50% in coordination of care (as documented) at patient's floor/unit and/or counseling patient: less than 15 minutes
--- NOTE | 2023-11-26 22:58 | PM.OBPNL ---
Pain Control Pain control: tolerating well and epidural Pelvic Exam Dilation (cm): 9 Effacement (%): 100 Contractions Monitor mode: Palpation Contraction pattern: Irregular Contraction intensity: Moderate to Strong Infant station: +1 Amniotic membrane status: Ruptured (Not particulate MSF) status: Category I Assessment and Plan Assessment: active labor Plan: continuous present management
[2023-11-27] VITALS (18 sets, daily range): BP systolic 121–145; BP diastolic 64–85; PULSE 74–125; TEMP 35.6–36.8
[2023-11-27] MEDS: OXYTOCIN/0.9 % SODIUM CHLORIDE 20 UNITS/1,000 ML PLAST..BAG 125 UNIT IV (00:44)
--- NOTE | 2023-11-27 00:51 | PM.OBPRCVD ---
Procedure Procedure: events: Induced HTN and Low Fluid Volume in Amniotic Sac Induction method: none Delivery augmentation: rupture of membranes Delivery monitor: external FHT and external uterine Route of delivery: Episiotomy Description: none L&D Laceration Description: vaginal - 1st degree Delivery repair: Vicryl Estimated blood loss (mL): 150 Anesthesia type: Epidural Complications: MSF Narrative: of viable male over intact perineum, LANI, bulb suction of mouth and nares prior to delivery of remaining infant - suctioned for minimal fluid. Placenta spontaneously delivered, 3VC vaginal tear just left of midline at 5:00 Repair with 3-0 Vicryl EBL 150 Infant Delivery date: 11/27/23 Gender: male presentation: vertex Placental delivery description: Spontaneous cord description: 3 Vessels
--- NOTE | 2023-11-27 10:22 | P.OBPN_ITS ---
OB - PN: Subj Subjective Interval history: Patient thins ready for epidural Patient comments: no complaints [place] status: doing well Exam Constitutional Vital Signs, click to edit/add: Last Vital Signs Temp 96.8 F L 11/27/23 04:39 Pulse 74 11/27/23 08:26 Resp 16 11/27/23 04:58 BP 124/72 11/27/23 08:26 O2 Del Method Room Air 11/27/23 04:40 Results Labs Labs: Short CBC 11/26/23 Range/Units 15:50 WBC 18.0 H (4.0-11.0) 10^3/uL Hgb 13.3 (12.0-16.0) g/dL Hct 39.4 (36.0-48.0) % Plt Count 298 (150-450) 10^3/uL OB - PN: A/P Assessment and Plan (1) Term : Assessment and Plan: continue current care Plan continue current care Plan - Vaginal Delivery day: 0 Plan: routine care Time Spent with Patient Time: Total time spent is greater than 50% in coordination of care (as documented) at patient's floor/unit and/or counseling patient: Total time spent with greater than 50% in coordination of care (as documented) at patient's floor/unit and/or counseling patient: less than 15 minutes
[2023-11-27] MEDS: IBUPROFEN 600 MG TABLET PO (16:43)
[2023-11-27] MEDS: LABETALOL HCL 100 MG TABLET PO (21:02)
[2023-11-28 00:36] VITALS: BP 123/58; PULSE 75
[2023-11-28 00:37] VITALS: TEMP 35.9
--- NOTE | 2023-11-28 07:54 | PM.OBPN ---
OB - PN: Subj Subjective Interval history: Patient thins ready for epidural Patient comments: no complaints [place] status: doing well Exam Constitutional Vital Signs, click to edit/add: Last Vital Signs Temp 96.6 F L 11/28/23 00:37 Pulse 75 11/28/23 00:36 Resp 16 11/28/23 00:43 BP 123/58 11/28/23 00:36 O2 Del Method Room Air 11/28/23 00:43 Documenting provider has reviewed patient's vital signs: yes Common normals: no apparent distress GI Inspection: normal to inspection Other: Fundus - firm below umbilicus Other: minimal bleeding Extremity Common normals: no calf tenderness OB - PN: A/P Assessment and Plan (1) Term : Assessment and Plan: home Plan home Plan - Vaginal Delivery day: 1 Plan: routine care and discharge home Time Spent with Patient Time: Total time spent is greater than 50% in coordination of care (as documented) at patient's floor/unit and/or counseling patient: Total time spent with greater than 50% in coordination of care (as documented) at patient's floor/unit and/or counseling patient: less than 15 minutes
--- NOTE | 2023-11-28 07:55 | P.DS_ITS ---
DS: Providers Provider Date of admission: 11/26/23 15:55 Primary care physician: MAICOL MERCHANT Admitting clinician: Nasra Smith Attending physician on admission: Juan Palafox Attending physician on discharge: Juan Palafox Discharging clinician: Nasra Smith Anticipated date of discharge: 11/28/23 DS: Diagnosis Discharge Diagnosis (1) Term : Assessment and plan: home this Plan Home this OB - DS: Summary Complications complications: none Delivery method: spontaneous vaginal delivery Gender: male Discharge plan: home Status at Discharge Functional status at discharge: independent ambulation Overall status at discharge: patient is progressing back to baseline Time Spent with Patient Time attestation: Total time spent providing and/or coordinating discharge services: Time spent: less than 30 minutes Exam Constitutional Vital Signs, click to edit/add: Last Vital Signs Temp 96.6 F L 11/28/23 00:37 Pulse 75 11/28/23 00:36 Resp 16 11/28/23 00:43 BP 123/58 11/28/23 00:36 O2 Del Method Room Air 11/28/23 00:43 Discharge Plan Discharge Disposition: Home, Self-Care Condition: Good Discharge Medications: Continued bupropion HCl [Wellbutrin XL] 150 mg tablet extended release 24 hr 150 mg PO DAILY valacyclovir 500 mg tablet 500 mg PO DAILY PNV no.[id number] acid 28 mg iron- 800 mcg tablet 1 tab PO DAILY docusate sodium [Colace] 100 mg capsule 100 mg PO DAILY dextroamphetamine-amphetamine 30 mg tablet 30 mg PO DAILY Patient Comments: takes 3 days a week - only on work days Discontinued labetalol 100 mg PO BID magnesium oxide 400 mg magnesium tablet 400 mg PO DAILY Activity: resume usual activities as tolerated Diet: advance to your usual diet Print Language: Indonesian Activity Restrictions/Additional Instructions: Nothing per vagina for 6 weeks Forms: Portal Instructions
[2023-11-28 08:30] VITALS: TEMP 36.7
[2023-11-28 16:17] VITALS: BP 121/82; PULSE 73
== END 2023-11-28 16:30 | disposition home or self-care (01) | DRG 806 ==
PROVIDERS: Admitting Provider Obstetrics & Gynecology Gynecology; PCP Family Medicine; Visit Provider Obstetrics & Gynecology Gynecology
DX: O13.4 Gestational [pregnancy-induced] hypertension without significant proteinuria, complicating childbirth (principal); O41.03X0 Oligohydramnios, third trimester, not applicable or unspecified; Z37.0 Single live birth; O71.4 Obstetric high vaginal laceration alone; Z79.899 Other long term (current) drug therapy; Z3A.38 38 weeks gestation of pregnancy
CPT/HCPCS: 36415; 59050; 59410; 80307; 85027; 86850; 86900; 86901; 96374; 96375; J2300; J2405; J2795

== ENCOUNTER 2023-12-14 08:23 | Outpatient (OUT) | payer OTHER, SELFPAY ==
--- OUTSIDE RECORDS SUMMARY | 2023-12-14 08:29 | XMS_ITS | CCD ---
Author Organization [facility] Inform ion Partnership [facility] Care Team Providers Care Billing Administrator Name Role Phone Unavailable Primary Care Provider Pablo Hansen MD Primary Care Provider [phone] Medications Current Medications Medication Drug Class(es) Dates [...] UA Negative Negative - 4(70) +++ mg/dL [facility] Blood, UA Negative Negative - 50 Jer/mcL [facility] Clarity, UA Clear [facility] Color, UA Yellow [facility] Glucose, UA Negative Negative - 1999(110) ++++ mg/dL [facility] Interpretation and review of laboratory results Abnormal [facility] Ketones, UA Negative Negative - 160(16) ++++ mg/dL [facility] Leukocytes, UA Positive Negative - 500+++ Aretha/mcL [facility] Nitrite, UA Negative Negative - Positive [facility] pH, UA 6.5 5 - 9 [facility] Protein, UA Negative Negative - 1999(20) ++++ mg/dL [facility] Spec Grav, UA 1.010 1 - 1.03 [facility] Urobilinogen, UA 0.2 0.2 - 12 mg/dL [facility] with or without consu lton [...] Final 07/06/2023 11:40) PATIENT INFO: ID #: [id number] : [birth year] (28 yrs)(F) Name: EMIGDIO VAZQUEZ Visit Date: 07/06/2023 10:12 PERFORMED BY: Attending: Frandy Zavala MD Performed By: Dinorah Rivers RDMS Referred By: Juan Weaver. Address: [address] [place] [address] [place] [address] [facility] PROVIDED: Comprehensive Anatomic Survey 87972 OB Transvaginal 20100 INDICATIONS: Screening for anatomic survey Z36.89 Screening [...] document Interventr. Septum: Not well visualized Cardiac [place]: Appears normal Diaphragm: Not well visualized 3 Vessel View: Appears normal 3 V Trachea View: Not well visualized IVC: Could not document Crossing: Could not document Abdomen Ventral Wall: Appears normal Cord Insertion: Appears normal Situs: Ap (more content not included)... SECTRAPACS Frandy Zavala MD - 07/06/2023 OBSTETRICS REPORT (Signed Final 07/06/2023 11:40) PATIENT INFO: ID #: [id number] : [birth year] (28 yrs)(F) Name: EMIGDIO VAZQUEZ Visit Date: 07/06/2023 10:12 PERFORMED BY: Attending: Frandy Zavala MD Performed By: Dinorah Rivers RDMS Referred By: Juan Weaver. Address: [address] [place] [address] [place] [address] Location: [facility] SERVICE(S) PROVIDED: Comprehensive Anatomic Survey 55981 OB Transvaginal 66540 INDICATIONS: Screening for anatomic survey Z36.89 Screening [...] document Interventr. Septum: Not well visualized Cardiac [place]: Appears normal Diaphragm: Not well visualized 3 [...] diagnostic for feta (more content not included)... [facility] Radiology Study observation (narrative) [facility] Unlisted Genetic Teston 05-01 SEE SCANNED REPORT MANUAL LY TRANSCRIBED RESULTS [facility] HIV 1&2 AB/AG Screen (P24 AG )on 05-18-2023 HIV 1&2 AB/AG Non-Reactive [facility] Hepatitis B surface antigeno n 05-18-2023 Hepatitis B Surface Antigen Negative [facility] No Panel Informationon 05-18 [facility] Rubella IGG immune statuson 05-18-2023 Rubella immune IgG immune [facility] Syphilis Total(Unknown Syphi lis Status)on 05-18-2023 Syphilis Non-Reactive [facility] TSHon 05-14-2023 Thyroid Stimulating (3Rd Generation) Hormone/ Tsh 1.303 [facility] Ultrasound officeon 05-14-20 23 SEE SCANNED REPORT MANUAL LY TRANSCRIBED RESULTS [facility] Radiology Study observation (narrative) [facility] Vital Signs Date Time Vital Sign Value Performing Clinician Faci lity 07-14-2023 09:45-0500 Body weight 64.77 kg Geovanna HUIZAR Work Phone: [facility] 07-14-2023 09:45-0500 Diastolic blood pressure 70 mm[Hg] Geovanna HUIZAR Work Phone: [facility] 07-14-2023 09:45-0500 Systolic blood pressure 112 mm[Hg] Geovanna HUIZAR Work Phone: [facility] 07-06-2023 10:17-0500 Body height 162.6 cm Frandy Zavala MD Work Phone: [facility] 07-06-2023 10:17-0500 Body mass index (BMI) [Ratio] 24.2 kg/m2 Frandy Zavala MD Work Phone: [facility] 07-06-2023 10:17-0500 Body weight 63.96 kg Frandy Zavala MD Work Phone: [facility] 07-06-2023 10:17-0500 Diastolic blood pressure 82 mm[Hg] Frandy Zavala MD Work Phone: [facility] 07-06-2023 10:17-0500 Heart rate 88 /min Frandy Zavala MD Work Phone: [facility] 07-06-2023 10:17-0500 Systolic blood pressure 127 mm[Hg] Frandy Zavala MD Work Phone: [facility] Encounters Encounter Date Encounter Type Care Provider Facility Start: 07-14-2023 End: 07-14-2023 flow sheet Geovanna HUIZAR Work Phone: [facility] Comment on above: Second trimester pre gnancy Start: 07-06-2023 End: 07-06-2023 Office consultation new/estab patient 60 min Frandy Zavala MD Work Phone: [facility] [place] Comment on above: 18 weeks gestation o f (Primary Dx); Attention deficit hyperactivity disorder (ADHD), unspecified ADHD type; Depression affecting ; Medication exposure during first trimester of ; Encounter for anatomic survey Start: 06-18-2023 Chart abstracting Frandy chilel MD Work Phone: [facility] [place] Procedures Date Procedure Procedure Detail Performing Clinician [...] Screening Adult BMI Screen ing [facility] Start: 07-06-2024 Tobacco Screening Tobacco Screening [facility] Start: 07-06-2024 End: 07-06-2024 US M[facility] with or without consult US MFM with or without consult Imaging Routine Encounter for anatomic survey Expected: 07/06/2024 (Approximate), Expires: 07/06/2024 [facility] Work Phone: Comment on above: Expected: 07/06/2024 (Approximate), Expires: 07/06/2024 Start: 08-12-2023 End: 08-12-2023 Patient encounter procedure 08/12/2023 2:15 PM EDT Appointment [facility] [place] [address] [place] [address] [facility] [place] Start: 08-11-2023 End: 08-11-2023 Patient encounter procedure 08/11/2023 1:50 PM EDT Routine [facility] [address] [place] [address] Juan Palafox DO [address] [place] [address] [facility] Start: 07-06-2023 End: 07-06-2023 Patient encounter procedure 07/06/2023 10:30 AM EST Office Visit [facility] [place] [address] [place] [address] Frandy Zavala MD [address] [address] [facility] [place] Start: 07-06-2023 End: 07-06-2023 Patient encounter procedure 07/06/2023 9:15 AM EST Appointment [facility] [place] [address] [place] [address] [facility] [place] Start: 01-29-2023 COVID-19 Vaccine ( season) COVID-19 Vaccine ( season) [facility] Start: 01-29-2023 Influenza vaccination Influenza Vacc ine [facility] Start: 01-03-2017 DTaP,Tdap and Td Vaccines (7 - Td or Tdap) DTaP,Tdap and Td Vaccines (7 - Td or Tdap) [facility] Start: 2015 Screening for malign ant neoplasm of cervix Pap Smear [facility] Start: 2013 DTaP,Tdap and Td Vaccines (1 - Tdap) DTaP,Tdap and Td Vaccines (1 - Tdap) [facility] Start: 02-05-2012 Adult BMI Screening Adult BMI Screen ing [facility] Start: 2006 Depression Screening Depression Scre ening [facility] Start: 2006 Tobacco Screening Tobacco Screening [facility] Payers Date Payer Category Payer Unknown [id number] Social History Date Type Detail Facility Start: 06-18-2023 Tobacco smoking stat [facility] Tobacco smoking consumption unknown [facility] Start: 03-11-2023 [facility] Start: 1995 Sex Assigned At Female P [facility] Start: 12-03-2022 Gender identity Identifies as female gender (finding) [facility] Start: 07-06-2023 Sexual orientation Not on file [facility] Start: 07-06-2023 Tobacco smoking stat [facility] Ex-smoker [facility] History of tobacco use Current smoker [facility] History of tobacco use Cigarette Smoker P [facility] Start: 07-06-2023 Tobacco use and exposure Smoke less tobacco non-user [facility] Start: 07-06-2023 Alcohol intake Ex-drinker (finding) [facility] Start: 07-06-2023 History of Social function [facility] Within the past 12 months we worried whether our food would run out before we got money to buy more. Never True [facility] History of Present illness Narrative [...] Medication exposure during first trimester of - [facility] with or without consult; [...] 3.3, 95% CI = [1.1, 9.6]) [PMID: 39480816]. Also methamphetamine exposure during has been associated with maternal and morbidity and mortality. In studies that controlled for confounders, methamphetamine exposure was associated with a two- to fourfold increase in risk of growth restriction, gestational hypertension, preeclampsia, abruption, , intrauterine demise, , and . [PMIDs: 58307010; 90972892;28359523] A meta-analysis of eight studies that compared outcomes for females using methamphetamines with control individuals also reported younger gestational age at , lower weight, smaller head circumference, shorter body length, and lower scores for exposed infants. The meta-analysis did not find significant differences in the rates of preeclampsia and hypertensive disorders. [PMID 35267869]. Amphetamines, including methamphetamine, are excreted into breast [...] reserve section for routine indications Notified the timber incisor operator about medication exposure Plan reviewed with patient. She vocalized understanding all questions answered. The patient is to continue with routine care in your office Thank you for allowing me to participate in her care. Please contact me if you have any concerns. Frandy Zavala MD, FACOG (she/hers) [facility] [address] [place] [address] This document was created with [employer] technology. Though I make every effort to review the dictation as it is transcribed, on occasion the spoken word can be misinterpreted by the technology leading to inappropriate words, phrases, or sentences. This note is addressed to the requesting provider as a consultation for clinical guidance. Specific medical abbreviations are occasionally used and those are generally approved by the [place]?Board of?Obstetrics and?Gynecology?as well as?Kimmie dennison abbreviations. The above plan of care was based solely on the diagnoses for which a consultation was requested. ?More frequent testing may be indicated based on her other medical/obstetrical conditions. The management of other or medical conditions is beyond the scope of requested consultation and will continue to be followed by the primary plow shaker or primary care provider. Note to patient: [...] yes Have you been seen here at [facility] in a previous ? N/a Recent ER visits or hospitalizations? no Bring blood sugar log or meter with you today? (Please bring them with you for every visit at [facility]) n/a Traveled outside the country in the past 6 month no Any concerns that you would like me to mention to the provider today? no documented in this encounter [facility] Instructions 07-06-2023 Patient Instructions Note Date & Type Note Facility 07-06-2023 Instructions Frandy Zavala MD - 07/06/2023 10:30 AM EST [email or web address] documented in this encounter [facility] Evaluation note Note Date & Type Note Facility Evaluation note Diagnosis 18 weeks gestation of - Primary Attention deficit hyperactivity disorder (ADHD), unspecified ADHD type Depression affecting Medication exposure during first trimester of Supervision of other high-risk Encounter for anatomic survey [facility] Note Date & Type Note Facility Evaluation note Diagnosis Second trimester state, incidental documented in this encounter [facility] Instructions Note Date & Type Note Facility Instructions Not on filedocumented in this en counter [facility] Reason for Referral Specialty Diagnoses / Procedures Referred By Contac t Referred To Contact [facility] Diagnoses Encounter for anatomic survey Procedures US MFM with or without consult Frandy Zavala MD [address], [address] [place] [address] [facility] [address] [place] [address] Referral ID Status Reason Start Date Expiration Date V isits Requested Visits Authorized [id number] Pending Review 07/06/2023 07/05/2024 1 1 Specialty Diagnoses / Procedures Referred By Contren t Referred To Contact [facility] Diagnoses Medication exposure during first trimester of Procedures US MFM with or without consult Frandy Zavala MD [address] [place] [address] [facility] [address] [place] [address] Referral ID Status Reason Start Date Expiration Date V isits Requested Visits Authorized [id number] Pending Review 07/06/2023 07/05/2024 1 1 Additional Source Comments Reason for Visit (unrecogniz ed section and content) Reason Comments Med Management Reason Comments Routine Visit Care Teams (unrecognized sec tion and content) Billing Administrator Relationship Specialty Start Date End Date Pablo Lynch MD [address] [place], [place] [id number] PCP - General Family Medicine 01/11/23 FOR [...] BE BASED ON THE PRIMARY CLINICAL RECORDS. [facility] [employer] [facility]. provides no warranty or guarantee of the accuracy or completeness of information in this document.
--- NOTE | 2023-12-14 13:49 | PC.NURSE ---
Chris Gore and 2 week 4 day Ti, arrive for support. Parents report labor was great, only 6 hours here at hospital before delivery. fed fair at hospital, did start with syringe feed and bottle feeds while at the hospital. Has continued the same as well as 4X per day. Mom states was not her initial plan, but now likes that can participate in feeding the baby. weight obtained. BW 6-12, d/c wt 6-6 weight today 7-15. Parents pleased and surprised with gain. Discussed feeding plan, baby fed directly at the breast at least 4 times daily and has bottle for other feeds. Baby being given 3-5 oz each bottle feed. Discussed appropriate feeding amount expected in first month of life. Verbalized understanding. States baby does have spit up after bottles, and sometimes is fussy as well. Encouraged to feed smaller amount from bottle, burp, soothe and offer breast to top off feed if baby is not settled by 3 oz of pumped milk. Verbalized willingness to try. Family home. Aware to call for questions or concerns as needed.
== END 2023-12-14 14:05 | disposition home or self-care (01) ==
LOC: FBCO 08:24
PROVIDERS: PCP Family Medicine; Visit Provider Obstetrics & Gynecology
DX: Z39.1 Encounter for care and examination of lactating mother (principal)